=== PATIENT | female | born 1980 | race Caucasian/White ===

== ENCOUNTER 2016-12-16 03:08 | Emergency (ER) | payer BC ==
[2016-12-16 03:17] VITALS: RESP 16; TEMP 97.3
--- NOTE | 2016-12-16 03:26 | ED ---
General Adult HPI - General Chief complaint: Seizure Stated complaint: Syncope Time Seen by Provider: 12/16/16 03:25 Source: family, RN notes reviewed, old records reviewed Mode of arrival: wheelchair Limitations: altered mental status - History of Present Illness Initial comments: This is a 36-year-old female here for evaluation of seizure-like activity. Patient was family member of patient being discharged when she had an episode of collapse and unresponsiveness. Patient remains unresponsive, likely postictal. Patient does have history of seizures, has been 4 years since last seizure per boyfriend - Related Data Home Medications Medication Instructions Recorded Confirmed No Known Home Medications [No 11/09/15 12/16/16 Known Home Medications] Allergies Allergy/AdvReac Type Severity Reaction Status Date / Time peanut Allergy Anaphylaxis Verified 12/16/16 03:22 nuts AdvReac Swelling Uncoded 12/16/16 03:17 pork AdvReac Rash/Hives Uncoded 12/16/16 03:17 rice AdvReac Rash/Hives Uncoded 12/16/16 03:17 Review of Systems ROS Statement: Those systems with pertinent positive or pertinent negative responses have been documented in the HPI. ROS Other: All systems not noted in ROS Statement are negative. Past Medical History Past Medical History: Seizure Disorder History of Any Multi-Drug Resistant Organisms: None Reported Past Surgical History: Cholecystectomy, Tonsillectomy Past Psychological History: No Psychological Hx Reported Smoking Status: Former smoker Past Alcohol Use History: None Reported Past Drug Use History: None Reported General Exam Limitations: altered mental status General appearance: alert, anxious, obtunded, in distress Head exam: Present: atraumatic, normocephalic, normal inspection Eye exam: Present: normal appearance, PERRL, EOMI. Absent: scleral icterus, conjunctival injection, periorbital swelling ENT exam: Present: normal exam, mucous membranes moist Neck exam: Present: normal inspection. Absent: tenderness, meningismus, lymphadenopathy Respiratory exam: Present: normal lung sounds bilaterally. Absent: respiratory distress, wheezes, rales, rhonchi, stridor Cardiovascular Exam: Present: normal rhythm, tachycardia, normal heart sounds. Absent: systolic murmur, diastolic murmur, rubs, gallop, clicks GI/Abdominal exam: Present: soft, normal bowel sounds. Absent: distended, tenderness, guarding, rebound, rigid Extremities exam: Present: normal inspection, full ROM, normal capillary refill. Absent: tenderness, pedal edema, joint swelling, calf tenderness Back exam: Present: normal inspection Neurological exam: Present: alert, oriented X3, CN II-XII intact Psychiatric exam: Present: normal affect, normal mood Skin exam: Present: warm, dry, intact, normal color. Absent: rash Course Vital Signs 12/16/16 12/16/16 12/16/16 03:08 03:29 04:05 Temperature 97.3 F L Pulse Rate 111 H 138 H 106 H Respiratory 16 16 16 Rate Blood Pressure 145/78 155/62 120/72 O2 Sat by Pulse 97 97 98 Oximetry EKG Findings - EKG Comments: EKG Findings:: EKG shows sinus tachycardia rate 106, OK 224, QRS was 80, QTc 440 Medical Decision Making - Medical Decision Making 36 female with recurrent seizure here in the emergency room, patient such medic injury, CT brain is negative lab work is normal patient can be discharged home currently awake and alert able to actively without difficulty - Lab Data Result diagrams: 12/16/16 03:12 12/16/16 03:12 Lab Results 12/16/16 12/16/16 Range/Units 03:12 03:12 WBC 19.2 H (3.8-10.6) k/uL RBC 4.22 (3.80-5.40) m/uL Hgb 12.5 (11.4-16.0) gm/dL Hct 39.5 (34.0-46.0) % MCV 93.6 (80.0-100.0) fL MCH 29.6 (25.0-35.0) pg MCHC 31.6 (31.0-37.0) g/dL RDW 12.4 (11.5-15.5) % Plt Count 506 H (150-450) k/uL Neutrophils % 61 % Lymphocytes % 29 % Monocytes % 6 % Eosinophils % 1 % Basophils % 1 % Neutrophils # 11.8 H (1.3-7.7) k/uL Lymphocytes # 5.5 H (1.0-4.8) k/uL Monocytes # 1.1 H (0-1.0) k/uL Eosinophils # 0.2 (0-0.7) k/uL Basophils # 0.1 (0-0.2) k/uL Sodium 144 (137-145) mmol/L Potassium 3.8 (3.5-5.1) mmol/L Chloride 103 (98-107) mmol/L Carbon Dioxide 14 L (22-30) mmol/L Anion Gap 27 mmol/L BUN 13 (7-17) mg/dL Creatinine 0.70 (0.52-1.04) mg/dL Est GFR (MDRD) Af Amer >60 (>60 ml/min/1.73 sqM) Est GFR (MDRD) Non-Af >60 (>60 ml/min/1.73 sqM) Glucose 114 H (74-99) mg/dL Calcium 9.6 (8.4-10.2) mg/dL Phosphorus 6.6 H (2.5-4.5) mg/dL Magnesium 1.9 (1.6-2.3) mg/dL Total Bilirubin 0.6 (0.2-1.3) mg/dL AST 27 (14-36) U/L ALT 32 (9-52) U/L Alkaline Phosphatase 73 (38-126) U/L Total Protein 9.4 H (6.3-8.2) g/dL Albumin 5.0 (3.5-5.0) g/dL Salicylates <1.0 mg/dL Acetaminophen <10.0 ug/mL Serum Alcohol <10 mg/dL - Radiology Data Radiology results: report reviewed (CT brain and C-spine negative for traumatic injury), image reviewed Disposition Clinical Impression: Epileptic seizure Disposition: HOME SELF-CARE Condition: Good Instructions: Recurrent Seizures in Adults (ED) Referrals: None,Stated [Primary Care Provider] - 1-2 days
[2016-12-16] MEDS ORDERED: SODIUM CHLORIDE 0.9% 1,000 ML IV STA (03:29)
[2016-12-16] MEDS ORDERED: SODIUM CHLORIDE 0.9% 500 ML IV STA (03:29)
[2016-12-16] MEDS ORDERED: LORazepam 2 MG/ML SYRINGE IV STA (03:29)
[2016-12-16 03:44] LABS: Basophils # (A) 0.1 k/uL (0-0.2); Basophils % (A) 1 %; CH 29.4; CHCM 31.5; Eosinophils # (A) 0.2 k/uL (0-0.7); Eosinophils % (A) 1 %; HCT 39.5 % (34.0-46.0); HDW 2.35; HGB 12.5 gm/dL (11.4-16.0); Luc # (Auto) 0.52; Luc % (Auto) 3; Lymphocytes # (A) 5.5 k/uL (1.0-4.8); Lymphocytes % (A) 29 %; MCH 29.6 pg (25.0-35.0); MCHC 31.6 g/dL (31.0-37.0); MCV 93.6 fL (80.0-100.0); Monocytes # (A) 1.1 k/uL (0-1.0); Monocytes % (A) 6 %; Neutrophils # (A) 11.8 k/uL (1.3-7.7); Neutrophils % (A) 61 %; RBC 4.22 m/uL (3.80-5.40); RDW 12.4 % (11.5-15.5); WBC 19.2 k/uL (3.8-10.6)
--- NOTE | 2016-12-16 03:53 | CT ---
EXAMINATION TYPE: CT brain rowdy wo con DATE OF EXAM: 12/16/2016 3:48 AM COMPARISON: NONE HISTORY: seizure, fall, AMS CT DLP: 1347.50 mGycm Automated exposure control for dose reduction was used. TECHNIQUE: CT scan of the head and cervical spine are performed without contrast. FINDINGS: The ventricles and sulci appear normal. There is no mass effect nor midline shift. There is no sign of intracranial hemorrhage. The calvarium is intact. The cervical vertebra have normal spacing and alignment. Posterior elements are intact. Facet joints appear normal. Skull base is intact. There is no sign of a fracture. IMPRESSION: Normal CT scan of the brain. Normal CT scan of the cervical spine.
[2016-12-16 03:59] LABS: ALT 32 U/L (9-52); AST 27 U/L (14-36); Acetaminophen <10.0 ug/mL; Alcohol <10 mg/dL; Alkaline Phosphatase 73 U/L (38-126); Anion Gap 27 mmol/L; Blood Urea Nitrogen 13 mg/dL (7-17); Calcium 9.6 mg/dL (8.4-10.2); Carbon Dioxide 14 mmol/L (22-30); Chloride 103 mmol/L (98-107); Glucose 114 mg/dL (74-99); Magnesium 1.9 mg/dL (1.6-2.3); Non-African American GFR(MDRD) >60 (>60 ml/min/1.73 sqM); Phosphorous 6.6 mg/dL (2.5-4.5); Salicylate <1.0 mg/dL; Sodium 144 mmol/L (137-145); Total Bilirubin 0.6 mg/dL (0.2-1.3); Total Protein 9.4 g/dL (6.3-8.2)
[2016-12-16 04:06] VITALS: BP 120/72; PULSE 106
[2016-12-16 04:08] LABS: Potassium 3.8 mmol/L (3.5-5.1)
== END 2016-12-16 04:50 | disposition home or self-care (01) ==
LOC: EC 03:08
DX: G40.909 Epilepsy, unspecified, not intractable, without status epilepticus (principal); R00.0 Tachycardia, unspecified; R41.82 Altered mental status, unspecified; R55 Syncope and collapse; Z87.891 Personal history of nicotine dependence; Z91.010 Allergy to peanuts; Z91.018 Allergy to other foods
CPT/HCPCS: 36415; 93005; 80053; 83735; 84100; 85025; 83520 ×2; 80320; 72125; 70450; 99285; 96374; 96361; J2060

== ENCOUNTER 2017-10-30 14:55 | Emergency (ER) | payer BC, OTHER ==
[2017-10-30 15:37] VITALS: BP 136/87; PULSE 62; RESP 20; TEMP 98.1
[2017-10-30] MEDS ORDERED: ORPHENADRINE 30 MG/ML 2 ML VIAL IM STA (16:01)
[2017-10-30] MEDS ORDERED: KETOROLAC 30 MG/ML 1 ML VIAL IM STA (16:01)
--- NOTE | 2017-10-30 16:12 | ED ---
Back Pain HPI - General Chief Complaint: Back Pain/Injury Stated Complaint: back pain Time Seen by Provider: 10/30/17 15:54 Source: patient Limitations: no limitations - History of Present Illness Initial Comments: 36-year-old female patient presents to the emergency department today for evaluation of back pain. Patient states that she has a history of chronic back pain with frequent muscle spasms. She states that her pain is consistent with her usual pain location however the pain seems to be worse today. Patient states symptoms started when she woke this morning. States it does feel like a spasm. She states that the pain location is and bilateral flanks that radiates down into her lower back. She denies any pain radiation down her aches. Denies any numbness or tingling in her legs. Denies any loss of bowel or bladder control. Denies any saddle anesthesia. She denies any falls or injuries causing the pain. She is able to ambulate. States pain worsens with sitting. She states she has been having some chills, and was nauseated this morning. She denies any nausea or vomiting. Denies any fever or chills. Denies any hematuria, dysuria, urinary urgency, urinary frequency. Patient denies any recent rash, shortness breath, chest pain, abdominal pain, diarrhea, constipation, back pain, numbness, tingling, dizziness, weakness, headache, visual changes, or any other complaints. - Related Data Previous Rx's Medication Instructions Recorded Ibuprofen [Motrin] 800 mg PO Q6HR #30 tab 10/11/17 Lidocaine [Lidoderm 5% Patch] 1 patch TRANSDERM DAILY #7 patch 10/11/17 traMADol HCl [Ultram] 50 mg PO Q6H PRN #20 tab 10/11/17 Ibuprofen [Motrin] 600 mg PO Q8HR PRN #30 tab 10/30/17 Orphenadrine [Norflex] 100 mg PO Q12H #10 tablet.er 10/30/17 traMADol HCL [Ultram] 50 mg PO Q6HR PRN #15 tab 10/30/17 Allergies Allergy/AdvReac Type Severity Reaction Status Date / Time carisoprodol [From Soma] Allergy Unknown Verified 10/30/17 15:37 cyclobenzaprine Allergy Rash/Hives Verified 10/30/17 15:37 methocarbamol [From Robaxin] Allergy Rash/Hives Verified 10/30/17 15:37 naproxen [From Naprosyn] Allergy Nausea Verified 10/30/17 15:37 peanut Allergy Anaphylaxis Verified 10/30/17 15:37 nuts AdvReac Swelling Uncoded 10/30/17 15:37 pork AdvReac Rash/Hives Uncoded 10/30/17 15:37 rice AdvReac Rash/Hives Uncoded 10/30/17 15:37 Review of Systems ROS Statement: Those systems with pertinent positive or pertinent negative responses have been documented in the HPI. ROS Other: All systems not noted in ROS Statement are negative. Past Medical History Past Medical History: Seizure Disorder Additional Past Medical History / Comment(s): migraines History of Any Multi-Drug Resistant Organisms: None Reported Past Surgical History: Cholecystectomy, Tonsillectomy Past Psychological History: No Psychological Hx Reported Smoking Status: Former smoker Past Alcohol Use History: None Reported Past Drug Use History: None Reported General Exam Limitations: no limitations General appearance: alert, in no apparent distress, other (Physical well- developed, well-nourished adult female patient in no acute distress. Vital signs upon presentation are temperature 98.1F, pulse 62, respirations 20, blood pressure 136/87, pulse ox 100% on room air.) Eye exam: Present: normal appearance, PERRL, EOMI. Absent: scleral icterus, conjunctival injection, periorbital swelling ENT exam: Present: normal exam, normal oropharynx, mucous membranes moist Neck exam: Present: normal inspection. Absent: tenderness, meningismus, lymphadenopathy Respiratory exam: Present: normal lung sounds bilaterally. Absent: respiratory distress, wheezes, rales, rhonchi, stridor Cardiovascular Exam: Present: regular rate, normal rhythm, normal heart sounds. Absent: systolic murmur, diastolic murmur, rubs, gallop, clicks GI/Abdominal exam: Present: soft, normal bowel sounds. Absent: distended, tenderness, guarding, rebound, rigid Back exam: Present: normal inspection, CVA tenderness (R), CVA tenderness (L) Neurological exam: Present: alert, oriented X3, CN II-XII intact Psychiatric exam: Present: normal affect, normal mood Skin exam: Present: warm, dry, intact, normal color. Absent: rash Course Vital Signs 10/30/17 15:35 Temperature 98.1 F Pulse Rate 62 Respiratory 20 Rate Blood Pressure 136/87 O2 Sat by Pulse 100 Oximetry Medical Decision Making - Medical Decision Making 36-year-old female patient presented to the emergency room in today for complaints of low back pain. Physical examination did reveal some paraspinal tenderness both left and right. Negative straight leg test bilaterally. Skin to the lower extremities is pink, warm, and dry. Cap refills less than 3 seconds. Patient's pain was in the flank region is also did obtain a urinalysis which was negative for any acute infection. HCG was negative. Patient will be discharged home with prescriptions for pain dictation muscle relaxers. Patient will be instructed to follow-up with her primary care physician for recheck in 1-2 days. She is instructed to return here immediately for any new, worsening, or concerning symptoms. Please note this is the patient's second visit this month requesting pain medications for back pain. I did discuss with the patient that we do not provide narcotic pain prescriptions for chronic pain issues on a routine basis. I told her that she would be unable to get these prescriptions here in the future. She states that she is attempting to establish with a primary care physician and agrees with this. - Lab Data Lab Results 10/30/17 10/30/17 Range/Units 16:03 16:03 Urine Color Light Yellow Urine Appearance Cloudy H (Clear) Urine pH 6.5 (5.0-8.0) Ur Specific [place] 1.007 (1.001-1.035) Urine Protein Negative (Negative) Urine Glucose (UA) Negative (Negative) Urine Ketones Negative (Negative) Urine Blood Negative (Negative) Urine Nitrite Negative (Negative) Urine Bilirubin Negative (Negative) Urine Urobilinogen <2.0 (<2.0) mg/dL Ur Leukocyte Esterase Trace H (Negative) Urine RBC 1 (0-5) /hpf Urine WBC 3 (0-5) /hpf Ur Squamous Epith Cells 4 (0-4) /hpf Urine Bacteria Rare H (None) /hpf Urine Mucus Rare H (None) /hpf Urine HCG, Qual Not Detected (Not Detectd) Disposition Clinical Impression: Acute exacerbation of chronic low back pain Disposition: HOME SELF-CARE Condition: Good Instructions: Acute Low Back Pain (ED) Additional Instructions: Warm moist heat to the lower back. Take medications as directed. Gentle range of motion exercises. Follow-up with your primary care physician for recheck in 1-2 days. Return here immediately for any new, worsening, or concerning symptoms. Prescriptions: Ibuprofen [Motrin] 600 mg PO Q8HR PRN #30 tab PRN Reason: Pain Orphenadrine [Norflex] 100 mg PO Q12H #10 tablet.er traMADol HCL [Ultram] 50 mg PO Q6HR PRN #15 tab PRN Reason: Pain Referrals: None,Stated [Primary Care Provider] - 1-2 days Time of Disposition: 16:40
[2017-10-30 16:28] LABS: Appearance,Urine Cloudy (Clear); Bacteria,Urine Rare /hpf; Bilirubin,Urine Negative (Negative); Glucose,Urine (UA) Negative (Negative); Ketones,Urine Negative (Negative); Leukocyte Esterase,Urine Trace (Negative); Mucus,Urine Rare /hpf; Nitrite,Urine Negative (Negative); PH, Urine 6.5 (5.0-8.0); Particle Count 4022; Protein,Urine Negative (Negative); RBC,Urine 1 /hpf (0-5); Specific Gravity,Urine 1.007 (1.001-1.035); Squamous Epithelial Cell,Urine 4 /hpf (0-4); UA Billing (MACRO vs. MICRO) MICRO; Urobilinogen,Urine <2.0 mg/dL (<2.0); WBC,Urine 3 /hpf (0-5)
== END 2017-10-30 16:47 | disposition home or self-care (01) ==
LOC: EC 14:55
DX: M54.5 Low back pain (principal); R10.9 Unspecified abdominal pain; Z90.49 Acquired absence of other specified parts of digestive tract; Z87.891 Personal history of nicotine dependence; Z88.8 Allergy status to other drugs, medicaments and biological substances; Z88.6 Allergy status to analgesic agent; Z91.010 Allergy to peanuts; Z91.018 Allergy to other foods
CPT/HCPCS: 81001; 81025; 99283; 96372 ×2; J2360; J1885

== ENCOUNTER 2017-11-18 12:50 | Emergency (ER) | payer BC, OTHER ==
[2017-11-18 13:01] VITALS: BP 121/73; PULSE 71; RESP 18; TEMP 98.7
--- NOTE | 2017-11-18 13:11 | ED ---
General Adult HPI - General Chief complaint: Back Pain/Injury Stated complaint: Back Pain Time Seen by Provider: 11/18/17 13:04 Source: patient, RN notes reviewed, old records reviewed Mode of arrival: ambulatory Limitations: no limitations - History of Present Illness Initial comments: 36-year-old female history of chronic back pain presents with 3 days of worsening mid and lower back pain after shoveling snow. Patient has been taking Motrin and tramadol for her chronic back pain, she has been out of these medications for several days. She has an appointment with her new primary care physician on Sunday of this week. She also has an appointment with a chiropractor. She has had no bowel or bladder changes. No sensory deficits lower extremity. No lower extremity numbness tingling, no weakness. No fever or chills. No abdominal pain nausea vomiting. No chest pain or shortness of breath. Back pain is similar to baseline, worse without pain medication. - Related Data Home Medications Medication Instructions Recorded Confirmed No Known Home Medications [No 11/18/17 11/18/17 Known Home Medications] Allergies Allergy/AdvReac Type Severity Reaction Status Date / Time carisoprodol [From Soma] Allergy Unknown Verified 11/18/17 13:15 cyclobenzaprine Allergy Rash/Hives Verified 11/18/17 13:15 ketorolac [From Toradol] Allergy Unknown Verified 11/18/17 13:15 methocarbamol [From Robaxin] Allergy Rash/Hives Verified 11/18/17 13:15 naproxen [From Naprosyn] Allergy Nausea Verified 11/18/17 13:15 peanut Allergy Anaphylaxis Verified 11/18/17 13:15 muscle relaxers Allergy Unknown Uncoded 11/18/17 13:03 nuts AdvReac Swelling Uncoded 11/18/17 13:02 pork AdvReac Rash/Hives Uncoded 11/18/17 13:02 rice AdvReac Rash/Hives Uncoded 11/18/17 13:02 Review of Systems ROS Statement: Those systems with pertinent positive or pertinent negative responses have been documented in the HPI. ROS Other: All systems not noted in ROS Statement are negative. Past Medical History Past Medical History: Seizure Disorder Additional Past Medical History / Comment(s): migraines History of Any Multi-Drug Resistant Organisms: None Reported Past Surgical History: Cholecystectomy, Tonsillectomy Past Psychological History: No Psychological Hx Reported Smoking Status: Former smoker Past Alcohol Use History: None Reported Past Drug Use History: None Reported General Exam Limitations: no limitations General appearance: alert, in no apparent distress Head exam: Present: atraumatic, normocephalic Eye exam: Present: normal appearance, PERRL, EOMI ENT exam: Present: normal exam. Absent: normal oropharynx, mucous membranes dry Neck exam: Present: normal inspection. Absent: tenderness, meningismus Respiratory exam: Present: normal lung sounds bilaterally. Absent: respiratory distress, wheezes Cardiovascular Exam: Present: regular rate, normal rhythm GI/Abdominal exam: Present: soft. Absent: distended, tenderness, guarding Extremities exam: Present: normal inspection, full ROM, normal capillary refill. Absent: pedal edema Back exam: Present: normal inspection, full ROM, tenderness, paraspinal tenderness Neurological exam: Present: alert, oriented X3, CN II-XII intact, normal gait, reflexes normal. Absent: motor sensory deficit Psychiatric exam: Present: normal affect, normal mood Skin exam: Present: warm, dry, intact. Absent: cyanosis, diaphoretic Course Vital Signs 11/18/17 12:57 Temperature 98.7 F Pulse Rate 71 Respiratory 18 Rate Blood Pressure 121/73 O2 Sat by Pulse 99 Oximetry Medical Decision Making - Medical Decision Making 36-year-old female acute on chronic back pain. Patient has no alarming features on history or physical exam. She is out of her pain medication. These medicines will be filled. She will continue her back exercises and follow -up with her primary care physician. Disposition Clinical Impression: Mechanical back pain Disposition: HOME SELF-CARE Condition: Good Instructions: Chronic Back Pain (ED) Additional Instructions: Please maintain appointment with primary care physician on Sunday. Referrals: None,Stated [Primary Care Provider] - 1-2 days Time of Disposition: 13:11
== END 2017-11-18 13:28 | disposition home or self-care (01) ==
LOC: EC 12:50
DX: M54.5 Low back pain (principal); G89.29 Other chronic pain; Z87.891 Personal history of nicotine dependence; Z88.8 Allergy status to other drugs, medicaments and biological substances; Z88.6 Allergy status to analgesic agent; Z91.010 Allergy to peanuts; Z91.018 Allergy to other foods; Y93.H1 Activity, digging, shoveling and raking
CPT/HCPCS: 99283

== ENCOUNTER 2017-11-29 19:13 | Emergency (ER) | payer OTHER ==
[2017-11-29 19:19] VITALS: BP 133/84; PULSE 66; RESP 18; TEMP 100.3
[2017-11-29 21:18] LABS: Appearance,Urine Clear (Clear); Bilirubin,Urine Negative (Negative); Blood,Urine Negative (Negative); Color,Urine Light Yellow; Glucose,Urine (UA) Negative (Negative); Ketones,Urine Negative (Negative); Leukocyte Esterase,Urine Negative (Negative); Nitrite,Urine Negative (Negative); Protein,Urine Negative (Negative); Specific Gravity,Urine 1.007 (1.001-1.035); Urobilinogen,Urine <2.0 mg/dL (<2.0)
--- NOTE | 2017-11-29 21:39 | ED ---
Back Pain HPI - General Chief Complaint: Back Pain/Injury Stated Complaint: back pain/vomiting Time Seen by Provider: 11/29/17 20:07 Source: patient, RN notes reviewed, old records reviewed Limitations: no limitations - History of Present Illness Initial Comments: This patient is a 36-year-old female presents with lower back pain. She reports having severe pain it caused her to vomit today. She reported worse with movement. She said she's had this happen in the past before. She states she usually has to have a short course of pain medicine to get through this. She states Motrin has not been helping. She denies any urinary symptoms. - Related Data Home Medications Medication Instructions Recorded Confirmed No Known Home Medications [No 11/18/17 11/29/17 Known Home Medications] Allergies Allergy/AdvReac Type Severity Reaction Status Date / Time carisoprodol [From Soma] Allergy Unknown Verified 11/29/17 19:55 cyclobenzaprine Allergy Rash/Hives Verified 11/29/17 19:55 ketorolac [From Toradol] Allergy Unknown Verified 11/29/17 19:55 methocarbamol [From Robaxin] Allergy Rash/Hives Verified 11/29/17 19:55 naproxen [From Naprosyn] Allergy Nausea Verified 11/29/17 19:55 peanut Allergy Anaphylaxis Verified 11/29/17 19:55 muscle relaxers Allergy Unknown Uncoded 11/29/17 19:19 nuts AdvReac Swelling Uncoded 11/29/17 19:19 pork AdvReac Rash/Hives Uncoded 11/29/17 19:19 rice AdvReac Rash/Hives Uncoded 11/29/17 19:19 Review of Systems ROS Statement: Those systems with pertinent positive or pertinent negative responses have been documented in the HPI. ROS Other: All systems not noted in ROS Statement are negative. Past Medical History Past Medical History: Seizure Disorder Additional Past Medical History / Comment(s): migraines, History of Any Multi-Drug Resistant Organisms: None Reported Past Surgical History: Cholecystectomy, Tonsillectomy Past Psychological History: No Psychological Hx Reported Smoking Status: Never smoker Past Alcohol Use History: None Reported Past Drug Use History: None Reported General Exam - General Exam Comments Initial Comments: This patient is a 36-year-old female. No distress. Limitations: no limitations General appearance: alert, in no apparent distress Head exam: Present: atraumatic, normocephalic, normal inspection Eye exam: Present: normal appearance, PERRL, EOMI. Absent: scleral icterus, conjunctival injection, periorbital swelling ENT exam: Present: normal exam, mucous membranes moist Neck exam: Present: normal inspection. Absent: tenderness, meningismus, lymphadenopathy Cardiovascular Exam: Present: regular rate, normal rhythm, normal heart sounds. Absent: systolic murmur, diastolic murmur, rubs, gallop, clicks GI/Abdominal exam: Present: soft, normal bowel sounds. Absent: distended, tenderness, guarding, rebound, rigid Extremities exam: Present: normal inspection, full ROM, normal capillary refill. Absent: tenderness, pedal edema, joint swelling, calf tenderness Back exam: Present: normal inspection, full ROM, tenderness (lumbar tenderness) Neurological exam: Present: alert, oriented X3, CN II-XII intact Psychiatric exam: Present: normal affect, normal mood Course Vital Signs 11/29/17 19:14 Temperature 100.3 F H Pulse Rate 66 Respiratory 18 Rate Blood Pressure 133/84 O2 Sat by Pulse 100 Oximetry Medical Decision Making - Medical Decision Making It is a 36-year-old female with complaints of lower back pain causing her to vomit. She runs with a low-grade temperature of 100.3. I requested a urine sample. Patient left a urine sample. Patient reports that she has to leave. She will be leaving against medical advice. She said she has to leave because her children are being bad acting up - Lab Data Lab Results 11/29/17 Range/Units 20:55 Urine Color Light Yellow Urine Appearance Clear (Clear) Urine pH 7.0 (5.0-8.0) Ur Specific [place] 1.007 (1.001-1.035) Urine Protein Negative (Negative) Urine Glucose (UA) Negative (Negative) Urine Ketones Negative (Negative) Urine Blood Negative (Negative) Urine Nitrite Negative (Negative) Urine Bilirubin Negative (Negative) Urine Urobilinogen <2.0 (<2.0) mg/dL Ur Leukocyte Esterase Negative (Negative) Disposition Clinical Impression: Mechanical back pain Disposition: Left Against Medical Advice Condition: Stable Referrals: None,Stated [Primary Care Provider] - 1-2 days
== END 2017-11-29 21:00 | disposition left against medical advice (07) ==
LOC: EC 19:13
DX: M54.5 Low back pain (principal); R11.10 Vomiting, unspecified; R50.9 Fever, unspecified; Z88.6 Allergy status to analgesic agent; Z88.8 Allergy status to other drugs, medicaments and biological substances; Z91.010 Allergy to peanuts; Z91.018 Allergy to other foods
CPT/HCPCS: 81003; 99284

== ENCOUNTER 2018-01-14 12:09 | Emergency (ER) | payer OTHER ==
[2018-01-14 12:33] VITALS: BP 119/85; PULSE 70; RESP 18; TEMP 98.5
--- NOTE | 2018-01-14 13:05 | ED ---
Back Pain HPI - General Chief Complaint: Back Pain/Injury Stated Complaint: Back Pain Time Seen by Provider: 01/14/18 12:41 Source: patient, RN notes reviewed Limitations: no limitations - History of Present Illness Initial Comments: This is a 37-year-old female presents to the emergency department with chief complaint of acute on chronic back pain. Patient states that she is experiencing mid to low back pain on both sides of her spine. She states that she is experiencing muscle spasms. Denies any recent injuries or falls. Increase in pain started this morning. She states that this is normal for her but does not have a family doctor to treat her. She states that she does have an appointment set up for next Sunday. This patient is well-known to the emergency department. She requests to have a starter pack of Tylenol with Codeine. I explained to patient that treatment for muscle spasms is anti- inflammatories or muscle relaxers. When offered Toradol and Norflex, patient states that she is ALLERGIC to both. Denies any saddle paresthesias or loss of bladder or bowel function. Denies any numbness or tingling. Denies any urinary symptoms such as increased frequency, dysuria or hematuria. Denies fever , chills, chest pain, shortness of breath, abdominal pain, nausea or vomiting, constipation or diarrhea, headache or vision changes. - Related Data Previous Rx's Medication Instructions Recorded Cyclobenzaprine [Flexeril] 10 mg PO TID #12 tab 01/14/18 Ibuprofen 600 mg PO Q6HR #20 tablet 01/14/18 Allergies Allergy/AdvReac Type Severity Reaction Status Date / Time carisoprodol [From Soma] Allergy Unknown Verified 01/14/18 12:46 cyclobenzaprine Allergy Rash/Hives Verified 01/14/18 12:46 ketorolac [From Toradol] Allergy Unknown Verified 01/14/18 12:46 methocarbamol [From Robaxin] Allergy Rash/Hives Verified 01/14/18 12:46 naproxen [From Naprosyn] Allergy Nausea Verified 01/14/18 12:46 orphenadrine [From Norflex] Allergy Vomiting Verified 01/14/18 12:46 peanut Allergy Anaphylaxis Verified 01/14/18 12:46 muscle relaxers Allergy Unknown Uncoded 01/14/18 12:34 nuts AdvReac Swelling Uncoded 01/14/18 12:34 pork AdvReac Rash/Hives Uncoded 01/14/18 12:34 rice AdvReac Rash/Hives Uncoded 01/14/18 12:34 Review of Systems ROS Statement: Those systems with pertinent positive or pertinent negative responses have been documented in the HPI. ROS Other: All systems not noted in ROS Statement are negative. Past Medical History Past Medical History: Seizure Disorder Additional Past Medical History / Comment(s): migraines, back pain History of Any Multi-Drug Resistant Organisms: None Reported Past Surgical History: Cholecystectomy, Tonsillectomy Past Psychological History: No Psychological Hx Reported Smoking Status: Never smoker Past Alcohol Use History: None Reported Past Drug Use History: None Reported General Exam - General Exam Comments Initial Comments: General: Awake and alert, well-developed; in no apparent distress. HEENT: Head atraumatic, normocephalic. Pupils are equal, round and reactive to light. Extraocular movements intact. Neck: Supple. Normal ROM. Cardiovascular: Regular rate and rhythm. No murmurs, rubs or gallops. Chest symmetrical. Respiratory: Lungs clear to auscultation bilaterally. No wheezes, rales or rhonchi. Normal respiratory effort with no use of accessory muscles. Musculoskeletal: Normal ROM, no tenderness bilateral upper and lower extremities. Normal range of motion of spine. Tenderness on palpation of bilateral mid back to lumbar paraspinal muscles. Ambulating normally. Skin: [place], warm and dry without rashes or lesions. Neurological: Alert and oriented x3. CN II-XII grossly intact. Speech is fluent and answers are appropriate. No focal neuro deficits. Limitations: no limitations Course Vital Signs 01/14/18 12:30 Temperature 98.5 F Pulse Rate 70 Respiratory 18 Rate Blood Pressure 119/85 O2 Sat by Pulse 100 Oximetry Medical Decision Making - Medical Decision Making This is a 37-year-old female who presents to the emergency department with chief complaint of acute on chronic back pain. Patient denies any saddle paresthesias, loss of bladder or bowel function or numbness and tingling. She denies any recent falls or injuries. She states that she is experiencing muscle spasms which is normal for her. States that she is ALLERGIC to Toradol and Norflex and requests to have a starter pack for Tylenol with Codeine. Patient states that she has taken ibuprofen and Flexeril in the past without having a reaction. I offered these medications to patient. Patient and her are well-known to the emergency department and display drug-seeking behavior. Tugg was run and it is noted that patient travels all over [place] to receive prescriptions for tramadol. She is in no acute distress and will be discharged home. She is in agreement and voices understanding. All questions answered. Disposition Clinical Impression: Back muscle spasm Disposition: HOME SELF-CARE Condition: Good Instructions: Muscle Spasm (ED), Chronic Back Pain (ED) Additional Instructions: Please take medications as prescribed. Please follow up with primary care provider within 1-2 days. Return to emergency department if symptoms should worsen or any concerns arise. Prescriptions: Cyclobenzaprine [Flexeril] 10 mg PO TID #12 tab Ibuprofen 600 mg PO Q6HR #20 tablet Referrals: None,Stated [Primary Care Provider] - 1-2 days Time of Disposition: 13:02
== END 2018-01-14 13:14 | disposition home or self-care (01) ==
LOC: EC 12:09
DX: M62.830 Muscle spasm of back (principal); Z88.6 Allergy status to analgesic agent; Z88.8 Allergy status to other drugs, medicaments and biological substances; Z91.010 Allergy to peanuts; Z91.018 Allergy to other foods
CPT/HCPCS: 99283

== ENCOUNTER 2019-03-01 10:45 | Emergency (ER) | payer OTHER ==
--- NOTE | 2019-03-01 11:07 | ED ---
Female Urogenital HPI - General Chief complaint: Vaginal Bleeding Stated complaint: Poss miscarriage Time Seen by Provider: 03/01/19 10:52 Source: patient Mode of arrival: ambulatory Limitations: no limitations - History of Present Illness Initial comments: Patient is a female, 38 years of age who presents with chief complaint of vaginal bleeding for the last 2 days. She is approximately 6 weeks and 2 days . Patient states that she has been having periodic bleeding over the last 2 days. She's been to the emergency department by her house twice for evaluation and was referred to this hospital for an ultrasound. On previous evaluations, patient was noted to have an initial beta hCG about 3500 with a repeat of 2800. She was discharged with Instructions for a threatened . Patient denies any fever, chills, chest pain or shortness of breath. She has mild abdominal cramping. The patient cannot identify an inciting incident. There are no aggravating or alleviating factors. Timing is constant. - Related Data Previous Rx's Medication Instructions Recorded Cyclobenzaprine [Flexeril] 10 mg PO TID #12 tab 01/14/18 Ibuprofen 600 mg PO Q6HR #20 tablet 01/14/18 Allergies Allergy/AdvReac Type Severity Reaction Status Date / Time carisoprodol [From Soma] Allergy Unknown Verified 03/01/19 10:51 cyclobenzaprine Allergy Rash/Hives Verified 03/01/19 10:51 ketorolac [From Toradol] Allergy Unknown Verified 03/01/19 10:51 methocarbamol [From Robaxin] Allergy Rash/Hives Verified 03/01/19 10:51 naproxen [From Naprosyn] Allergy Nausea Verified 03/01/19 10:51 orphenadrine [From Norflex] Allergy Vomiting Verified 03/01/19 10:51 peanut Allergy Anaphylaxis Verified 03/01/19 10:51 muscle relaxers Allergy Unknown Uncoded 03/01/19 10:51 nuts AdvReac Swelling Uncoded 03/01/19 10:51 pork AdvReac Rash/Hives Uncoded 03/01/19 10:51 rice AdvReac Rash/Hives Uncoded 03/01/19 10:51 Review of Systems ROS Statement: Those systems with pertinent positive or pertinent negative responses have been documented in the HPI. ROS Other: All systems not noted in ROS Statement are negative. Gastrointestinal: Reports: abdominal pain Genitourinary: Reports: as per HPI Past Medical History Past Medical History: Seizure Disorder Additional Past Medical History / Comment(s): migraines, back pain History of Any Multi-Drug Resistant Organisms: None Reported Past Surgical History: Cholecystectomy, Tonsillectomy Past Psychological History: No Psychological Hx Reported Smoking Status: Never smoker Past Alcohol Use History: None Reported Past Drug Use History: None Reported General Exam Limitations: no limitations General appearance: alert, in no apparent distress Head exam: Present: atraumatic, normocephalic Eye exam: Present: normal appearance, PERRL ENT exam: Present: normal exam, mucous membranes moist Neck exam: Present: normal inspection Respiratory exam: Present: normal lung sounds bilaterally, respiratory distress. Absent: wheezes, rales Cardiovascular Exam: Present: regular rate, normal rhythm GI/Abdominal exam: Present: soft. Absent: distended, tenderness Rectal exam: Present: deferred Extremities exam: Present: normal inspection Back exam: Present: normal inspection Neurological exam: Present: alert, oriented X3, CN II-XII intact, normal gait Psychiatric exam: Present: normal affect, normal mood Skin exam: Present: warm, dry, intact Course Vital Signs 03/01/19 10:48 Temperature 97.9 F Pulse Rate 62 Respiratory 16 Rate Blood Pressure 116/75 O2 Sat by Pulse 100 Oximetry Medical Decision Making - Medical Decision Making Patient presents chief complaint of vaginal bleeding, approximately 6 weeks and 2 days . On initial evaluation, vitals are stable, patient is a no acute distress. She will be evaluated with basic labs including a urinalysis, and type and screen. Of note, patient has had declining beta hCGs with an initial of about 3500, and a repeat of 2800. She's not had an ultrasound. She has follow-up with Dr. Watkins on March 11. 1:12 PM Urinalysis shows hematuria with 11 white cells, given patient is asymptomatic as is likely not a urinary tract infection. Patient refusing other labs. Clarified that her most recent beta hCG at 2800 was performed this morning at 3 AM. Ultrasound does not show any evidence of an intrauterine or extrauterine . At this time this is very likely a missed . The patient was instructed to speak with her OB first thing Sunday morning, keep her follow-up appointment. Return to ED if symptoms worsen or change. - Lab Data Lab Results 03/01/19 Range/Units 11:26 Urine Color Yellow Urine Appearance Turbid H (Clear) Urine pH 7.5 (5.0-8.0) Ur Specific [place] 1.017 (1.001-1.035) Urine Protein Trace H (Negative) Urine Glucose (UA) Negative (Negative) Urine Ketones Negative (Negative) Urine Blood Moderate H (Negative) Urine Nitrite Negative (Negative) Urine Bilirubin Negative (Negative) Urine Urobilinogen <2.0 (<2.0) mg/dL Ur Leukocyte Esterase Small H (Negative) Urine RBC 11 H (0-5) /hpf Urine WBC 2 (0-5) /hpf Ur Squamous Epith Cells 6 H (0-4) /hpf Amorphous Sediment Moderate H (None) /hpf Urine Bacteria Rare H (None) /hpf Urine Mucus Rare H (None) /hpf Disposition Clinical Impression: Missed Disposition: HOME SELF-CARE Condition: Good Instructions (If sedation given, give patient instructions): Miscarriage (ED) Is patient prescribed a controlled substance at d/c from ED?: No Referrals: None,Stated [Primary Care Provider] - 1-2 days
[2019-03-01 11:50] LABS: Amorphous Sediment,Urine Moderate /hpf; Appearance,Urine Turbid (Clear); Bacteria,Urine Rare /hpf; Bilirubin,Urine Negative (Negative); Blood,Urine Moderate (Negative); Color,Urine Yellow; Glucose,Urine (UA) Negative (Negative); Ketones,Urine Negative (Negative); Leukocyte Esterase,Urine Small (Negative); Mucus,Urine Rare /hpf; Nitrite,Urine Negative (Negative); PH, Urine 7.5 (5.0-8.0); Protein,Urine Trace (Negative); RBC,Urine 11 /hpf (0-5); Specific Gravity,Urine 1.017 (1.001-1.035); Squamous Epithelial Cell,Urine 6 /hpf (0-4); Urobilinogen,Urine <2.0 mg/dL (<2.0); WBC,Urine 2 /hpf (0-5)
--- NOTE | 2019-03-01 12:57 | US ---
EXAMINATION TYPE: Transabdominal DATE OF EXAM: 03/01/2019 12:21 PM COMPARISON: NONE CLINICAL HISTORY: Pain. Bleeding x 2 days. RLQ pain. EXAM PERFORMED: Transvaginal (TV) and Transabdominal (TA) EXAM MEASUREMENTS: GESTATIONAL AGE / DATING Dates by LMP: ( 4 weeks/1 days) EDC: 11/07/2019 Dates by Current Scan for: No IUP seen at this time MATERNAL ANATOMY Uterus: 8.1x 4.9 x 3.9 cm Right Ovary: 2.5 x 1.8 x 1.5 cm Left Ovary: 3.3 x 1.2 x 1.6 cm Post CDS / Adnexa: no Presence of free fluid: no Presence of corpus luteal cyst: right ovarian lesion = 1.3 x 1.1 x 0.9 cm Presence of subchorionic bleed: no GESTATION / SURVEY IUP: No IUP seen at this time Date of LMP: 01/31/2019, Beta HcG (if available): Not available at this time No GS, YS or CRL visualized. Endometrium measured 1.0 cm with internal focal area = 2.8 x 0.9 cm. In right adnexa, prominent vessels and peristalsing bowel visualized, making it unable to accurately de termine presence or absence of ectopic. IMPRESSION: WE HAVE NOT IDENTIFIED INTRAUTERINE OR EXTRAUTERINE GESTATION. SHORT-TERM FOLLOW-UP +/- SERIAL BETA H CGS WOULD BE SUGGESTED.
[2019-03-01 13:25] VITALS: BP 115/78; PULSE 68; RESP 18; TEMP 97.8
== END 2019-03-01 13:25 | disposition home or self-care (01) ==
LOC: EC 10:45
DX: O02.1 Missed abortion (principal); Z3A.01 Less than 8 weeks gestation of pregnancy; Z88.8 Allergy status to other drugs, medicaments and biological substances; Z88.6 Allergy status to analgesic agent; Z91.010 Allergy to peanuts; Z91.018 Allergy to other foods
CPT/HCPCS: 76801; 76817; 81001; 99284

== ENCOUNTER 2019-04-03 09:12 | Emergency (ER) | payer OTHER ==
[2019-04-03 09:21] VITALS: RESP 18
[2019-04-03] MEDS ORDERED: IBUPROFEN 600 MG TAB PO STA (10:03)
[2019-04-03] MEDS ORDERED: traMADol 50 MG STARTER PACK 3 TAB BTL PO STA (10:29)
--- NOTE | 2019-04-03 10:29 | ED ---
Back Pain HPI - General Chief Complaint: Back Pain/Injury Stated Complaint: Back Pain Time Seen by Provider: 04/03/19 09:42 Source: patient, RN notes reviewed, old records reviewed Limitations: no limitations - History of Present Illness Initial Comments: Patient is a 38-year-old female presents emergency room today for evaluation for acute exacerbation of chronic back pain. Patient states that she woke up today complaining of this back discomfort. Patient states that she has no saddle anesthesias. She denies any fevers or chills. She reports that she's been out of her tramadol for chronic back pain. Patient states that her last prescription was filled in February. Patient states that she is planning to see any specialist in the upcoming month. Patient states that he is she has had no other symptoms at this time. - Related Data Previous Rx's Medication Instructions Recorded Ibuprofen [Motrin] 600 mg PO Q8HR PRN #30 tab 04/03/19 Allergies Allergy/AdvReac Type Severity Reaction Status Date / Time carisoprodol [From Soma] Allergy Unknown Verified 04/03/19 09:30 cyclobenzaprine Allergy Rash/Hives Verified 04/03/19 09:30 ketorolac [From Toradol] Allergy Unknown Verified 04/03/19 09:30 methocarbamol [From Robaxin] Allergy Rash/Hives Verified 04/03/19 09:30 naproxen [From Naprosyn] Allergy Nausea Verified 04/03/19 09:30 orphenadrine [From Norflex] Allergy Vomiting Verified 04/03/19 09:30 peanut Allergy Anaphylaxis Verified 04/03/19 09:30 muscle relaxers Allergy Unknown Uncoded 04/03/19 09:21 nuts AdvReac Swelling Uncoded 04/03/19 09:21 pork AdvReac Rash/Hives Uncoded 04/03/19 09:21 rice AdvReac Rash/Hives Uncoded 04/03/19 09:21 Review of Systems ROS Statement: Those systems with pertinent positive or pertinent negative responses have been documented in the HPI. ROS Other: All systems not noted in ROS Statement are negative. Past Medical History Past Medical History: Seizure Disorder Additional Past Medical History / Comment(s): migraines, back pain History of Any Multi-Drug Resistant Organisms: None Reported Past Surgical History: Cholecystectomy, Tonsillectomy Past Psychological History: No Psychological Hx Reported Smoking Status: Never smoker Past Alcohol Use History: None Reported Past Drug Use History: None Reported General Exam - General Exam Comments Initial Comments: This is a 38-year-old female, alert and oriented. No significant distress. General: Well appearing, well nourished, in no distress. Oriented x 3, normal mood and affect . Ambulating without difficulty. Skin: Good turgor, no rash, unusual bruising or prominent lesions Hair: Normal texture and distribution. HEENT: Head: Normocephalic, atraumatic, no visible or palpable masses, depressions, or scaring. Eyes: Visual acuity intact, conjunctiva clear, sclera non-icteric, EOM intact, PERRL. Ears: EACs clear, TMs translucent & cone of light visualized. hearing intact. Nose: No external lesions, mucosa non-inflamed, septum and turbinates normal Mouth: Mucous membranes moist, no mucosal lesions. Teeth/Gums: No obvious caries or periodontal disease. No gingival inflammation or significant resorption. Pharynx: Mucosa non-inflamed, no tonsillar hypertrophy or exudate Neck: Supple, without lesions, bruits, or adenopathy, thyroid non-enlarged and non-tender Heart: No cardiomegaly or thrills; regular rate and rhythm, no murmur or gallop Lungs: Clear to auscultation and percussion Abdomen: Bowel sounds normal, no tenderness, organomegaly, masses, or hernia Back: Spine normal without deformity . No thoracic and lumbar spine. No vertebral tenderness. Extremities: No amputations or deformities, cyanosis, edema or varicosities, peripheral pulses intact Musculoskeletal: Normal gait and station. No misalignment, asymmetry, crepitation, defects, tenderness, masses, effusions, decreased range of motion, instability, atrophy or abnormal strength or tone in the head, neck, spine, ribs, pelvis or extremities. Neurologic: CN 2-12 normal. Sensation to pain, touch, and proprioception normal. DTRs normal in upper and lower extremities. No pathologic reflexes. Psychiatric: Oriented X3, intact recent and remote memory, judgment and insight, normal mood and affect. Limitations: no limitations Course Vital Signs 04/03/19 09:19 Temperature 97.3 F L Pulse Rate 72 Respiratory 18 Rate Blood Pressure 109/80 O2 Sat by Pulse 98 Oximetry - Reevaluation(s) Reevaluation #1: 04/03/19 10:26 Have to report was ran, last prescription was filled on 5:15 for tramadol for 10 days. Patient has been out of pain medicine for 5 days. Medical Decision Making - Medical Decision Making 38 [place] and presents returns today with acute suspicion of chronic back pain. Denies any red flag symptoms. No recent falls or traumas. Discussed note it for imaging at this time. She was given 1 by mouth Motrin. They're in a mask support patient's last prescription for tramadol is on 03/19/2019. Patient will be given a starter pack at this time, discussed as Motrin for pain relief. All questions were answered return parameters were discussed. She can follow-up with her primary care doctor for further prescription for narcotics. Disposition Clinical Impression: Chronic back pain Disposition: HOME SELF-CARE Condition: Good Instructions (If sedation given, give patient instructions): Chronic Back Pain (DC) Additional Instructions: Follow-up with your primary care physician. Return to the emergency department if any alarming signs or symptoms occur. Prescriptions: Ibuprofen [Motrin] 600 mg PO Q8HR PRN #30 tab PRN Reason: Pain Is patient prescribed a controlled substance at d/c from ED?: No Referrals: None,Stated [Primary Care Provider] - 1-2 days Time of Disposition: 10:28
[2019-04-03 10:41] VITALS: BP 115/80; PULSE 67; TEMP 98
== END 2019-04-03 10:37 | disposition home or self-care (01) ==
LOC: EC 09:12
DX: G89.29 Other chronic pain (principal); M54.9 Dorsalgia, unspecified; Z88.6 Allergy status to analgesic agent; Z88.8 Allergy status to other drugs, medicaments and biological substances; Z91.010 Allergy to peanuts; Z91.018 Allergy to other foods
CPT/HCPCS: 99283

== ENCOUNTER 2019-07-25 10:05 | Emergency (ER) | payer OTHER ==
[2019-07-25 10:13] VITALS: TEMP 98.2
[2019-07-25] MEDS ORDERED: traMADol 50 MG STARTER PACK 3 TAB BTL PO STA (11:09)
--- NOTE | 2019-07-25 11:43 | ED ---
Back Pain HPI - General Chief Complaint: Back Pain/Injury Stated Complaint: Back pain Time Seen by Provider: 07/25/19 10:18 Source: patient, RN notes reviewed Limitations: no limitations - History of Present Illness Initial Comments: 38-year-old female presented for low back pain. Patient has history of chronic back pain states is worsened. Patient denies any trauma. She has had recent MRIs that showed disc and vertebral issues. Patient no bowel bladder incontinence or retention. Denies any saddle anesthesias no dysuria no abdominal pain. Patient states that she is on tramadol but states that she has not had a prescription lately. Patient denies any other complaints. - Related Data Previous Rx's Medication Instructions Recorded Ibuprofen [Motrin] 600 mg PO Q8HR PRN #30 tab 07/25/19 Allergies Allergy/AdvReac Type Severity Reaction Status Date / Time carisoprodol [From Soma] Allergy Unknown Verified 07/25/19 10:19 cyclobenzaprine Allergy Rash/Hives Verified 07/25/19 10:19 methocarbamol [From Robaxin] Allergy Rash/Hives Verified 07/25/19 10:19 naproxen [From Naprosyn] Allergy Nausea Verified 07/25/19 10:19 orphenadrine [From Norflex] Allergy Vomiting Verified 07/25/19 10:19 peanut Allergy Anaphylaxis Verified 07/25/19 10:19 Pork/Porcine Containing Allergy Rash/Hives Verified 07/25/19 10:19 Products [Pork] rice Allergy Rash/Hives Verified 07/25/19 10:19 tree nut [Nut] Allergy Swelling Verified 07/25/19 10:19 muscle relaxers Allergy Unknown Uncoded 07/25/19 10:19 Review of Systems ROS Statement: Those systems with pertinent positive or pertinent negative responses have been documented in the HPI. ROS Other: All systems not noted in ROS Statement are negative. Past Medical History Past Medical History: Seizure Disorder Additional Past Medical History / Comment(s): cyst on kidney, migraines, back pain History of Any Multi-Drug Resistant Organisms: None Reported Past Surgical History: Cholecystectomy, Tonsillectomy Past Psychological History: No Psychological Hx Reported Smoking Status: Never smoker Past Alcohol Use History: None Reported Past Drug Use History: None Reported General Exam Limitations: no limitations General appearance: alert, in no apparent distress Head exam: Present: atraumatic, normocephalic, normal inspection Neck exam: Present: normal inspection. Absent: tenderness, meningismus, lymphadenopathy Respiratory exam: Present: normal lung sounds bilaterally Cardiovascular Exam: Present: regular rate, normal rhythm, normal heart sounds. Absent: systolic murmur, diastolic murmur, rubs, gallop, clicks GI/Abdominal exam: Present: soft, normal bowel sounds. Absent: distended, tenderness, guarding, rebound, rigid Back exam: Present: normal inspection, full ROM, tenderness, muscle spasm, paraspinal tenderness. Absent: vertebral tenderness Skin exam: Present: warm, dry, intact, normal color. Absent: rash Course Vital Signs 07/25/19 10:10 Temperature 98.2 F Pulse Rate 66 Respiratory 18 Rate Blood Pressure 125/73 O2 Sat by Pulse 98 Oximetry Medical Decision Making - Medical Decision Making 38-year-old female presented for low back pain. This is acute exacerbation of chronic back pain. Patient is neurologically intact with no red flag symptoms. Patient will be discharged return parameters were discussed. Disposition Clinical Impression: Acute exacerbation of chronic low back pain Disposition: HOME SELF-CARE Condition: Stable Instructions (If sedation given, give patient instructions): Acute Low Back Pain (ED) Additional Instructions: Please return to the Emergency Department if symptoms worsen or any other concerns. Prescriptions: Ibuprofen [Motrin] 600 mg PO Q8HR PRN #30 tab PRN Reason: Pain Is patient prescribed a controlled substance at d/c from ED?: No Referrals: None,Stated [Primary Care Provider] - 1-2 days Time of Disposition: 11:09
[2019-07-25 12:00] VITALS: BP 121/79; PULSE 62; RESP 16
== END 2019-07-25 12:03 | disposition home or self-care (01) ==
LOC: EC 10:05
DX: G89.29 Other chronic pain (principal); M54.5 Low back pain; Z91.010 Allergy to peanuts; Z88.8 Allergy status to other drugs, medicaments and biological substances; Z88.6 Allergy status to analgesic agent; Z91.018 Allergy to other foods
CPT/HCPCS: 99283

== ENCOUNTER 2019-08-15 21:35 | Emergency (ER) | payer OTHER ==
[2019-08-15 21:43] VITALS: BP 133/74; PULSE 70; RESP 20; TEMP 98.7
[2019-08-15] MEDS ORDERED: IBUPROFEN 600 MG STARTER PACK 4 TAB BTL PO STA (22:07)
[2019-08-15] MEDS ORDERED: traMADol 50 MG STARTER PACK 3 TAB BTL PO STA (22:08)
--- NOTE | 2019-08-15 22:20 | ED ---
Headache HPI - General Chief Complaint: Headache Stated Complaint: Migraine, back pain Time Seen by Provider: 08/15/19 21:52 Mode of arrival: ambulatory Limitations: no limitations - History of Present Illness Initial Comments: 38 year-old female patient with past medical history significant for migraine headaches and chronic back pain presents to the emergency department today reporting headache and back pain. Patient states she has generalized headache. Denies blurred or double vision. Denies dizziness, weakness, nausea, or vomiting. Denies light or sound sensitivity. Denies this being the worst headache of her life. Patient is also reporting low back pain. States this is consistent with her usual back pain. Denies any radiation down the legs. Denies any saddle anesthesia or numbness or tingling to the lower extremities. Denies loss of bowel or bladder control. 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 States she also has bulging disks in her back. Patient states she does have an appointment with neurology on Sunday and with pain management next week. Patient comes in requesting oral medications only. She declines IV or IM medications. Declines testing. Patient denies any recent rash, fever, chills, shortness breath, chest pain, abdominal pain, diarrhea, constipation, back pain, hematuria, dysuria, urinary urgency, urinary frequency, or any other complaints. - Related Data Previous Rx's Medication Instructions Recorded Ibuprofen [Motrin] 600 mg PO Q8HR PRN #30 tab 07/25/19 Allergies Allergy/AdvReac Type Severity Reaction Status Date / Time carisoprodol [From Soma] Allergy Unknown Verified 08/15/19 21:43 cyclobenzaprine Allergy Rash/Hives Verified 08/15/19 21:43 methocarbamol [From Robaxin] Allergy Rash/Hives Verified 08/15/19 21:43 naproxen [From Naprosyn] Allergy Nausea Verified 08/15/19 21:43 orphenadrine [From Norflex] Allergy Vomiting Verified 08/15/19 21:43 peanut Allergy Anaphylaxis Verified 08/15/19 21:43 Pork/Porcine Containing Allergy Rash/Hives Verified 08/15/19 21:43 Products [Pork] rice Allergy Rash/Hives Verified 08/15/19 21:43 tree nut [Nut] Allergy Swelling Verified 08/15/19 21:43 muscle relaxers Allergy Unknown Uncoded 08/15/19 21:43 Review of Systems ROS Statement: Those systems with pertinent positive or pertinent negative responses have been documented in the HPI. ROS Other: All systems not noted in ROS Statement are negative. Past Medical History Past Medical History: Seizure Disorder Additional Past Medical History / Comment(s): cyst on kidney, migraines, back pain History of Any Multi-Drug Resistant Organisms: None Reported Past Surgical History: Cholecystectomy, Tonsillectomy Past Psychological History: No Psychological Hx Reported Smoking Status: Never smoker Past Alcohol Use History: None Reported Past Drug Use History: None Reported General Exam Limitations: no limitations General appearance: alert, in no apparent distress, other (Physical well- developed, well-nourished adult female patient in no acute distress. Vital signs upon presentation are temperature 98.7F, pulse 70, respirations 20, blood pressure 133/74, pulse ox 99% on room air.) Eye exam: Present: normal appearance, PERRL, EOMI. Absent: scleral icterus, conjunctival injection, nystagmus, periorbital swelling ENT exam: Present: normal exam, normal oropharynx, mucous membranes moist Respiratory exam: Present: normal lung sounds bilaterally. Absent: respiratory distress, wheezes, rales, rhonchi, stridor Cardiovascular Exam: Present: regular rate, normal rhythm, normal heart sounds. Absent: systolic murmur, diastolic murmur, rubs, gallop, clicks GI/Abdominal exam: Present: soft, normal bowel sounds. Absent: distended, tenderness, guarding, rebound, rigid Neurological exam: Present: alert, oriented X3, CN II-XII intact, other (Strength in all 4 extremities is 5/5.) Psychiatric exam: Present: normal affect, normal mood Skin exam: Present: warm, dry, intact, normal color. Absent: rash Course Vital Signs 08/15/19 21:41 Temperature 98.7 F Pulse Rate 70 Respiratory 20 Rate Blood Pressure 133/74 O2 Sat by Pulse 99 Oximetry Medical Decision Making - Medical Decision Making 38 year-old female patient presents to the emergency department today requesting pain medication. Patient has chronic migraines and back pain. She is cur rently being evaluated by neurology and will be evaluated by pain management. She is declining testing. She'll be given starter packs or ibuprofen and tramadol. She is instructed to follow-up on Sunday as she has planned. Return parameters discussed in detail. She verbalizes understanding and agrees with this plan. Disposition Clinical Impression: Headache Disposition: HOME SELF-CARE Condition: Good Instructions (If sedation given, give patient instructions): Acute Headache (ED) Additional Instructions: Increase fluids. Rest. Follow up with the primary care physician. Follow-up with the primary care physician for recheck in 1-2 days. Return to the emergency department immediately for any new, worsening, or concerning symptoms. Is patient prescribed a controlled substance at d/c from ED?: No Referrals: None,Stated [Primary Care Provider] - 1-2 days Time of Disposition: 22:21
== END 2019-08-15 22:39 | disposition home or self-care (01) ==
LOC: EC 21:35
DX: R51 Headache (principal); M54.5 Low back pain; Z88.6 Allergy status to analgesic agent; Z88.8 Allergy status to other drugs, medicaments and biological substances; Z91.010 Allergy to peanuts; Z91.018 Allergy to other foods; Z86.69 Personal history of other diseases of the nervous system and sense organs; Z53.20 Procedure and treatment not carried out because of patient's decision for unspecified reasons
CPT/HCPCS: 99283

== ENCOUNTER 2019-08-22 22:25 | Emergency (ER) | payer OTHER ==
--- NOTE | 2019-08-22 23:32 | ED ---
Headache HPI - General Chief Complaint: Headache Stated Complaint: H/A and Back pain Time Seen by Provider: 08/22/19 23:09 Mode of arrival: ambulatory Limitations: no limitations - History of Present Illness Initial Comments: 38 female presenting for headache, chronic back pain. Patient states that she was diagnosed with a brain tumor 10 years ago. Patient states she has had this monitored with a recent MRI on 08/14/2019. Patient states there is no significant change. Patient states that she has chronic migraines from this tumor. She states the come and go. Patient states that she's been out of her tramadol she states she has not been able to control the headaches. Patient states that she usually takes it 100 of ibuprofen and a tramadol and this takes the headache away. Patient denies any changes in the headache characteristic denies any sudden onset. Patient denies any nausea vomiting light sensitivity since he was sound neck pain visual changes diplopia weakness of the upper or lower extremities sensation deficits paresthesias changes or difficulty articulating speech. Patient states that she is not concerned about it and is more concerned that she is out of her tramadol which usually is used to treat her chronic migraines. 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 Patient states this causes chronic low back pain. Patient denies A changes but states that the tramadol also helped do with her daily pain. Patient states she is supposed to follow-up at the pain clinic. Patient states she has a upcoming neurosurgical appointment. Patient denies a fever or IV drug use as a loss of bowel bladder control recent trauma or falls. Denies any new back pain denies history of cancer. Remaining review of system negative. Upon arrival patient appears well signs of acute distress - Related Data Allergies Allergy/AdvReac Type Severity Reaction Status Date / Time carisoprodol [From Soma] Allergy Unknown Verified 08/15/19 21:43 cyclobenzaprine Allergy Rash/Hives Verified 08/15/19 21:43 methocarbamol [From Robaxin] Allergy Rash/Hives Verified 08/15/19 21:43 naproxen [From Naprosyn] Allergy Nausea Verified 08/15/19 21:43 orphenadrine [From Norflex] Allergy Vomiting Verified 08/15/19 21:43 peanut Allergy Anaphylaxis Verified 08/15/19 21:43 Pork/Porcine Containing Allergy Rash/Hives Verified 08/15/19 21:43 Products [Pork] rice Allergy Rash/Hives Verified 08/15/19 21:43 tree nut [Nut] Allergy Swelling Verified 08/15/19 21:43 muscle relaxers Allergy Unknown Uncoded 08/15/19 21:43 Review of Systems ROS Statement: Those systems with pertinent positive or pertinent negative responses have been documented in the HPI. ROS Other: All systems not noted in ROS Statement are negative. Past Medical History Past Medical History: Seizure Disorder Additional Past Medical History / Comment(s): cyst on kidney, migraines, back pain History of Any Multi-Drug Resistant Organisms: None Reported Past Surgical History: Cholecystectomy, Tonsillectomy Past Psychological History: No Psychological Hx Reported Smoking Status: Former smoker Past Alcohol Use History: None Reported Past Drug Use History: None Reported General Exam - General Exam Comments Initial Comments: General: The patient is awake and alert, in no distress, and does not appear acutely ill. Eye: +3 mm pupils are equal, round and reactive to light, extra-ocular movements are intact. No nystagmus. There is normal conjunctiva bilaterally. No signs of icterus. Ears, nose, mouth and throat: There are moist mucous membranes and no oral lesions. Neck: The neck is supple, there is no tenderness or JVD. Cardiovascular: There is a regular rate and rhythm. No murmur, rub or gallop is appreciated. Respiratory: Lungs are clear to auscultation, respirations are non-labored, breath sounds are equal. No wheezes, stridor, rales, or rhonchi. Musculoskeletal: Normal inspection of the thoracic and lumbar spine. There is no midline tenderness to patient thoracic or lumbar spine. Normal ROM, no tenderness. Strength 5/5. Sensation intact. Pulses equal bilaterally 2+. Neurological: A&O x 3. CN II-XII intact, memory intact to immediately, intermediate and long-term recall. Able to follow simple verbal. Able to name a common object.. High quality, labial (pa) and lingual (la) speech. Low quality posterior pharynx/larynx (ga) voice sounds. Able to express general knowledge (days in a week). No hemineglect or inattention noted. Finger agnosia (-) and spatially oriented. Light touch sensation present over the face, chest, abdom en, back, UE bilaterally, and LE bilaterally. No visible bulk atrophy, hypertrophy, fasciculations, or myoclonus of the UE or LE b/l. Full PROM in UE and LE b/l. Bilateral muscle strength 5/5 for the following muscles: deltoid, biceps, triceps, brachioradialis, wrist extensors/flexor, hip flexor, hip abductors/adductors, hamstrings, quadriceps, feet dorsiflexors/plantar flexors. Finger to nose, finger to the examiners finger, and heel to flowers coordinated and accurate b/l. Coordinated and even demonstration of hand flip, finger to thumb, and toe tap b/l. Gait is coordinated and even in stride with tandem.. Maintains balance with monopedal stance. (-) Romberg. (-) pronator drift. No nuchal rigidity. Skin: Skin is warm and dry and no rashes or lesions are noted. Psychiatric: Cooperative, appropriate mood & affect, normal judgment. Limitations: no limitations Course Vital Signs 08/22/19 08/23/19 22:29 01:19 Temperature 98.2 F 98.0 F Pulse Rate 72 75 Respiratory 20 18 Rate Blood Pressure 128/79 O2 Sat by Pulse 99 99 Oximetry Medical Decision Making - Medical Decision Making 38 or female presented for chronic migraines. Patient states she has had a headache for the past 2 days denies any sudden onset. Patient denies this being the worst headache of her life. Patient states is usually controlled with tramadol which she is out of. Patient is no focal neurological deficits. P atient appears well concerning history. patient has an upcoming neurosurgical appointment. patient denies any changes and chronic back pain. she is provided pain medications the emergency department pain alleviated. patient prescribed tramadol starter pack. risk involved in importance of primary care follow-up were discussed. patient is to follow-up with neurosurgery as scheduled. otherwise at this time feel patient stay for discharge discussed case metallic provider who is agreeable patient discharged. will Disposition Clinical Impression: Chronic migraine, Chronic back pain, Headache Disposition: HOME SELF-CARE Condition: Good Instructions (If sedation given, give patient instructions): Acute Headache (ED) Additional Instructions: Please use medication as discussed. Please follow-up with family doctor in the next 2 days, neurologist as discussed. Please return to emergency room if the symptoms increase or worsen or for any other concerns. Is patient prescribed a controlled substance at d/c from ED?: No Referrals: None,Stated [Primary Care Provider] - 1-2 days Time of Disposition: 01:05
[2019-08-23] MEDS ORDERED: KETOROLAC 60 MG/2 ML VIAL IM STA (00:23)
[2019-08-23] MEDS ORDERED: traMADol 50 MG STARTER PACK 3 TAB BTL PO STA (00:24)
[2019-08-23] MEDS ORDERED: ONDANSETRON ODT 4 MG TAB PO STA (00:24)
[2019-08-23 01:21] VITALS: BP 128/79; PULSE 75; RESP 18; TEMP 98
== END 2019-08-23 01:20 | disposition home or self-care (01) ==
LOC: EC 22:25
DX: G43.709 Chronic migraine without aura, not intractable, without status migrainosus (principal); G89.29 Other chronic pain; M54.9 Dorsalgia, unspecified; Z88.8 Allergy status to other drugs, medicaments and biological substances; Z88.6 Allergy status to analgesic agent; Z91.010 Allergy to peanuts; Z91.018 Allergy to other foods; Z87.891 Personal history of nicotine dependence
CPT/HCPCS: 99283 ×2; 96372 ×2; J1885

== ENCOUNTER 2019-09-14 09:41 | Emergency (ER) | payer OTHER ==
[2019-09-14 09:58] VITALS: BP 121/87; PULSE 67; RESP 18; TEMP 98.3
[2019-09-14] MEDS ORDERED: traMADol 50 MG STARTER PACK 3 TAB BTL PO STA (10:13)
--- NOTE | 2019-09-14 10:13 | ED ---
Back Pain HPI - General Chief Complaint: Back Pain/Injury Stated Complaint: sharp back pains radiating up and down Time Seen by Provider: 09/14/19 09:59 Source: patient Limitations: no limitations - History of Present Illness Initial Comments: Patient is a 38-year-old female presenting to the emergency Department with complaints of back pain that has been increasing over the last 2 days. Patient has long-standing history of chronic back pain and also brings in a copy of her lumbar back MRI that was done in July. Patient states she has an appointment with a neurologist coming up in 2 weeks. Patient states she did not do any trauma or injuries to her back but the pain meds and been increasing the last 2 days. Patient states the pain starts in her lumbar area and radiates up her spine. Patient denies any fever, chills, nausea, vomiting, abdominal pain, saddle paresthesias, trouble with urination. She has no other complaints at this time. Upon arrival to the ER, vital signs are stable. - Related Data Allergies Allergy/AdvReac Type Severity Reaction Status Date / Time carisoprodol [From Soma] Allergy Unknown Verified 09/14/19 09:56 cyclobenzaprine Allergy Rash/Hives Verified 09/14/19 09:56 methocarbamol [From Robaxin] Allergy Rash/Hives Verified 09/14/19 09:56 naproxen [From Naprosyn] Allergy Nausea Verified 09/14/19 09:56 orphenadrine [From Norflex] Allergy Vomiting Verified 09/14/19 09:56 peanut Allergy Anaphylaxis Verified 09/14/19 09:56 Pork/Porcine Containing Allergy Rash/Hives Verified 09/14/19 09:56 Products [Pork] rice Allergy Rash/Hives Verified 09/14/19 09:56 tree nut [Nut] Allergy Swelling Verified 09/14/19 09:56 muscle relaxers Allergy Unknown Uncoded 09/14/19 09:56 Review of Systems ROS Statement: Those systems with pertinent positive or pertinent negative responses have been documented in the HPI. ROS Other: All systems not noted in ROS Statement are negative. Past Medical History Past Medical History: Seizure Disorder Additional Past Medical History / Comment(s): cyst on kidney, migraines, back pain History of Any Multi-Drug Resistant Organisms: None Reported Past Surgical History: Cholecystectomy, Tonsillectomy Past Psychological History: No Psychological Hx Reported Smoking Status: Former smoker Past Alcohol Use History: None Reported Past Drug Use History: None Reported General Exam - General Exam Comments Initial Comments: GENERAL: Well-appearing, well-nourished and in no acute distress. HEAD: Atraumatic, normocephalic. EYES: Pupils equal round and reactive to light, extraocular movements intact, sclera anicteric, conjunctiva are normal. ENT: Moist mucous membranes. NECK: Normal range of motion, supple without lymphadenopathy or JVD. LUNGS: Breath sounds clear to auscultation bilaterally and equal. No wheezes rales or rhonchi. HEART: Regular rate and rhythm without murmurs, rubs or gallops. ABDOMEN: Soft, nontender, normoactive bowel sounds. No guarding, no rebound. No masses appreciated. EXTREMITIES: Patient has 5 out of 5 strength in the lower extremities bilaterally. Sensation equal and bilateral. Patient is sitting up in the gurney and moving around without pain. Patient has full trunk range of motion. No pitting or edema. No clubbing or cyanosis. NEUROLOGICAL: Cranial nerves II through XII grossly intact. Normal speech, normal gait. PSYCH: Normal mood, normal affect. SKIN: Warm, Dry, normal turgor, no rashes or lesions noted. Limitations: no limitations Course Vital Signs 09/14/19 09:56 Temperature 98.3 F Pulse Rate 67 Respiratory 18 Rate Blood Pressure 121/87 O2 Sat by Pulse 100 Oximetry Medical Decision Making - Medical Decision Making Patient is a 38-year-old female presenting with back pain 2 days. Patient d enies any injuries or trauma. Patient is well-known to the ER for back pain. Patient's exam is unremarkable, no red flag symptoms. Patient will be given prescription for Motrin. She has an appointment with a neurologist and pain management in 2 weeks. Patient will also be given a starter pack for tramadol. She is in agreement with this plan of care. Patient is stable for discharge at this time. Return parameters were discussed with the patient she verbalized understanding. Disposition Clinical Impression: Chronic back pain Disposition: HOME SELF-CARE Condition: Stable Instructions (If sedation given, give patient instructions): Acute Low Back Pain (ED) Additional Instructions: Please return to the Emergency Department if symptoms worsen or any other concerns. Follow-up with neurologist and pain management as discussed in 2 weeks. Is patient prescribed a controlled substance at d/c from ED?: No Referrals: None,Stated [Primary Care Provider] - 1-2 days
== END 2019-09-14 10:34 | disposition home or self-care (01) ==
LOC: EC 09:41
DX: G89.29 Other chronic pain (principal); M54.9 Dorsalgia, unspecified; Z87.891 Personal history of nicotine dependence; Z88.6 Allergy status to analgesic agent; Z88.8 Allergy status to other drugs, medicaments and biological substances; Z91.010 Allergy to peanuts; Z91.018 Allergy to other foods; Z91.048 Other nonmedicinal substance allergy status
CPT/HCPCS: 99283

== ENCOUNTER 2019-09-19 00:35 | Emergency (ER) | payer OTHER ==
[2019-09-19 00:41] VITALS: BP 120/81; PULSE 76; RESP 16; TEMP 97.8
[2019-09-19] MEDS ORDERED: traMADol 50 MG STARTER PACK 3 TAB BTL PO STA (01:13)
[2019-09-19] MEDS ORDERED: KETOROLAC 30 MG/ML 1 ML VIAL IM STA (01:13)
--- NOTE | 2019-09-19 01:17 | ED ---
Back Pain HPI - General Chief Complaint: Back Pain/Injury Stated Complaint: Back Pain Source: patient Limitations: no limitations - History of Present Illness Initial Comments: 38 year-old female patient presents to the emergency department today for evaluation of left low back pain with radiation down the left buttock. Patient states she does have a history of sciatica and this feels similar. Patient is requesting tramadol. She states that she did take Tylenol for pain at home which did not help. Patient denies any numbness or tingling to the lower cavities. Denies any saddle anesthesia or loss of bowel or bladder control. Patient denies any injury to the back. Patient denies any recent rash, fever, chills, shortness breath, chest pain, abdominal pain, nausea, vomiting, diarrhea, constipation, dizziness, weakness, hematuria, dysuria, urinary urgency, urinary frequency, headache, visual changes, or any other complaints. - Related Data Allergies Allergy/AdvReac Type Severity Reaction Status Date / Time carisoprodol [From Soma] Allergy Unknown Verified 09/19/19 00:40 cyclobenzaprine Allergy Rash/Hives Verified 09/19/19 00:40 methocarbamol [From Robaxin] Allergy Rash/Hives Verified 09/19/19 00:40 naproxen [From Naprosyn] Allergy Nausea Verified 09/19/19 00:40 orphenadrine [From Norflex] Allergy Vomiting Verified 09/19/19 00:40 peanut Allergy Anaphylaxis Verified 09/19/19 00:40 Pork/Porcine Containing Allergy Rash/Hives Verified 09/19/19 00:40 Products [Pork] rice Allergy Rash/Hives Verified 09/19/19 00:40 tree nut [Nut] Allergy Swelling Verified 09/19/19 00:40 muscle relaxers Allergy Unknown Uncoded 09/19/19 00:40 Review of Systems ROS Statement: Those systems with pertinent positive or pertinent negative responses have been documented in the HPI. ROS Other: All systems not noted in ROS Statement are negative. Past Medical History Past Medical History: Seizure Disorder Additional Past Medical History / Comment(s): cyst on kidney, migraines, back p ain, brain tumors, History of Any Multi-Drug Resistant Organisms: None Reported Past Surgical History: Cholecystectomy, Tonsillectomy Past Psychological History: No Psychological Hx Reported Smoking Status: Former smoker Past Alcohol Use History: None Reported Past Drug Use History: None Reported General Exam Limitations: no limitations General appearance: alert, in no apparent distress, other (This is a well- developed, well-nourished adult female patient in no acute distress. Vital signs upon presentation are temperature 97.8F, pulse 76, respirations 16, blood pressure 120/81, pulse ox 100% on room air.) Eye exam: Present: normal appearance, PERRL, EOMI. Absent: scleral icterus, conjunctival injection, periorbital swelling ENT exam: Present: normal exam, normal oropharynx, mucous membranes moist Respiratory exam: Present: normal lung sounds bilaterally. Absent: respiratory distress, wheezes, rales, rhonchi, stridor Cardiovascular Exam: Present: regular rate, normal rhythm, normal heart sounds. Absent: systolic murmur, diastolic murmur, rubs, gallop, clicks GI/Abdominal exam: Present: soft, normal bowel sounds. Absent: distended, tenderness, guarding, rebound, rigid Extremities exam: Present: normal inspection, full ROM, normal capillary refill, other (Skin to the lower trauma is pink, warm, dry. Cap refills less than 3 seconds. Post tibial pulses are 2+ and equal bilaterally.). Absent: tenderness, pedal edema, joint swelling, calf tenderness Back exam: Present: normal inspection, muscle spasm (Left paraspinal muscles). Absent: vertebral tenderness Neurological exam: Present: alert, oriented X3, CN II-XII intact Psychiatric exam: Present: normal affect, normal mood Skin exam: Present: warm, dry, intact, normal color. Absent: rash Course Vital Signs 09/19/19 00:38 Temperature 97.8 F Pulse Rate 76 Respiratory 16 Rate Blood Pressure 120/81 O2 Sat by Pulse 100 Oximetry Medical Decision Making - Medical Decision Making 38 year-old female patient presents to the emergency department today for evaluation of left-sided back pain with radiation down the left buttock. Patient has history of sciatica states this feels similar. Denies any new symptoms. Denies any concerning symptoms for cauda equina. She'll be given starter pack of tramadol discharged home. She is instructed to follow-up with her primary care physician for recheck in 1-2 days. Return parameters were di scussed in detail. She verbalizes understanding and agrees with this plan. Disposition Clinical Impression: Sciatica, Muscle spasm Disposition: HOME SELF-CARE Condition: Good Instructions (If sedation given, give patient instructions): Sciatica (ED), Lower Back Exercises (ED) Additional Instructions: Apply warm moist heat to the low back. Perform gentle range of motion exercises. Take medication sparingly for pain control. Follow-up with your [facility] physician for recheck in 1-2 days. Follow-up with pain management as you have planned. Return for any other new, worsening, or concerning symptoms. Is patient prescribed a controlled substance at d/c from ED?: No Referrals: None,Stated [Primary Care Provider] - 1-2 days Time of Disposition: 01:17
== END 2019-09-19 01:38 | disposition home or self-care (01) ==
LOC: EC 00:35
DX: M62.838 Other muscle spasm (principal); M54.40 Lumbago with sciatica, unspecified side; Z53.20 Procedure and treatment not carried out because of patient's decision for unspecified reasons; Z87.891 Personal history of nicotine dependence; Z88.6 Allergy status to analgesic agent; Z88.8 Allergy status to other drugs, medicaments and biological substances; Z91.018 Allergy to other foods
CPT/HCPCS: 99283

== ENCOUNTER 2019-10-07 15:31 | Emergency (ER) | payer OTHER ==
[2019-10-07 15:36] VITALS: BP 111/75; PULSE 68; RESP 18; TEMP 97.9
--- NOTE | 2019-10-07 15:57 | ED ---
General Adult HPI - General Chief complaint: Back Pain/Injury Stated complaint: back problems Time Seen by Provider: 10/07/19 15:42 Source: patient, RN notes reviewed Mode of arrival: ambulatory Limitations: no limitations - History of Present Illness Initial comments: 38 year old female presents to the emergency department for chronic back pain. Patient states she is supposed to see pain management in November but has not been able to see them. Patient states her primary care doctor will no longer see her. Patient denies any bladder or bowel changes. Denies any numbness or tingling in the lower extremities. Denies radiating pain to the lower extremities. Denies fevers or chills. Denies any changes today from her chronic back pain. States she is here for a tramadol starter pack since she is not supposed to get prescriptions as she is trying to get in pain management.Patient has no other complaints at this time including shortness of b reath, chest pain, abdominal pain, nausea or vomiting, headache, or visual changes. - Related Data Allergies Allergy/AdvReac Type Severity Reaction Status Date / Time carisoprodol [From Soma] Allergy Unknown Verified 10/07/19 15:36 cyclobenzaprine Allergy Rash/Hives Verified 10/07/19 15:36 methocarbamol [From Robaxin] Allergy Rash/Hives Verified 10/07/19 15:36 naproxen [From Naprosyn] Allergy Nausea Verified 10/07/19 15:36 orphenadrine [From Norflex] Allergy Vomiting Verified 10/07/19 15:36 peanut Allergy Anaphylaxis Verified 10/07/19 15:36 Pork/Porcine Containing Allergy Rash/Hives Verified 10/07/19 15:36 Products [Pork] rice Allergy Rash/Hives Verified 10/07/19 15:36 tree nut [Nut] Allergy Swelling Verified 10/07/19 15:36 muscle relaxers Allergy Unknown Uncoded 10/07/19 15:36 Review of Systems ROS Statement: Those systems with pertinent positive or pertinent negative responses have been documented in the HPI. ROS Other: All systems not noted in ROS Statement are negative. Past Medical History Past Medical History: Seizure Disorder Additional Past Medical History / Comment(s): cyst on kidney, migraines, back pain, brain tumors, History of Any Multi-Drug Resistant Organisms: None Reported Past Surgical History: Cholecystectomy, Tonsillectomy Past Psychological History: No Psychological Hx Reported Smoking Status: Former smoker Past Alcohol Use History: None Reported Past Drug Use History: None Reported General Exam Limitations: no limitations General appearance: alert, in no apparent distress Head exam: Present: atraumatic, normocephalic, normal inspection Eye exam: Present: normal appearance ENT exam: Present: normal exam, mucous membranes moist Neck exam: Present: normal inspection, full ROM. Absent: tenderness, meningismus, lymphadenopathy Respiratory exam: Absent: rhonchi, stridor Course Vital Signs 10/07/19 15:34 Temperature 97.9 F Pulse Rate 68 Respiratory 18 Rate Blood Pressure 111/75 O2 Sat by Pulse 99 Oximetry Medical Decision Making - Medical Decision Making Patient presents for chronic back pain. Patient presents with several MRI reports. I did review these and patient has a disc bulge at L5-S1. Patient denies any changes in pain today. Denies any red flag symptoms. Patient is ambulatory in the emergency Department. Patient states she is here relief for a tramadol starter pack. Patient has had 5 tramadol starter packs in the past 3 months from the emergency department. States she does not like the Toradol shot. States she is ALLERGIC to all muscle relaxers. Patient states she knows she is not supposed to prescriptions for narcotics as she is getting into pain management so that's why she wants a starter pack. I discussed with patient that I will not be able to give her a starter pack today but that I would go review her previous reports as well as ALLERGIES and treat her pain today with Toradol and possibly another medication. While I was reviewing her chart patient eloped from the emergency department without telling anyone. I was not able to finish my examination or HPI. Patient did not receive any pain medication here in the emergency department. Patient eloped, will be discharged as AMA. Disposition Clinical Impression: Drug-seeking behavior, Chronic back pain Disposition: Left Against Medical Advice Condition: Fair Is patient prescribed a controlled substance at d/c from ED?: No Referrals: None,Stated [Primary Care Provider] - 1-2 days Time of Disposition: 16:06
== END 2019-10-07 16:16 | disposition left against medical advice (07) ==
LOC: EC 15:31
DX: G89.29 Other chronic pain (principal); M54.9 Dorsalgia, unspecified; Z76.5 Malingerer [conscious simulation]; M51.27 Other intervertebral disc displacement, lumbosacral region; R06.1 Stridor; Z88.8 Allergy status to other drugs, medicaments and biological substances; Z91.018 Allergy to other foods; Z91.010 Allergy to peanuts; Z88.6 Allergy status to analgesic agent; Z87.891 Personal history of nicotine dependence
CPT/HCPCS: 99282

== ENCOUNTER 2019-12-07 12:59 | Emergency (ER) | payer OTHER ==
[2019-12-07 13:03] VITALS: BP 124/82; PULSE 69; RESP 16; TEMP 97.9
[2019-12-07] MEDS ORDERED: KETOROLAC 30 MG/ML 1 ML VIAL IM STA (14:11)
[2019-12-07] MEDS ORDERED: traMADol 50 MG STARTER PACK 3 TAB BTL PO STA (14:11)
--- NOTE | 2019-12-07 14:18 | XR ---
EXAMINATION TYPE: XR thoracic spine 2V DATE OF EXAM: 12/07/2019 CLINICAL HISTORY: Mid back pain. No stated injury. TECHNIQUE: Frontal, lateral, and swimmer's view of thoracic spine are obtained. COMPARISON: None. FINDINGS: Thoracic spine show satisfactory alignment without evidence of acute fracture or dislocatio n. Vertebral body heights and disc space heights are preserved. Visualized ribs are unremarkable. Cholecystectomy clips are present. IMPRESSION: No acute fracture or malalignment is seen in the thoracic spine.
--- NOTE | 2019-12-07 14:27 | ED ---
Back Pain HPI - General Chief Complaint: Back Pain/Injury Stated Complaint: back pain Time Seen by Provider: 12/07/19 13:43 Source: patient Limitations: no limitations - History of Present Illness Initial Comments: Patient is a 38-year-old female presenting to the emergency department with a chief complaint of back pain. Patient reports bilateral, paraspinal thoracic pain that is chronically there but appears to be exacerbated after she has not been taking her pain medication. Patient states she was recently discharged from her primary care office for missing too many appointment. Patient reports she typically takes Ultram every 4 hours along with ibuprofen. She states that she could not have a refill because she was discharged from the [facility] practice. Patient states she heard is an appointment scheduled to establish a new relationship with her family care physician. Patient reports her next appointment is in 1 month. Patient is asking for pain medication refill. No chest pain, no dental pain, no saddle anesthesia, no urinary bowel incontinence. Pain is exactly the same as old. - Related Data Previous Rx's Medication Instructions Recorded Ibuprofen [Motrin] 600 mg PO Q8HR PRN #30 tab 12/07/19 traMADol HCl [Ultram] 50 mg PO Q6HR PRN 3 Days #12 tab 12/07/19 Allergies Allergy/AdvReac Type Severity Reaction Status Date / Time carisoprodol [From Soma] Allergy Unknown Verified 12/07/19 13:00 cyclobenzaprine Allergy Rash/Hives Verified 12/07/19 13:00 methocarbamol [From Robaxin] Allergy Rash/Hives Verified 12/07/19 13:00 naproxen [From Naprosyn] Allergy Nausea Verified 12/07/19 13:00 orphenadrine [From Norflex] Allergy Vomiting Verified 12/07/19 13:00 peanut Allergy Anaphylaxis Verified 12/07/19 13:00 Pork/Porcine Containing Allergy Rash/Hives Verified 12/07/19 13:00 Products [Pork] rice Allergy Rash/Hives Verified 12/07/19 13:00 tree nut [Nut] Allergy Swelling Verified 12/07/19 13:00 muscle relaxers Allergy Unknown Uncoded 12/07/19 13:00 Review of Systems ROS Statement: Those systems with pertinent positive or pertinent negative responses have been documented in the HPI. ROS Other: All systems not noted in ROS Statement are negative. Past Medical History Past Medical History: Seizure Disorder Additional Past Medical History / Comment(s): cyst on kidney, migraines, back pain, brain tumors, History of Any Multi-Drug Resistant Organisms: None Reported Past Surgical History: Cholecystectomy, Tonsillectomy Past Psychological History: No Psychological Hx Reported Smoking Status: Former smoker Past Alcohol Use History: None Reported Past Drug Use History: None Reported General Exam Limitations: no limitations General appearance: alert, in no apparent distress Head exam: Present: atraumatic, normocephalic, normal inspection Eye exam: Present: normal appearance Pupils: Present: normal accommodation ENT exam: Present: normal exam, mucous membranes moist Neck exam: Present: normal inspection, full ROM Respiratory exam: Present: normal lung sounds bilaterally Cardiovascular Exam: Present: regular rate, normal rhythm, normal heart sounds GI/Abdominal exam: Present: soft. Absent: tenderness Extremities exam: Present: normal inspection, full ROM Back exam: Present: normal inspection, full ROM, tenderness, paraspinal tenderness (Bilateral paraspinal tenderness lateral to the shoulder blade). Absent: vertebral tenderness Neurological exam: Present: alert, oriented X3 Psychiatric exam: Present: normal affect, normal mood Skin exam: Present: warm, dry, intact, normal color Course Vital Signs 12/07/19 13:00 Temperature 97.9 F Pulse Rate 69 Respiratory 16 Rate Blood Pressure 124/82 O2 Sat by Pulse 100 Oximetry Medical Decision Making - Medical Decision Making Patient is a 38-year-old female with history of chronic back pain presenting to the emergency Department with chief complaint of back pain. States there is no changes to her back pain. No cauda equina. On exam pain is lateral to bilateral shoulder blades. X-ray was not ordered by me, it was ordered by advanced triage protocol. Patient in the ED looking for a prescription of Ultram and ibuprofen until she is able to see her new family care doctor after she was discharged from the previous family practice due to missing too appointments. Patient will be discharged with less than 3 days of Ultram and 30 tablets of ibuprofen. She states the pain is exactly the same as before. Patient advised not to drive or operate heavy machinery when taking the medication. Strict return parameters were thoroughly discussed with patient is understanding and agreeable. Case discussed with physician. Disposition Clinical Impression: Mechanical back pain, Back pain Disposition: HOME SELF-CARE Condition: Stable Instructions (If sedation given, give patient instructions): Acute Low Back Pain (ED) Additional Instructions: Take prescribed medication as directed. Follow-up with primary care. Return to emergency department if symptoms worsen. Prescriptions: Ibuprofen [Motrin] 600 mg PO Q8HR PRN #30 tab PRN Reason: Pain traMADol HCl [Ultram] 50 mg PO Q6HR PRN 3 Days #12 tab PRN Reason: Pain Is patient prescribed a controlled substance at d/c from ED?: No Referrals: None,Stated [Primary Care Provider] - 1-2 days Time of Disposition: 14:27
== END 2019-12-07 14:33 | disposition home or self-care (01) ==
LOC: EC 12:59
DX: M54.6 Pain in thoracic spine (principal); G89.29 Other chronic pain; Z76.0 Encounter for issue of repeat prescription; Z79.1 Long term (current) use of non-steroidal anti-inflammatories (NSAID); Z91.010 Allergy to peanuts; Z88.6 Allergy status to analgesic agent; Z88.8 Allergy status to other drugs, medicaments and biological substances; Z88.1 Allergy status to other antibiotic agents; Z91.018 Allergy to other foods; Z87.891 Personal history of nicotine dependence; Z53.20 Procedure and treatment not carried out because of patient's decision for unspecified reasons
CPT/HCPCS: 72070; 99283

== ENCOUNTER 2019-12-21 19:45 | Emergency (ER) | payer OTHER ==
[2019-12-21 19:53] VITALS: BP 134/81; PULSE 78; RESP 18; TEMP 99.6
[2019-12-21] MEDS ORDERED: traMADol 50 MG STARTER PACK 3 TAB BTL PO STA (20:15)
--- NOTE | 2019-12-21 20:19 | ED ---
General Adult HPI - General Chief complaint: Back Pain/Injury Stated complaint: Back pain Time Seen by Provider: 12/21/19 19:56 Source: patient, RN notes reviewed Mode of arrival: ambulatory Limitations: no limitations - History of Present Illness Initial comments: 39-year-old female with a past medical history of renal cysts, migraines, tumors, chronic back pain presents to the emergency department for chief complaint of chronic back pain. Patient states she has had this pain for years. States it is from the middle of her back down to her lower back. States it is on both sides of her back. States this feels consistent with previous flares of her back pain. Patient states that bending makes this worse and picking things up. She denies any bladder or bowel changes or numbness or tingling in the legs. Denies any weakness in the legs. Denies fevers or chills. Patient states she is getting into another doctor. States she has an appointment next month for this. States that today the pain worsened when she bent down to pick something up. Sates she is here for pain management.Patient has no other complaints at this time including shortness of breath, chest pain, abdominal pain, nausea or vomiting, headache, or visual changes. - Related Data Previous Rx's Medication Instructions Recorded Ibuprofen [Motrin] 600 mg PO Q8HR PRN #30 tab 12/07/19 traMADol HCl [Ultram] 50 mg PO Q6HR PRN 3 Days #12 tab 12/07/19 Allergies Allergy/AdvReac Type Severity Reaction Status Date / Time carisoprodol [From Soma] Allergy Unknown Verified 12/21/19 19:53 cyclobenzaprine Allergy Rash/Hives Verified 12/21/19 19:53 methocarbamol [From Robaxin] Allergy Rash/Hives Verified 12/21/19 19:53 naproxen [From Naprosyn] Allergy Nausea Verified 12/21/19 19:53 orphenadrine [From Norflex] Allergy Vomiting Verified 12/21/19 19:53 peanut Allergy Anaphylaxis Verified 12/21/19 19:53 Pork/Porcine Containing Allergy Rash/Hives Verified 12/21/19 19:53 Products [Pork] rice Allergy Rash/Hives Verified 12/21/19 19:53 tree nut [Nut] Allergy Swelling Verified 12/21/19 19:53 muscle relaxers Allergy Unknown Uncoded 12/21/19 19:53 Review of Systems ROS Statement: Those systems with pertinent positive or pertinent negative responses have been documented in the HPI. ROS Other: All systems not noted in ROS Statement are negative. Past Medical History Past Medical History: Seizure Disorder Additional Past Medical History / Comment(s): cyst on kidney, migraines, back pain, brain tumors, History of Any Multi-Drug Resistant Organisms: None Reported Past Surgical History: Cholecystectomy, Tonsillectomy Past Psychological History: No Psychological Hx Reported Smoking Status: Former smoker Past Alcohol Use History: None Reported Past Drug Use History: None Reported General Exam Limitations: no limitations General appearance: alert, in no apparent distress Head exam: Present: atraumatic, normocephalic, normal inspection Eye exam: Present: normal appearance, PERRL, EOMI. Absent: scleral icterus, conjunctival injection, periorbital swelling ENT exam: Present: normal exam, mucous membranes moist Neck exam: Present: normal inspection, full ROM. Absent: tenderness, meningismus, lymphadenopathy Respiratory exam: Present: normal lung sounds bilaterally. Absent: respiratory distress, wheezes, rales, rhonchi, stridor Cardiovascular Exam: Present: regular rate, normal rhythm, normal heart sounds. Absent: systolic murmur, diastolic murmur, rubs, gallop, clicks GI/Abdominal exam: Present: soft, normal bowel sounds. Absent: distended, tenderness, guarding, rebound, rigid Extremities exam: Present: normal capillary refill (Capillary refill 2 seconds, DP pulse 2+ in lower extremities bilaterally.) Back exam: Present: paraspinal tenderness (Thoracic and lumbar paraspinal tenderness bilaterally). Absent: vertebral tenderness (No vertebral tenderness) Course Vital Signs 12/21/19 19:49 Temperature 99.6 F Pulse Rate 78 Respiratory 18 Rate Blood Pressure 134/81 O2 Sat by Pulse 98 Oximetry Medical Decision Making - Medical Decision Making Patient has been seen for the same symptoms several times over a period of months. Patient is trying to follow-up with a new doctor. Pain is mostly skeletal in nature. Patient has pain with palpation along the paraspinal thoracic and lumbar muscles. She does not have any thoracic or lumbar spine tenderness. Patient has increased pain when bending forward. Neurovascular status intact in lower extremities. Patient requesting terminal started pack. This will be given to her but I discussed that we cannot continue to do this and she does need to see her new doctor. She is in agreement with this. She will return with worsening symptoms. I discussed this case with attending Dr. Dockery who agrees with this assessment and treatment plan. Disposition Clinical Impression: Chronic back pain Disposition: HOME SELF-CARE Condition: Good Instructions (If sedation given, give patient instructions): Chronic Back Pain (DC) Additional Instructions: Please follow up with her primary care provider. As discussed to May need an MRI. If you have any worsening symptoms return to the emergency department. Is patient prescribed a controlled substance at d/c from ED?: No Referrals: Dong Lopez MD [REFERRING] - 1-2 days Time of Disposition: 20:22
== END 2019-12-21 20:49 | disposition home or self-care (01) ==
LOC: EC 19:45
DX: G89.29 Other chronic pain (principal); M54.6 Pain in thoracic spine; M54.5 Low back pain; Z91.018 Allergy to other foods; Z88.8 Allergy status to other drugs, medicaments and biological substances; Z88.1 Allergy status to other antibiotic agents; Z88.6 Allergy status to analgesic agent; Z87.891 Personal history of nicotine dependence
CPT/HCPCS: 99283

== ENCOUNTER 2020-01-03 13:15 | Emergency (ER) | payer OTHER ==
[2020-01-03 13:19] VITALS: BP 110/79; PULSE 79; TEMP 97.8
--- NOTE | 2020-01-03 13:37 | ED ---
Back Pain HPI - General Chief Complaint: Back Pain/Injury Stated Complaint: back pain Time Seen by Provider: 01/03/20 13:21 Source: patient Limitations: no limitations - History of Present Illness Initial Comments: 39-year-old female presenting today for chief complaint of low back pain x 1 day. Patient states she has chronic low back pain that she feels is exacerbated because she has been moving boxes since yesterday. Patient states is bandlike across the lower back increases with twisting turning movements. Patient doesn't follow direct trauma. She denies fevers IV drug use history of cancer she denies any radiation down the leg. She denies a loss of bowel bladder control urinary retention. Patient denies any vaginal or perineal numbness. Patient denies a difficulty walking or ambulating. Patient denies any hematuria dysuria or urgency frequency or history of kidney stones. Remaining review of systems negative upon arrival patient appears well now signs of acute distress she is able to write and well-appearing - Related Data Previous Rx's Medication Instructions Recorded Ibuprofen [Motrin] 600 mg PO Q8HR PRN #30 tab 12/07/19 traMADol HCl [Ultram] 50 mg PO Q6HR PRN 3 Days #12 tab 12/07/19 traMADol HCL [Ultram] 50 mg PO Q6H PRN 2 Days #8 tab 01/03/20 Allergies Allergy/AdvReac Type Severity Reaction Status Date / Time carisoprodol [From Soma] Allergy Unknown Verified 01/03/20 13:19 cyclobenzaprine Allergy Rash/Hives Verified 01/03/20 13:19 methocarbamol [From Robaxin] Allergy Rash/Hives Verified 01/03/20 13:19 naproxen [From Naprosyn] Allergy Nausea Verified 01/03/20 13:19 orphenadrine [From Norflex] Allergy Vomiting Verified 01/03/20 13:19 peanut Allergy Anaphylaxis Verified 01/03/20 13:19 Pork/Porcine Containing Allergy Rash/Hives Verified 01/03/20 13:19 Products [Pork] rice Allergy Rash/Hives Verified 01/03/20 13:19 tree nut [Nut] Allergy Swelling Verified 01/03/20 13:19 muscle relaxers Allergy Unknown Uncoded 01/03/20 13:19 Review of Systems ROS Statement: Those systems with pertinent positive or pertinent negative responses have been documented in the HPI. ROS Other: All systems not noted in ROS Statement are negative. Past Medical History Past Medical History: Seizure Disorder Additional Past Medical History / Comment(s): cyst on kidney, migraines, back pain, brain tumors, History of Any Multi-Drug Resistant Organisms: None Reported Past Surgical History: Back Surgery, Cholecystectomy, Tonsillectomy Past Psychological History: No Psychological Hx Reported Smoking Status: Former smoker Past Alcohol Use History: None Reported Past Drug Use History: None Reported General Exam - General Exam Comments Initial Comments: General: The patient is awake and alert, in no distress, and does not appear acutely ill. Eye: +3 mm pupils are equal, round and reactive to light, extra-ocular movements are intact. No nystagmus. There is normal conjunctiva bilaterally. No signs of icterus. Cardiovascular: There is a regular rate and rhythm. No murmur, rub or gallop is appreciated. Respiratory: Lungs are clear to auscultation, respirations are non-labored, breath sounds are equal. No wheezes, stridor, rales, or rhonchi. Gastrointestinal: Soft, non-distended, non-tender abdomen without masses or organomegaly noted. There is no rebound or guarding present. Musculoskeletal: Normal inspection of the thoracic and lumbar spine. There is no lesions. Patient has no midline tenderness or patient of the thoracic or lumbar spine however there is noted paraspinal tenderness of the lumbar bilaterally. No evidence of foot drop patient is able to ambulate without difficulty negative straight leg raise bilaterally. Full strength of the lower extremities,, sensation intact of the lower extremity is bilaterally including the saddle region Pulses equal bilaterally 2+. Neurological: A&O x 3. CN II-XII intact grossly, There are no obvious motor or sensory deficits. Coordination appears grossly intact. Speech is normal. Skin: Skin is warm and dry and no rashes or lesions are noted. Psychiatric: Cooperative, appropriate mood & affect, normal judgment. Limitations: no limitations Course Vital Signs 01/03/20 13:16 Temperature 97.8 F Pulse Rate 79 Respiratory 18 Rate Blood Pressure 110/79 O2 Sat by Pulse 99 Oximetry Medical Decision Making - Medical Decision Making 39-year-old female presenting for low back pain after moving objects all day yesterday. History of chronic back pain. There is no red flag features on physical examination or history taking, such as cauda equina-- at this time feel patient is for discharge with symptomatic treatment. Patient is agreeable to this care plan opioids are talking form was discussed and signed by patient. Return parameters were discussed at length patient verbalized understanding she was discharged. While Disposition Clinical Impression: Low back strain Disposition: HOME SELF-CARE Condition: Good Instructions (If sedation given, give patient instructions): Low Back Strain (ED), Lower Back Exercises (ED) Additional Instructions: Please use medication as discussed. Please follow-up with family doctor in the next 2 days. Apply heat to area as discussed. Please return to emergency room if the symptoms increase or worsen or for any other concerns. Prescriptions: traMADol HCL [Ultram] 50 mg PO Q6H PRN 2 Days #8 tab PRN Reason: Pain Is patient prescribed a controlled substance at d/c from ED?: Yes When asked, does pt state using other controlled substances?: No If prescribed controlled substance>3 days was MAPS reviewed?: Prescribed <3 Days If opioid is for acute pain is fill amount 7 days or less?: Yes If Rx opioid, was Start Talking consent form obtained?: Yes Referrals: None,Stated [Primary Care Provider] - 1-2 days [facility] [NON-STAFF] - 1-2 days Time of Disposition: 13:37
[2020-01-03] MEDS ORDERED: traMADol 50 MG STARTER PACK 3 TAB BTL PO STA (13:41)
[2020-01-03 13:56] VITALS: RESP 20
== END 2020-01-03 13:56 | disposition home or self-care (01) ==
LOC: EC 13:15
DX: S39.012A Strain of muscle, fascia and tendon of lower back, initial encounter (principal); G89.29 Other chronic pain; Z87.891 Personal history of nicotine dependence; Z88.6 Allergy status to analgesic agent; Z88.8 Allergy status to other drugs, medicaments and biological substances; Z91.010 Allergy to peanuts; Z91.018 Allergy to other foods; Z98.890 Other specified postprocedural states; X50.9XXA Other and unspecified overexertion or strenuous movements or postures, initial encounter; Y93.89 Activity, other specified
CPT/HCPCS: 99283

== ENCOUNTER 2020-01-17 16:58 | Emergency (ER) | payer OTHER ==
[2020-01-17 17:02] VITALS: BP 136/84; PULSE 90; RESP 18; TEMP 97.9
[2020-01-17] MEDS ORDERED: traMADol 50 MG STARTER PACK 3 TAB BTL PO STA (17:11)
--- NOTE | 2020-01-17 17:16 | ED ---
Back Pain HPI - General Chief Complaint: Back Pain/Injury Stated Complaint: Back pain Time Seen by Provider: 01/17/20 17:07 Source: patient, RN notes reviewed Limitations: no limitations - History of Present Illness Initial Comments: 39-year-old female presented emergency department for complaints of back pain. Patient was lifting a box, She is moving currently and felt a pop in her back. Patient denies any bowel bladder incontinence or retention. Patient states that this is a exacerbation of her chronic pain. Patient was schedule have an appointment Sunday for her pain meds but they closed secondary to viral outbreak. Patient has no complaints of a abdominal plain no fevers chills no dysuria no other complaints. - Related Data Previous Rx's Medication Instructions Recorded Ibuprofen [Motrin] 600 mg PO Q8HR PRN #30 tab 12/07/19 traMADol HCl [Ultram] 50 mg PO Q6HR PRN 3 Days #12 tab 12/07/19 traMADol HCL [Ultram] 50 mg PO Q6H PRN 2 Days #8 tab 01/03/20 traMADol HCl [Ultram] 50 mg PO Q6H PRN #12 tab 01/17/20 Allergies Allergy/AdvReac Type Severity Reaction Status Date / Time carisoprodol [From Soma] Allergy Unknown Verified 01/17/20 16:59 cyclobenzaprine Allergy Rash/Hives Verified 01/17/20 16:59 methocarbamol [From Robaxin] Allergy Rash/Hives Verified 01/17/20 16:59 naproxen [From Naprosyn] Allergy Nausea Verified 01/17/20 16:59 orphenadrine [From Norflex] Allergy Vomiting Verified 01/17/20 16:59 peanut Allergy Anaphylaxis Verified 01/17/20 16:59 Pork/Porcine Containing Allergy Rash/Hives Verified 01/17/20 16:59 Products [Pork] rice Allergy Rash/Hives Verified 01/17/20 16:59 tree nut [Nut] Allergy Swelling Verified 01/17/20 16:59 muscle relaxers Allergy Unknown Uncoded 01/17/20 16:59 Review of Systems ROS Statement: Those systems with pertinent positive or pertinent negative responses have been documented in the HPI. ROS Other: All systems not noted in ROS Statement are negative. Past Medical History Past Medical History: Seizure Disorder Additional Past Medical History / Comment(s): cyst on kidney, migraines, back pain, brain tumors, History of Any Multi-Drug Resistant Organisms: None Reported Past Surgical History: Back Surgery, Cholecystectomy, Tonsillectomy Past Psychological History: No Psychological Hx Reported Smoking Status: Former smoker Past Alcohol Use History: None Reported Past Drug Use History: None Reported General Exam Limitations: no limitations General appearance: alert, in no apparent distress Head exam: Present: atraumatic, normocephalic, normal inspection Neck exam: Present: normal inspection. Absent: tenderness, meningismus, lymphadenopathy Respiratory exam: Present: normal lung sounds bilaterally. Absent: respiratory distress, wheezes, rales, rhonchi, stridor Cardiovascular Exam: Present: regular rate, normal rhythm, normal heart sounds. Absent: systolic murmur, diastolic murmur, rubs, gallop, clicks GI/Abdominal exam: Present: soft, normal bowel sounds. Absent: distended, tenderness, guarding, rebound, rigid Extremities exam: Present: other (Lower extremity strength equal bilaterally neurovascular intact) Back exam: Present: full ROM, tenderness, muscle spasm, paraspinal tenderness. Absent: vertebral tenderness Neurological exam: Present: alert, oriented X3, CN II-XII intact, reflexes normal. Absent: motor sensory deficit Course Vital Signs 01/17/20 16:59 Temperature 97.9 F Pulse Rate 90 Respiratory 18 Rate Blood Pressure 136/84 O2 Sat by Pulse 98 Oximetry Medical Decision Making - Medical Decision Making Patient has acute on chronic exacerbation of back pain. Patient is neurovascular intact, no red flag symptoms. Patient we discharged in stable condition. Disposition Clinical Impression: Low back strain, Chronic back pain Disposition: HOME SELF-CARE Condition: Stable Instructions (If sedation given, give patient instructions): Acute Low Back Pain (ED) Additional Instructions: Please return to the Emergency Department if symptoms worsen or any other concerns. Prescriptions: traMADol HCl [Ultram] 50 mg PO Q6H PRN #12 tab PRN Reason: Pain Is patient prescribed a controlled substance at d/c from ED?: Yes When asked, does pt state using other controlled substances?: No If prescribed controlled substance>3 days was MAPS reviewed?: Prescribed <3 Days If opioid is for acute pain is fill amount 7 days or less?: Yes If Rx opioid, was Start Talking consent form obtained?: Yes Referrals: None,Stated [Primary Care Provider] - 1-2 days Time of Disposition: 17:14
== END 2020-01-17 17:28 | disposition home or self-care (01) ==
LOC: EC 16:58
DX: S39.012A Strain of muscle, fascia and tendon of lower back, initial encounter (principal); G89.29 Other chronic pain; Z87.891 Personal history of nicotine dependence; Z88.6 Allergy status to analgesic agent; Z88.8 Allergy status to other drugs, medicaments and biological substances; Z91.010 Allergy to peanuts; Z91.018 Allergy to other foods; Z98.890 Other specified postprocedural states; X50.9XXA Other and unspecified overexertion or strenuous movements or postures, initial encounter; Y93.89 Activity, other specified
CPT/HCPCS: 99283

== ENCOUNTER 2020-02-06 12:40 | Emergency (ER) | payer OTHER ==
[2020-02-06 12:50] VITALS: BP 124/84; PULSE 83; RESP 20; TEMP 98.3
--- NOTE | 2020-02-06 13:04 | ED ---
General Adult HPI - General Stated complaint: back pain Time Seen by Provider: 02/06/20 12:45 Source: patient, RN notes reviewed Mode of arrival: ambulatory Limitations: no limitations - History of Present Illness Initial comments: 39-year-old female presents to the emergency department for a chief complaint of acute on chronic back pain. Patient states that she always has back pain but yesterday she was moving boxes and it worsened. Patient states this is exactly like her normal back pain. States it is mid back radiating down to the low back. Denies any pain radiating to the legs. Denies any weakness in the legs. Denies bladder or bowel changes. Denies numbness or tingling in the groin or back. Patient has no history of IV drug abuse. No fevers or chills. Patient states she "wants a starter pack." Patient has no other complaints at this time including shortness of breath, chest pain, abdominal pain, nausea or vomiting, headache, or visual changes. - Related Data Previous Rx's Medication Instructions Recorded Ibuprofen [Motrin] 600 mg PO Q8HR PRN #30 tab 12/07/19 traMADol HCl [Ultram] 50 mg PO Q6HR PRN 3 Days #12 tab 12/07/19 traMADol HCL [Ultram] 50 mg PO Q6H PRN 2 Days #8 tab 01/03/20 traMADol HCl [Ultram] 50 mg PO Q6H PRN #12 tab 01/17/20 Allergies Allergy/AdvReac Type Severity Reaction Status Date / Time carisoprodol [From Soma] Allergy Unknown Verified 02/06/20 12:50 cyclobenzaprine Allergy Rash/Hives Verified 02/06/20 12:50 methocarbamol [From Robaxin] Allergy Rash/Hives Verified 02/06/20 12:50 naproxen [From Naprosyn] Allergy Nausea Verified 02/06/20 12:50 orphenadrine [From Norflex] Allergy Vomiting Verified 02/06/20 12:50 peanut Allergy Anaphylaxis Verified 02/06/20 12:50 Pork/Porcine Containing Allergy Rash/Hives Verified 02/06/20 12:50 Products [Pork] rice Allergy Rash/Hives Verified 02/06/20 12:50 tree nut [Nut] Allergy Swelling Verified 02/06/20 12:50 muscle relaxers Allergy Unknown Uncoded 02/06/20 12:50 Review of Systems ROS Statement: Those systems with pertinent positive or pertinent negative responses have been documented in the HPI. ROS Other: All systems not noted in ROS Statement are negative. Past Medical History Past Medical History: Seizure Disorder Additional Past Medical History / Comment(s): cyst on kidney, migraines, back pain, brain tumors, History of Any Multi-Drug Resistant Organisms: None Reported Past Surgical History: Cholecystectomy, Tonsillectomy Past Psychological History: No Psychological Hx Reported Smoking Status: Former smoker Past Alcohol Use History: None Reported Past Drug Use History: None Reported General Exam Limitations: no limitations General appearance: alert, in no apparent distress Head exam: Present: atraumatic, normocephalic, normal inspection Eye exam: Present: normal appearance, PERRL, EOMI. Absent: scleral icterus, conjunctival injection, periorbital swelling ENT exam: Present: normal exam, mucous membranes moist Neck exam: Present: normal inspection. Absent: tenderness, meningismus, lymphadenopathy Respiratory exam: Present: normal lung sounds bilaterally. Absent: respiratory distress, wheezes, rales, rhonchi, stridor Cardiovascular Exam: Present: regular rate, normal rhythm, normal heart sounds. Absent: systolic murmur, diastolic murmur, rubs, gallop, clicks GI/Abdominal exam: Present: soft, normal bowel sounds. Absent: distended, tenderness, guarding, rebound, rigid Extremities exam: Present: full ROM (Strength 5 out of 5 in lower extremity bilaterally), normal capillary refill (Capillary refill less than 2 seconds in lower extremity bilaterally), other (sensation intact in BLE) Back exam: Absent: vertebral tenderness Neurological exam: Present: normal gait Course Vital Signs 02/06/20 12:45 Temperature 98.3 F Pulse Rate 83 Respiratory 20 Rate Blood Pressure 124/84 O2 Sat by Pulse 99 Oximetry Medical Decision Making - Medical Decision Making Patient has acute on chronic exacerbation of low back pain. No red flag symptoms. Patient has been seen here 12 times in the past year for this same complaint. Many times she reports she reports she was moving boxes. Patient was discharged from her primary care several months ago and was taking Ultram. Patient has reported here several times requesting starter packs of opioid pain medications. Patient has received 3 prescriptions of tramadol from this emergency department within the past 2 months. States That her insurance fell through when she was supposed to see her own doctor and now they are scheduling her for a month away. States that her sees Dr. Blanco for similar problems but that she has not tried to follow-up with him. At this time patient was given Toradol. I did discuss that I cannot give her more prescriptions for narcotics and that she will need to see primary care for this. Patient is understanding. I did request to return for any worsening symptoms Disposition Clinical Impression: Chronic back pain Disposition: HOME SELF-CARE Condition: Good Instructions (If sedation given, give patient instructions): Back Pain (ED) Additional Instructions: Please continue to take Motrin and Tylenol for pain. Follow-up with primary care or orthopedics in one to 2 days. If you have any worsening symptoms such as bladder or bowel changes, weakness of the lower extremities, return to the emergency department. Is patient prescribed a controlled substance at d/c from ED?: No Referrals: Paulo Blanco DO [Doctor of Osteopathic Medicine] - 1-2 days Eri Hi MD [STAFF PHYSICIAN] - 1-2 days Time of Disposition: 13:07
[2020-02-06] MEDS ORDERED: KETOROLAC 30 MG/ML 1 ML VIAL IM STA (13:06)
== END 2020-02-06 13:16 | disposition home or self-care (01) ==
LOC: EC 12:40
DX: G89.29 Other chronic pain (principal); M54.5 Low back pain; Z88.6 Allergy status to analgesic agent; Z91.010 Allergy to peanuts; Z91.018 Allergy to other foods; Z88.8 Allergy status to other drugs, medicaments and biological substances; Z87.891 Personal history of nicotine dependence
CPT/HCPCS: 99283

== ENCOUNTER 2020-02-28 10:47 | Emergency (ER) | payer OTHER ==
[2020-02-28 10:51] VITALS: BP 118/79; PULSE 80; RESP 18; TEMP 98.3
[2020-02-28] MEDS ORDERED: traMADol 50 MG TAB PO STA (11:31)
--- NOTE | 2020-02-28 12:01 | ED ---
General Adult HPI - General Chief complaint: Back Pain/Injury Stated complaint: sciatica Time Seen by Provider: 02/28/20 11:00 Source: patient, RN notes reviewed, old records reviewed Mode of arrival: ambulatory Limitations: no limitations - History of Present Illness Initial comments: 39-year-old female patient Has a significant for chronic back pain presents ED for chief complaint of exacerbation of back pain. Patient reports that her pain is in her mid thoracic region. This typical for her. Reports that she does have pain radiating down the back of her legs bilaterally. Denies any saddle anesthesia, loss of bowel or bladder control, denies any lower extremity weakness. Denies any other complaints. Systemic: Pt denies fatigue, fever/chills, rash. Pt denies weakness, night sweats, weight loss. Neuro: Pt denies headache, visual disturbances, syncope or pre-syncope. HEENT: Pt denies ocular discharge or irritation, otalgia, rhinorrhea, pha ryngitis or notable lymphadenopathy. Cardiopulmonary: Pt denies chest pain, SOB, heart palpitations, dyspnea on exertion. Abdominal/GI: Pt denies abdominal pain, n/v/d. : Pt denies dysuria, burning w/ urination, frequency/urgency. Denies new onset urinary or bowel incontinence. MSK: Pt denies loss of strength or function in extremities. Neuro: Pt denies new onset weakness, paresthesias. - Related Data Previous Rx's Medication Instructions Recorded Ibuprofen [Motrin] 600 mg PO Q8HR PRN #30 tab 12/07/19 traMADol HCl [Ultram] 50 mg PO Q6HR PRN 3 Days #12 tab 12/07/19 traMADol HCL [Ultram] 50 mg PO Q6H PRN 2 Days #8 tab 01/03/20 traMADol HCl [Ultram] 50 mg PO Q6H PRN #12 tab 01/17/20 Allergies Allergy/AdvReac Type Severity Reaction Status Date / Time carisoprodol [From Soma] Allergy Unknown Verified 02/28/20 10:51 cyclobenzaprine Allergy Rash/Hives Verified 02/28/20 10:51 methocarbamol [From Robaxin] Allergy Rash/Hives Verified 02/28/20 10:51 naproxen [From Naprosyn] Allergy Nausea Verified 02/28/20 10:51 orphenadrine [From Norflex] Allergy Vomiting Verified 02/28/20 10:51 peanut Allergy Anaphylaxis Verified 02/28/20 10:51 Pork/Porcine Containing Allergy Rash/Hives Verified 02/28/20 10:51 Products [Pork] rice Allergy Rash/Hives Verified 02/28/20 10:51 tree nut [Nut] Allergy Swelling Verified 02/28/20 10:51 ketorolac [From Toradol] AdvReac Vomiting Verified 02/28/20 10:51 muscle relaxers Allergy Unknown Uncoded 02/28/20 10:51 Review of Systems ROS Statement: Those systems with pertinent positive or pertinent negative responses have been documented in the HPI. ROS Other: All systems not noted in ROS Statement are negative. Past Medical History Past Medical History: Seizure Disorder Additional Past Medical History / Comment(s): cyst on kidney, migraines, back pain, brain tumors, History of Any Multi-Drug Resistant Organisms: None Reported Past Surgical History: Cholecystectomy, Tonsillectomy Past Psychological History: No Psychological Hx Reported Smoking Status: Former smoker Past Alcohol Use History: None Reported Past Drug Use History: None Reported General Exam - General Exam Comments Initial Comments: Constitutional: NAD, AOX3, Pt has pleasant affect. HEENT: NC/AT, trachea midline, neck supple, no lymphadenopathy. External ears appear normal, without discharge. Mucous membranes moist. Eyes PERRLA, EOM intact. There is no scleral icterus. No pallor noted. Cardiopulmonary: RRR, no murmurs, rubs or gallops, no JVD noted. Lungs CTAB in anterior and posterior cervantes. No peripheral edema. Abdominal exam: Abdomen soft and non-distended. Abdomen non-tender to palpation in all 4 quadrants. Bowel sounds active in LLQ. No hepatosplenomegaly. No ecchymosis Neuro: CN II-XII grossly intact. No nuchal rigidity. No raccon eyes, no mccann sign, no hemotympanum. No cervical spinal tenderness. MSK: Straight leg raise negative. Parathoracic region mildly tender to palpation. No skin changes. 5/5 strength psoas quadriceps muscles. Heel-to-toe walking intact. Sensation intact. No posterior calf tenderness bilaterally, homans sign negative bilaterally. Posterior tibialis and radial pulse +2 bilaterally. Sensation intact in upper and lower extremities. Full active ROM in upper and lower extremities, 5/5 stregnth. Limitations: no limitations Course Vital Signs 04/25/20 10:48 Temperature 98.3 F Pulse Rate 80 Respiratory 18 Rate Blood Pressure 118/79 O2 Sat by Pulse 100 Oximetry Medical Decision Making - Medical Decision Making 39-year-old female patient Has a significant for chronic back pain presents ED for chief complaint of exacerbation of back pain. Patient reports that her pain is in her mid thoracic region. This typical for her. Reports that she does have pain radiating down the back of her legs bilaterally. Denies any saddle anesthesia, loss of bowel or bladder control, denies any lower extremity weakness. Denies any other complaints. Patient vital tender stable, afebrile. Physical exam displayed: Straight leg raise negative. Parathoracic region mildly tender to palpation. No skin changes. 5/5 strength psoas quadriceps muscles. Heel-to-toe walking intact. Sensation intact. Pt requested outpatient rx of opoid medications. Explained to patient that I could treat acute pain however we do not prescribe opiates for chronic pain on an outpatient basis. Analgesia was ordered for patient prior to this being administered patient eloped from the emergency department. Case discussed with Dr. Mujica. Disposition Clinical Impression: Chronic back pain Disposition: Left Against Medical Advice Condition: Undetermined Is patient prescribed a controlled substance at d/c from ED?: No Referrals: None,Stated [Primary Care Provider] - 1-2 days
== END 2020-02-28 11:48 | disposition left against medical advice (07) ==
LOC: EC 10:47
DX: G89.29 Other chronic pain (principal); M54.6 Pain in thoracic spine; Z88.8 Allergy status to other drugs, medicaments and biological substances; Z88.6 Allergy status to analgesic agent; Z91.010 Allergy to peanuts; Z91.018 Allergy to other foods; Z87.891 Personal history of nicotine dependence
CPT/HCPCS: 99283

== ENCOUNTER 2020-03-24 13:03 | Emergency (ER) | payer OTHER ==
[2020-03-24 13:24] VITALS: BP 124/87; PULSE 83; RESP 18; TEMP 98.6
[2020-03-24] MEDS ORDERED: traMADol 50 MG STARTER PACK 3 TAB BTL PO STA (13:32)
[2020-03-24] MEDS ORDERED: IBUPROFEN 800 MG TAB PO STA (13:32)
--- NOTE | 2020-03-24 13:37 | ED ---
Back Pain HPI - General Chief Complaint: Back Pain/Injury Stated Complaint: Back/Leg Pain Time Seen by Provider: 03/24/20 13:21 Source: patient - History of Present Illness Initial Comments: Patient is a 39-year-old female history of chronic back pain presenting to emergency Department with a chief complaint of back pain. States she has an appointment set up with a spine surgeon, pain management doctor and sign writer hand. Patient states she has not been able to obtain any other medications. Patient states bilateral paraspinal lumbar pain that is radiating along the bilateral lower extremities on the posterior aspect. States the pain is exacerbated with left rotation. No saddle anesthesia or urinary bowel incontinence. No night sweats or chills. No direct trauma. - Related Data Previous Rx's Medication Instructions Recorded Ibuprofen [Motrin] 600 mg PO Q8HR PRN #30 tab 12/07/19 traMADol HCl [Ultram] 50 mg PO Q6HR PRN 3 Days #12 tab 12/07/19 traMADol HCL [Ultram] 50 mg PO Q6H PRN 2 Days #8 tab 01/03/20 traMADol HCl [Ultram] 50 mg PO Q6H PRN #12 tab 01/17/20 Ibuprofen [Motrin] 800 mg PO Q8HR #30 tab 03/24/20 Allergies Allergy/AdvReac Type Severity Reaction Status Date / Time carisoprodol [From Soma] Allergy Unknown Verified 03/24/20 13:25 cyclobenzaprine Allergy Rash/Hives Verified 03/24/20 13:25 methocarbamol [From Robaxin] Allergy Rash/Hives Verified 03/24/20 13:25 naproxen [From Naprosyn] Allergy Nausea Verified 03/24/20 13:25 orphenadrine [From Norflex] Allergy Vomiting Verified 03/24/20 13:25 peanut Allergy Anaphylaxis Verified 03/24/20 13:25 Pork/Porcine Containing Allergy Rash/Hives Verified 03/24/20 13:25 Products [Pork] rice Allergy Rash/Hives Verified 03/24/20 13:25 tree nut [Nut] Allergy Swelling Verified 03/24/20 13:25 ketorolac [From Toradol] AdvReac Vomiting Verified 03/24/20 13:25 muscle relaxers Allergy Unknown Uncoded 03/24/20 13:25 Review of Systems ROS Statement: Those systems with pertinent positive or pertinent negative responses have been documented in the HPI. ROS Other: All systems not noted in ROS Statement are negative. Past Medical History Past Medical History: Seizure Disorder Additional Past Medical History / Comment(s): cyst on kidney, migraines, back pain, brain tumors, History of Any Multi-Drug Resistant Organisms: None Reported Past Surgical History: Cholecystectomy, Tonsillectomy Past Psychological History: No Psychological Hx Reported Smoking Status: Former smoker Past Alcohol Use History: None Reported Past Drug Use History: None Reported General Exam Limitations: no limitations General appearance: alert, in no apparent distress Head exam: Present: atraumatic, normocephalic, normal inspection Eye exam: Present: normal appearance, PERRL, EOMI Pupils: Present: normal accommodation ENT exam: Present: normal exam, mucous membranes moist Neck exam: Present: normal inspection, full ROM Respiratory exam: Present: normal lung sounds bilaterally Cardiovascular Exam: Present: regular rate, normal rhythm, normal heart sounds Extremities exam: Present: normal inspection, full ROM, normal capillary refill Back exam: Present: normal inspection, full ROM, tenderness, paraspinal tenderness (Lumbar region), vertebral tenderness (Lumbar region) Psychiatric exam: Present: normal affect, normal mood Skin exam: Present: warm, dry, intact, normal color Course Vital Signs 03/24/20 13:20 Temperature 98.6 F Pulse Rate 83 Respiratory 18 Rate Blood Pressure 124/87 O2 Sat by Pulse 100 Oximetry Medical Decision Making - Medical Decision Making Patient is a 39-year-old female history of chronic back pain presents to emergency department with a chief complaint back pain. Patient has appointment scheduled to seek further care for her chronic back pain. Patient states only ibuprofen and tramadol seemed to work for her pain. On exam patient does have lumbar back pain that is exacerbated by left and right rotation. Patient was given ibuprofen 800 and tramadol. No red flags. No cauda equina. Reevaluation patient reports improvement in symptoms and is ready go home. Return parameters thoroughly discussed with patient was understanding and agreeable. Case discussed with physician. Disposition Clinical Impression: Mechanical back pain, Strain of lumbar region, Lumbar radiculopathy Disposition: HOME SELF-CARE Condition: Stable Instructions (If sedation given, give patient instructions): Acute Low Back P ain (ED) Additional Instructions: Take prescribed medication as directed. Follow with primary care. Return to emergency department if symptoms worsen. Prescriptions: Ibuprofen [Motrin] 800 mg PO Q8HR #30 tab Is patient prescribed a controlled substance at d/c from ED?: No Referrals: None,Stated [Primary Care Provider] - 1-2 days Time of Disposition: 13:37
== END 2020-03-24 14:11 | disposition home or self-care (01) ==
LOC: EC 13:03
DX: S39.012A Strain of muscle, fascia and tendon of lower back, initial encounter (principal); M54.16 Radiculopathy, lumbar region; Z88.8 Allergy status to other drugs, medicaments and biological substances; Z91.030 Bee allergy status; Z91.018 Allergy to other foods; Z88.5 Allergy status to narcotic agent; Z87.891 Personal history of nicotine dependence; X58.XXXA Exposure to other specified factors, initial encounter
CPT/HCPCS: 99283

== ENCOUNTER 2020-03-26 12:01 | Emergency (ER) | payer OTHER ==
[2020-03-26 12:13] VITALS: BP 127/89; PULSE 74; RESP 20; TEMP 98.7
--- NOTE | 2020-03-26 12:58 | ED ---
Back Pain HPI - General Source: patient, RN notes reviewed Limitations: no limitations <Cal Ordaz - Last Filed: 03/26/20 12:54> <Lena Day - Last Filed: 03/29/20 23:44> - General Chief Complaint: Back Pain/Injury Stated Complaint: Back pain Time Seen by Provider: 03/26/20 12:19 - History of Present Illness Initial Comments: 39-year-old female presented to emergency department with chief complaint of chronic back pain. Patient states that his been more bothersome. Patient was seen here a few days ago was given [tramadol. Patient denies any bowel, bladder incontinence or retention or saddle anesthesias or lower extremity paresthesias. She is no point abdominal pain. She has an appointment with her PCP Dr. Dinh in 6 days. Patient states that she also has an appointment with pain management.. Patient denies any difficulty ambulate in. No chest pain or shortness breath. (Cal Ordaz) - Related Data Previous Rx's Medication Instructions Recorded Ibuprofen [Motrin] 600 mg PO Q8HR PRN #30 tab 12/07/19 Ibuprofen [Motrin] 800 mg PO Q8HR #30 tab 03/24/20 traMADol HCl [Ultram] 50 mg PO Q6H PRN #12 tab 03/26/20 Allergies Allergy/AdvReac Type Severity Reaction Status Date / Time carisoprodol [From Soma] Allergy Unknown Verified 03/26/20 12:13 cyclobenzaprine Allergy Rash/Hives Verified 03/26/20 12:13 methocarbamol [From Robaxin] Allergy Rash/Hives Verified 03/26/20 12:13 naproxen [From Naprosyn] Allergy Nausea Verified 03/26/20 12:13 orphenadrine [From Norflex] Allergy Vomiting Verified 03/26/20 12:13 peanut Allergy Anaphylaxis Verified 03/26/20 12:13 Pork/Porcine Containing Allergy Rash/Hives Verified 03/26/20 12:13 Products [Pork] rice Allergy Rash/Hives Verified 03/26/20 12:13 tree nut [Nut] Allergy Swelling Verified 03/26/20 12:13 ketorolac [From Toradol] AdvReac Vomiting Verified 03/26/20 12:13 muscle relaxers Allergy Unknown Uncoded 03/26/20 12:13 Review of Systems ROS Other: All systems not noted in ROS Statement are negative. <Cal Ordaz - Last Filed: 03/26/20 12:54> ROS Other: All systems not noted in ROS Statement are negative. <Lena Day - Last Filed: 03/29/20 23:44> ROS Statement: Those systems with pertinent positive or pertinent negative responses have been documented in the HPI. Past Medical History Past Medical History: Seizure Disorder Additional Past Medical History / Comment(s): cyst on kidney, migraines, back pain, brain tumors, History of Any Multi-Drug Resistant Organisms: None Reported Past Surgical History: Cholecystectomy, Tonsillectomy Past Psychological History: No Psychological Hx Reported Smoking Status: Former smoker Past Alcohol Use History: None Reported Past Drug Use History: None Reported <Cal Ordaz - Last Filed: 03/26/20 12:54> General Exam Limitations: no limitations General appearance: alert, in no apparent distress Head exam: Present: atraumatic, normocephalic, normal inspection Eye exam: Present: normal appearance, PERRL, EOMI. Absent: scleral icterus, conjunctival injection, periorbital swelling Respiratory exam: Present: normal lung sounds bilaterally. Absent: respiratory distress, wheezes, rales, rhonchi, stridor Cardiovascular Exam: Present: regular rate, normal rhythm, normal heart sounds. Absent: systolic murmur, diastolic murmur, rubs, gallop, clicks GI/Abdominal exam: Present: soft, normal bowel sounds. Absent: distended, tenderness, guarding, rebound, rigid Extremities exam: Present: other (Lower extremity strength equal bilaterally, neurovascular intact equal color equal warmth) Back exam: Present: full ROM, tenderness, paraspinal tenderness, other. Absent: vertebral tenderness Neurological exam: Present: alert, oriented X3, CN II-XII intact, reflexes normal. Absent: motor sensory deficit <Cal Ordaz - Last Filed: 03/26/20 12:54> Course Vital Signs 03/26/20 12:11 Temperature 98.7 F Pulse Rate 74 Respiratory 20 Rate Blood Pressure 127/89 O2 Sat by Pulse 100 Oximetry Medical Decision Making <Cal Ordaz - Last Filed: 03/26/20 12:54> <Lena Day - Last Filed: 03/29/20 23:44> - Medical Decision Making Patient has acute on chronic back pain. She has no red flag symptoms she is neurologically intact. Patient has an appointment with PCP and pain management. Return parameters were discussed. (Cal Ordaz) I was available for consultation in the emergency department. The history and physical exam were done by the midlevel provider. I was consulted for this patients care. I reviewed the case with the midlevel provider and based on their presentation of the patient, I agree with the assessment, medical decision making and plan of care as documented. Chart was dictated using [employer] dictation software. Attempts were made to correct any dictation errors however some typographical errors may persist. Patient was seen during a national state of emergency due to the Covid-19 pandemic. (Lena Day) Disposition Is patient prescribed a controlled substance at d/c from ED?: No Time of Disposition: 12:56 <Cal Ordaz - Last Filed: 03/26/20 12:54> <Lena Day - Last Filed: 03/29/20 23:44> Clinical Impression: Acute exacerbation of chronic low back pain Disposition: HOME SELF-CARE Condition: Stable Instructions (If sedation given, give patient instructions): Acute Low Back Pain (ED) Additional Instructions: Please return to the Emergency Department if symptoms worsen or any other concerns. Prescriptions: traMADol HCl [Ultram] 50 mg PO Q6H PRN #12 tab PRN Reason: Pain Referrals: Aubrey Dinh MD [Primary Care Provider] - 1-2 days
== END 2020-03-26 13:28 | disposition home or self-care (01) ==
LOC: EC 12:01
DX: G89.29 Other chronic pain (principal); M54.5 Low back pain; Z88.8 Allergy status to other drugs, medicaments and biological substances; Z91.030 Bee allergy status; Z91.018 Allergy to other foods; Z88.6 Allergy status to analgesic agent; Z87.891 Personal history of nicotine dependence
CPT/HCPCS: 99283

== ENCOUNTER 2020-03-30 11:06 | Emergency (ER) | payer OTHER ==
[2020-03-30 11:12] VITALS: BP 120/76; PULSE 84; RESP 18; TEMP 98.6
--- NOTE | 2020-03-30 11:45 | ED ---
Back Pain HPI - General Chief Complaint: Back Pain/Injury Stated Complaint: Back pain Time Seen by Provider: 03/30/20 11:18 Source: patient Limitations: no limitations - History of Present Illness Initial Comments: Patient is a 39-year-old female with history of chronic back pain presenting to the emergency department with a chief complaint of back pain. Patient reports she was here recently for a refill on her tramadol. He states she has an appointment scheduled with on (05/02/20). States she is only here to obtain enough tramadol to last her until the appointment. States most of the pain is located in the lumbar region but she does get occasional radiation to her shoulders. Denies any chest pain shortness of breath nausea vomiting diarrhea. No saddle anesthesia. No urinary or bowel incontinence. No night sweats or chills. - Related Data Previous Rx's Medication Instructions Recorded Ibuprofen [Motrin] 600 mg PO Q8HR PRN #30 tab 12/07/19 Ibuprofen [Motrin] 800 mg PO Q8HR #30 tab 03/24/20 traMADol HCl [Ultram] 50 mg PO Q6H PRN #12 tab 03/26/20 Allergies Allergy/AdvReac Type Severity Reaction Status Date / Time carisoprodol [From Soma] Allergy Unknown Verified 03/30/20 11:12 cyclobenzaprine Allergy Rash/Hives Verified 03/30/20 11:12 methocarbamol [From Robaxin] Allergy Rash/Hives Verified 03/30/20 11:12 naproxen [From Naprosyn] Allergy Nausea Verified 03/30/20 11:12 orphenadrine [From Norflex] Allergy Vomiting Verified 03/30/20 11:12 peanut Allergy Anaphylaxis Verified 03/30/20 11:12 Pork/Porcine Containing Allergy Rash/Hives Verified 03/30/20 11:12 Products [Pork] rice Allergy Rash/Hives Verified 03/30/20 11:12 tree nut [Nut] Allergy Swelling Verified 03/30/20 11:12 ketorolac [From Toradol] AdvReac Vomiting Verified 03/30/20 11:12 muscle relaxers Allergy Unknown Uncoded 03/26/20 12:13 Review of Systems ROS Statement: Those systems with pertinent positive or pertinent negative responses have been documented in the HPI. ROS Other: All systems not noted in ROS Statement are negative. Past Medical History Past Medical History: Seizure Disorder Additional Past Medical History / Comment(s): cyst on kidney, migraines, back pain, brain tumors, History of Any Multi-Drug Resistant Organisms: None Reported Past Surgical History: Cholecystectomy, Tonsillectomy Past Psychological History: No Psychological Hx Reported Smoking Status: Former smoker Past Alcohol Use History: None Reported Past Drug Use History: None Reported General Exam Limitations: no limitations General appearance: alert, in no apparent distress Head exam: Present: atraumatic, normocephalic, normal inspection Eye exam: Present: normal appearance, PERRL, EOMI Pupils: Present: normal accommodation ENT exam: Present: normal exam Neck exam: Present: normal inspection, full ROM Respiratory exam: Present: normal lung sounds bilaterally Cardiovascular Exam: Present: regular rate, normal rhythm, normal heart sounds GI/Abdominal exam: Present: soft. Absent: distended, tenderness Extremities exam: Present: normal inspection, full ROM. Absent: tenderness Back exam: Present: normal inspection, full ROM, tenderness (Lumbar tenderness. Paraspinal tenderness in the upper thoracic region.), paraspinal tenderness. Absent: muscle spasm Neurological exam: Present: alert, oriented X3 Psychiatric exam: Present: normal affect, normal mood Skin exam: Present: warm, dry, intact, normal color Course Vital Signs 03/30/20 11:07 Temperature 98.6 F Pulse Rate 84 Respiratory 18 Rate Blood Pressure 120/76 O2 Sat by Pulse 100 Oximetry Medical Decision Making - Medical Decision Making Patient is a 39-year-old female with history of chronic presenting to emergency department with a chief complaint of back pain. On exam she does have paraspinal upper thoracic tenderness which is suspect musculoskeletal in nature. Also has mechanical lower back pain. No signs of cauda equina. No red flags. Patient given a tramadol starter pack. She will see a painter drum in 2 days. Return parameters thoroughly discussed. Case discussed with physician. Disposition Clinical Impression: Strain of lumbar region, Lower back pain Disposition: HOME SELF-CARE Condition: Stable Instructions (If sedation given, give patient instructions): Acute Low Back Pain (ED) Additional Instructions: Take prescribed medication as directed. Follow-up with a painter drum. Return to emergency department if symptoms worsen. Is patient prescribed a controlled substance at d/c from ED?: No Referrals: Aubrey Dinh MD [Primary Care Provider] - 1-2 days Time of Disposition: 12:02
[2020-03-30] MEDS ORDERED: traMADol 50 MG STARTER PACK 3 TAB BTL PO STA (12:00)
== END 2020-03-30 12:21 | disposition home or self-care (01) ==
LOC: EC 11:06
DX: S39.012A Strain of muscle, fascia and tendon of lower back, initial encounter (principal); G89.29 Other chronic pain; M54.5 Low back pain; Z88.8 Allergy status to other drugs, medicaments and biological substances; Z88.6 Allergy status to analgesic agent; Z91.010 Allergy to peanuts; Z91.018 Allergy to other foods; Z87.891 Personal history of nicotine dependence; X50.9XXA Other and unspecified overexertion or strenuous movements or postures, initial encounter
CPT/HCPCS: 99283

== ENCOUNTER 2020-06-15 19:04 | Emergency (ER) | payer OTHER ==
[2020-06-15 19:16] VITALS: BP 122/86; PULSE 78; RESP 18; TEMP 98.8
--- NOTE | 2020-06-15 19:36 | ED ---
Back Pain HPI - General Chief Complaint: Back Pain/Injury Stated Complaint: back & leg pain Time Seen by Provider: 06/15/20 19:27 Source: patient, RN notes reviewed Limitations: no limitations - History of Present Illness Initial Comments: 39-year-old female presents emergency Department chief complaint back pain. Chronic nature. Patient denies any bowel, bladder incontinence or retention. Denies any abdominal pain no new trauma no saddle anesthesias. Patient states that she missed her appointment with her PCP in which she was discharged from Dr. Dinh's office. Patient offers no complaints. - Related Data Previous Rx's Medication Instructions Recorded Ibuprofen [Motrin] 600 mg PO Q8HR PRN #30 tab 12/07/19 Ibuprofen [Motrin] 800 mg PO Q8HR #30 tab 03/24/20 traMADol HCl [Ultram] 50 mg PO Q6H PRN #12 tab 03/26/20 traMADol HCl [Ultram] 50 mg PO Q6H PRN #12 tab 06/15/20 Allergies Allergy/AdvReac Type Severity Reaction Status Date / Time carisoprodol [From Soma] Allergy Unknown Verified 06/15/20 19:16 cyclobenzaprine Allergy Rash/Hives Verified 06/15/20 19:16 methocarbamol [From Robaxin] Allergy Rash/Hives Verified 06/15/20 19:16 naproxen [From Naprosyn] Allergy Nausea Verified 06/15/20 19:16 orphenadrine [From Norflex] Allergy Vomiting Verified 06/15/20 19:16 peanut Allergy Anaphylaxis Verified 06/15/20 19:16 Pork/Porcine Containing Allergy Rash/Hives Verified 06/15/20 19:16 Products [Pork] rice Allergy Rash/Hives Verified 06/15/20 19:16 tree nut [Nut] Allergy Swelling Verified 06/15/20 19:16 ketorolac [From Toradol] AdvReac Vomiting Verified 06/15/20 19:16 muscle relaxers Allergy Unknown Uncoded 06/15/20 19:16 Review of Systems ROS Statement: Those systems with pertinent positive or pertinent negative responses have been documented in the HPI. ROS Other: All systems not noted in ROS Statement are negative. Past Medical History Past Medical History: Seizure Disorder Additional Past Medical History / Comment(s): cyst on kidney, migraines, back pain, brain tumors, History of Any Multi-Drug Resistant Organisms: None Reported Past Surgical History: Cholecystectomy, Tonsillectomy Past Psychological History: No Psychological Hx Reported Past Alcohol Use History: None Reported Past Drug Use History: None Reported General Exam Limitations: no limitations General appearance: alert, in no apparent distress Head exam: Present: atraumatic, normocephalic, normal inspection Respiratory exam: Present: normal lung sounds bilaterally. Absent: respiratory distress, wheezes, rales, rhonchi, stridor Cardiovascular Exam: Present: regular rate, normal rhythm, normal heart sounds. Absent: systolic murmur, diastolic murmur, rubs, gallop, clicks GI/Abdominal exam: Present: soft, normal bowel sounds. Absent: distended, tenderness, guarding, rebound, rigid Extremities exam: Present: normal inspection, full ROM, normal capillary refill, other (Lower extremity strength equal bilaterally neurovascular intact equal color equal warmth). Absent: tenderness, pedal edema, joint swelling, calf tenderness Back exam: Present: full ROM, tenderness, paraspinal tenderness. Absent: CVA tenderness (R), CVA tenderness (L), vertebral tenderness Neurological exam: Present: reflexes normal. Absent: motor sensory deficit Course Vital Signs 06/15/20 19:12 Temperature 98.8 F Pulse Rate 78 Respiratory 18 Rate Blood Pressure 122/86 O2 Sat by Pulse 99 Oximetry Medical Decision Making - Medical Decision Making Patient given prescription for tramadol. Patient advised follow-up with PCP or pain management and she's had multiple visits. Return parameters were discussed. Disposition Clinical Impression: Strain of lumbar region Disposition: HOME SELF-CARE Condition: Stable Instructions (If sedation given, give patient instructions): Acute Low Back Pain (ED) Additional Instructions: Please return to the Emergency Department if symptoms worsen or any other conc erns. Prescriptions: traMADol HCl [Ultram] 50 mg PO Q6H PRN #12 tab PRN Reason: Pain Is patient prescribed a controlled substance at d/c from ED?: Yes When asked, does pt state using other controlled substances?: No If prescribed controlled substance>3 days was MAPS reviewed?: Prescribed <3 Days Referrals: None,Stated [Primary Care Provider] - 1-2 days Time of Disposition: 19:35
== END 2020-06-15 19:50 | disposition home or self-care (01) ==
LOC: EC 19:04
DX: S39.012A Strain of muscle, fascia and tendon of lower back, initial encounter (principal); Z88.8 Allergy status to other drugs, medicaments and biological substances; Z88.6 Allergy status to analgesic agent; Z91.010 Allergy to peanuts; Z91.018 Allergy to other foods; Z88.5 Allergy status to narcotic agent; X58.XXXA Exposure to other specified factors, initial encounter
CPT/HCPCS: 99283

== ENCOUNTER 2020-06-22 13:33 | Emergency (ER) | payer OTHER ==
[2020-06-22 13:38] VITALS: BP 117/83; PULSE 80; RESP 18; TEMP 98.4
--- NOTE | 2020-06-22 14:17 | ED ---
Back Pain HPI - General Chief Complaint: Back Pain/Injury Stated Complaint: back/leg pain Time Seen by Provider: 06/22/20 13:51 Source: patient, RN notes reviewed Limitations: no limitations - History of Present Illness Initial Comments: 39-year-old female with chronic back pain presents emergency Department with chief complaint of exacerbation of low back pain. She was lifting a chair at forward. She states she felt a pop towards her back. She states there is a lump in the right side of her back and is very painful. She has penetrating down her legs denies any bowel, bladder Retention. She has an appointment with her new pain management/physician on July 30. Patient denies any other associated complaints. - Related Data Previous Rx's Medication Instructions Recorded Ibuprofen [Motrin] 600 mg PO Q8HR PRN #30 tab 12/07/19 Ibuprofen [Motrin] 800 mg PO Q8HR #30 tab 03/24/20 Metaxalone [Skelaxin] 800 mg PO TID #15 tab 06/22/20 traMADol HCl [Ultram] 50 mg PO Q6H PRN #12 tab 06/22/20 Allergies Allergy/AdvReac Type Severity Reaction Status Date / Time carisoprodol [From Soma] Allergy Unknown Verified 06/15/20 19:16 cyclobenzaprine Allergy Rash/Hives Verified 06/15/20 19:16 methocarbamol [From Robaxin] Allergy Rash/Hives Verified 06/15/20 19:16 naproxen [From Naprosyn] Allergy Nausea Verified 06/15/20 19:16 orphenadrine [From Norflex] Allergy Vomiting Verified 06/15/20 19:16 peanut Allergy Anaphylaxis Verified 06/15/20 19:16 Pork/Porcine Containing Allergy Rash/Hives Verified 06/15/20 19:16 Products [Pork] rice Allergy Rash/Hives Verified 06/15/20 19:16 tree nut [Nut] Allergy Swelling Verified 06/15/20 19:16 ketorolac [From Toradol] AdvReac Vomiting Verified 06/15/20 19:16 muscle relaxers Allergy Unknown Uncoded 06/15/20 19:16 Review of Systems ROS Statement: Those systems with pertinent positive or pertinent negative responses have been documented in the HPI. ROS Other: All systems not noted in ROS Statement are negative. Past Medical History Past Medical History: Seizure Disorder Additional Past Medical History / Comment(s): cyst on kidney, migraines, back pain, brain tumors, History of Any Multi-Drug Resistant Organisms: None Reported Past Surgical History: Cholecystectomy, Tonsillectomy Past Psychological History: No Psychological Hx Reported Past Alcohol Use History: None Reported Past Drug Use History: None Reported General Exam Limitations: no limitations General appearance: alert, in no apparent distress Head exam: Present: atraumatic, normocephalic, normal inspection Eye exam: Present: normal appearance, PERRL, EOMI. Absent: scleral icterus, conjunctival injection, periorbital swelling ENT exam: Present: normal exam, normal oropharynx, mucous membranes moist Neck exam: Present: normal inspection, full ROM. Absent: tenderness, meningismus, lymphadenopathy Respiratory exam: Present: normal lung sounds bilaterally. Absent: respiratory distress, wheezes, rales, rhonchi, stridor Cardiovascular Exam: Present: regular rate, normal rhythm, normal heart sounds. Absent: systolic murmur, diastolic murmur, rubs, gallop, clicks Extremities exam: Present: other (Lower extremity strength equal bilaterally neurovascular intact) Back exam: Present: normal inspection, full ROM, tenderness (Moderate right paraspinal), muscle spasm (Obvious muscle spasm right lumbar), paraspinal tenderness. Absent: vertebral tenderness Course Vital Signs 06/22/20 13:34 Temperature 98.4 F Pulse Rate 80 Respiratory 18 Rate Blood Pressure 117/83 O2 Sat by Pulse 100 Oximetry Medical Decision Making - Medical Decision Making Patient has noted large muscle spasm in her low back. Patient provided pain relief and discharged with follow-up. Return parameters were discussed. She has no red flag symptoms. Disposition Clinical Impression: Strain of lumbar region, Acute exacerbation of chronic low back pain Disposition: HOME SELF-CARE Condition: Stable Instructions (If sedation given, give patient instructions): Acute Low Back Pain (ED) Additional Instructions: Please return to the Emergency Department if symptoms worsen or any other concerns. Prescriptions: Metaxalone [Skelaxin] 800 mg PO TID #15 tab traMADol HCl [Ultram] 50 mg PO Q6H PRN #12 tab PRN Reason: Pain Is patient prescribed a controlled substance at d/c from ED?: No Referrals: None,Stated [Primary Care Provider] - 1-2 days Time of Disposition: 14:17
== END 2020-06-22 14:19 | disposition home or self-care (01) ==
LOC: EC 13:33
DX: S39.012A Strain of muscle, fascia and tendon of lower back, initial encounter (principal); G89.29 Other chronic pain; M62.830 Muscle spasm of back; Z88.6 Allergy status to analgesic agent; Z88.8 Allergy status to other drugs, medicaments and biological substances; Z91.010 Allergy to peanuts; Z91.018 Allergy to other foods; Z88.5 Allergy status to narcotic agent; X50.9XXA Other and unspecified overexertion or strenuous movements or postures, initial encounter
CPT/HCPCS: 99283

== ENCOUNTER → 2020-06-29 | Outpatient (CLI) | payer OTHER ==
[2020-06-29 12:53] LABS: HCT 35.9 % (34.0-46.0); HGB 11.6 gm/dL (11.4-16.0); MCH 29.7 pg (25.0-35.0); MCHC 32.4 g/dL (31.0-37.0); MCV 91.8 fL (80.0-100.0); Mean Platelet Volume 7.6; Platelet Count 349 k/uL (150-450); RBC 3.91 m/uL (3.80-5.40); RDW 12.5 % (11.5-15.5); WBC 8.7 k/uL (3.8-10.6)
[2020-06-29 18:32] LABS: African American GFR (CKD) 128.3 (60.0-200.0); Non-African American GFR(CKD) 110.7 (60.0-200.0)
[2020-06-29 19:30] LABS: Hepatitis B Surface Antigen Non-Reactive (Non-Reactive)
== END | disposition home or self-care (01) ==
LOC: LABWHC1 10:50
PROVIDERS: ATTEND Obstetrics & Gynecology
DX: Z34.81 Encounter for supervision of other normal pregnancy, first trimester (principal)
CPT/HCPCS: 36415; 82565; 82947; 84702; 85027; 86762; 86780; 86850; 86900; 86901; 87340

== ENCOUNTER 2020-07-05 19:56 | Emergency (ER) | payer OTHER ==
--- NOTE | 2020-07-05 20:12 | ED ---
Back Pain HPI - General Chief Complaint: Back Pain/Injury Stated Complaint: neck pain, back pain Time Seen by Provider: 07/05/20 20:02 Source: patient Limitations: no limitations - History of Present Illness Initial Comments: 39-year-old female patient with past medical history significant for chronic back pain presents to the emergency department today for evaluation of back and leg pain. Patient states that a couple of weeks ago she was walking through [place] with a cart when she felt her back "seize" up. Patient states that the muscles have been very tight to the mid back since. States that she is now having pain radiating down the backs of both her legs. She denies numbness or tingling to the lower extremities. Denies saddle anesthesia or loss of bowel or bladder control. Denies fever or chills. Denies any significant injury. Patient states that she has been trying to get into a primary care physician but she is waiting on insurance authorization. States that she was seen and evaluated here with pain onset was given prescriptions for muscle relaxer and tramadol. States that medication worked very well for her pain. States that she has been trying [id number] Motrin, ice, heat, and stretching without relief. She is hoping for refill of the medications. Patient denies any recent rash, cough, shortness of breath, chest pain, abdominal pain, nausea, vomiting, diarrhea, constipation, dizziness, weakness, hematuria, dysuria, urinary urgency, urinary frequency, headache, visual changes, or any other complaints. - Related Data Previous Rx's Medication Instructions Recorded Ibuprofen [Motrin] 600 mg PO Q8HR PRN #30 tab 12/07/19 Ibuprofen [Motrin] 800 mg PO Q8HR #30 tab 03/24/20 Metaxalone [Skelaxin] 800 mg PO TID #15 tab 06/22/20 traMADol HCl [Ultram] 50 mg PO Q6H PRN #12 tab 06/22/20 Metaxalone [Skelaxin] 400 mg PO Q6H #12 tablet 07/05/20 traMADol HCL [Ultram] 50 mg PO Q6HR PRN 3 Days #12 tab 07/05/20 Allergies Allergy/AdvReac Type Severity Reaction Status Date / Time carisoprodol [From Soma] Allergy Unknown Verified 07/05/20 20:01 cyclobenzaprine Allergy Rash/Hives Verified 07/05/20 20:01 methocarbamol [From Robaxin] Allergy Rash/Hives Verified 07/05/20 20:01 naproxen [From Naprosyn] Allergy Nausea Verified 07/05/20 20:01 orphenadrine [From Norflex] Allergy Vomiting Verified 07/05/20 20:01 peanut Allergy Anaphylaxis Verified 07/05/20 20:01 Pork/Porcine Containing Allergy Rash/Hives Verified 07/05/20 20:01 Products [Pork] rice Allergy Rash/Hives Verified 07/05/20 20:01 tree nut [Nut] Allergy Swelling Verified 07/05/20 20:01 ketorolac [From Toradol] AdvReac Vomiting Verified 07/05/20 20:01 muscle relaxers Allergy Unknown Uncoded 07/05/20 20:01 Review of Systems ROS Statement: Those systems with pertinent positive or pertinent negative responses have been documented in the HPI. ROS Other: All systems not noted in ROS Statement are negative. Past Medical History Past Medical History: Seizure Disorder Additional Past Medical History / Comment(s): cyst on kidney, migraines, back pain, brain tumors, History of Any Multi-Drug Resistant Organisms: None Reported Past Surgical History: Cholecystectomy, Tonsillectomy Past Psychological History: No Psychological Hx Reported Smoking Status: Former smoker Past Alcohol Use History: None Reported Past Drug Use History: None Reported General Exam Limitations: no limitations General appearance: alert, in no apparent distress, other (this is a well- developed, well-nourished adult female patient in no acute distress) Eye exam: Present: normal appearance, PERRL, EOMI. Absent: scleral icterus, conjunctival injection, periorbital swelling ENT exam: Present: normal exam, normal oropharynx, mucous membranes moist Respiratory exam: Present: normal lung sounds bilaterally. Absent: respiratory distress, wheezes, rales, rhonchi, stridor Cardiovascular Exam: Present: regular rate, normal rhythm, normal heart sounds. Absent: systolic murmur, diastolic murmur, rubs, gallop, clicks GI/Abdominal exam: Present: soft, normal bowel sounds. Absent: distended, tenderness, guarding, rebound, rigid Extremities exam: Present: normal inspection, full ROM, normal capillary refill, other (skin to the lower extremities are pink, warm, dry. Cap refills less than 3 seconds. Pedal pulses are 2+ and equal bilaterally.). Absent: tenderness, pe kassi edema, joint swelling, calf tenderness Back exam: Present: normal inspection, muscle spasm (paraspinal muscles), paraspinal tenderness (thoracic) Neurological exam: Present: alert, oriented X3, CN II-XII intact Psychiatric exam: Present: normal affect, normal mood Skin exam: Present: warm, dry, intact, normal color. Absent: rash Course Vital Signs 07/05/20 19:57 Temperature 99 F Pulse Rate 80 Respiratory 18 Rate Blood Pressure 147/92 O2 Sat by Pulse 100 Oximetry Medical Decision Making - Medical Decision Making 39-year-old female patient presents to the emergency department today for evaluation of increased back pain and leg pain. Physical examination was relatively unremarkable. Patient was neurologically intact with no focal deficits. Had good leg strength. Neurovascular status was intact as well. She did have tenderness around the thoracic paraspinal muscles. There is no bony tenderness. She has no concerning symptoms for cauda equina. We will refill pain medications until she is able to follow-up with her primary care physician. Return parameters were discussed in detail. She verbalizes understanding and agrees with this plan. Disposition Clinical Impression: Mechanical back pain Disposition: HOME SELF-CARE Condition: Good Instructions (If sedation given, give patient instructions): Muscle Spasm (ED), Back Pain (ED) Additional Instructions: Continue performing gentle range of motion exercises. Follow-up with primary care physician for recheck as soon as possible. Take medication sparingly as needed when symptoms are severe. Return to the emergency department immediately for any new, worsening, or concerning symptoms. Prescriptions: Metaxalone [Skelaxin] 400 mg PO Q6H #12 tablet traMADol HCL [Ultram] 50 mg PO Q6HR PRN 3 Days #12 tab PRN Reason: Pain Is patient prescribed a controlled substance at d/c from ED?: Yes When asked, does pt state using other controlled substances?: No If prescribed controlled substance>3 days was MAPS reviewed?: Prescribed <3 Days If opioid is for acute pain is fill amount 7 days or less?: Yes If Rx opioid, was Start Talking consent form obtained?: Yes Referrals: None,Stated [Primary Care Provider] - 1-2 days Time of Disposition: 20:11
[2020-07-05] MEDS ORDERED: traMADol 50 MG TAB PO STA (20:13)
[2020-07-05 20:33] VITALS: BP 146/78; PULSE 81; RESP 16; TEMP 98.9
== END 2020-07-05 20:31 | disposition home or self-care (01) ==
LOC: EC 19:56
DX: M54.6 Pain in thoracic spine (principal); M79.605 Pain in left leg; M79.604 Pain in right leg; Z88.6 Allergy status to analgesic agent; Z88.8 Allergy status to other drugs, medicaments and biological substances; Z91.010 Allergy to peanuts; Z91.018 Allergy to other foods; Z87.891 Personal history of nicotine dependence; X50.0XXA Overexertion from strenuous movement or load, initial encounter; Y92.512 Supermarket, store or market as the place of occurrence of the external cause
CPT/HCPCS: 99283

== ENCOUNTER 2020-07-08 13:45 | Emergency (ER) | payer OTHER ==
[2020-07-08 13:54] VITALS: BP 142/87; PULSE 76; RESP 18; TEMP 98.3
[2020-07-08] MEDS ORDERED: traMADol 50 MG STARTER PACK 3 TAB BTL PO STA (14:06)
--- NOTE | 2020-07-08 14:08 | ED ---
Back Pain HPI - General Chief Complaint: Back Pain/Injury Stated Complaint: Back Pain Time Seen by Provider: 07/08/20 13:56 Source: patient Limitations: no limitations - History of Present Illness Initial Comments: Patient is a 39-year-old male presenting to emergency Department with a chief complaint of back pain. States this isn't an issue she has been ongoing for the past several years. Patient states that she seen multiple physicians with no significant improvement in symptoms. Patient states this last episode started several days ago after she was pushing a cart at [facility] and had a sudden onset of pain. States she was in the ED for tramadol which up the pain that has since it return. Patient states she was cutting the pills in half to help extend them. Patient states she was supposed to start seeing a pain specialist but her insurance would not approve it. Patient denies any saddle anesthesia, urinary retention with overflow incontinence or bowel incontinence. Denies any night sweats or chills. - Related Data Previous Rx's Medication Instructions Recorded Ibuprofen [Motrin] 600 mg PO Q8HR PRN #30 tab 12/07/19 Ibuprofen [Motrin] 800 mg PO Q8HR #30 tab 03/24/20 Metaxalone [Skelaxin] 800 mg PO TID #15 tab 06/22/20 traMADol HCl [Ultram] 50 mg PO Q6H PRN #12 tab 06/22/20 Metaxalone [Skelaxin] 400 mg PO Q6H #12 tablet 07/05/20 traMADol HCL [Ultram] 50 mg PO Q6HR PRN 3 Days #12 tab 07/05/20 Ketorolac [Toradol] 10 mg PO Q8HR #7 tab 07/08/20 Allergies Allergy/AdvReac Type Severity Reaction Status Date / Time carisoprodol [From Soma] Allergy Unknown Verified 07/05/20 20:01 cyclobenzaprine Allergy Rash/Hives Verified 07/05/20 20:01 methocarbamol [From Robaxin] Allergy Rash/Hives Verified 07/05/20 20:01 naproxen [From Naprosyn] Allergy Nausea Verified 07/05/20 20:01 orphenadrine [From Norflex] Allergy Vomiting Verified 07/05/20 20:01 peanut Allergy Anaphylaxis Verified 07/05/20 20:01 Pork/Porcine Containing Allergy Rash/Hives Verified 07/05/20 20:01 Products [Pork] rice Allergy Rash/Hives Verified 07/05/20 20:01 tree nut [Nut] Allergy Swelling Verified 07/05/20 20:01 ketorolac [From Toradol] AdvReac Vomiting Verified 07/05/20 20:01 muscle relaxers Allergy Unknown Uncoded 07/05/20 20:01 Review of Systems ROS Statement: Those systems with pertinent positive or pertinent negative responses have been documented in the HPI. ROS Other: All systems not noted in ROS Statement are negative. Past Medical History Past Medical History: Seizure Disorder Additional Past Medical History / Comment(s): cyst on kidney, migraines, back pain, brain tumors, History of Any Multi-Drug Resistant Organisms: None Reported Past Surgical History: Cholecystectomy, Tonsillectomy Past Psychological History: No Psychological Hx Reported Smoking Status: Former smoker Past Alcohol Use History: None Reported Past Drug Use History: None Reported General Exam Limitations: no limitations General appearance: alert, in no apparent distress Head exam: Present: atraumatic, normocephalic, normal inspection Eye exam: Present: normal appearance, PERRL, EOMI Pupils: Present: normal accommodation ENT exam: Present: normal exam, normal oropharynx, mucous membranes moist Neck exam: Present: normal inspection, full ROM. Absent: tenderness Respiratory exam: Present: normal lung sounds bilaterally. Absent: respiratory distress, wheezes Cardiovascular Exam: Present: regular rate, normal rhythm, normal heart sounds GI/Abdominal exam: Present: soft. Absent: distended, tenderness, guarding, rebound Extremities exam: Present: normal inspection, full ROM. Absent: tenderness Back exam: Present: normal inspection, full ROM, tenderness, muscle spasm, paraspinal tenderness (Lumbar region). Absent: vertebral tenderness Neurological exam: Present: alert, oriented X3 Psychiatric exam: Present: normal affect, normal mood Skin exam: Present: warm, dry, intact, normal color Course Vital Signs 07/08/20 13:50 Temperature 98.3 F Pulse Rate 76 Respiratory 18 Rate Blood Pressure 142/87 O2 Sat by Pulse 100 Oximetry Medical Decision Making - Medical Decision Making Patient is a 39-year-old female with chief complaint of back pain. This is acute on chronic back pain. Low suspicion for cauda equina. No red flags. Patient will be discharged with a tramadol starter pack which typically helps her with the pain. She was advised not to drive or operate machinery taking medication. Patient also with a 7 tablets of oral Toradol. She did tolerate this before. Strict return parameters were thoroughly discussed the patient is worsening agreeable. Case discussed with physician. Disposition Clinical Impression: Strain of lumbar region, Mechanical back pain, Acute exacerbation of chronic low back pain Disposition: HOME SELF-CARE Condition: Stable Instructions (If sedation given, give patient instructions): Acute Low Back Pain (ED) Additional Instructions: Take prescribed medication as directed. Follow with her primary care physician. Do not drive or operative heavy machinery when taking the tramadol. Return to emergency department if symptoms worsen. Follow with primary care physician. Prescriptions: Ketorolac [Toradol] 10 mg PO Q8HR #7 tab Is patient prescribed a controlled substance at d/c from ED?: No Referrals: None,Stated [Primary Care Provider] - 1-2 days Time of Disposition: 14:08
== END 2020-07-08 14:11 | disposition home or self-care (01) ==
LOC: EC 13:45
DX: S39.012A Strain of muscle, fascia and tendon of lower back, initial encounter (principal); G89.29 Other chronic pain; Z87.891 Personal history of nicotine dependence; Z88.8 Allergy status to other drugs, medicaments and biological substances; Z88.6 Allergy status to analgesic agent; Z91.010 Allergy to peanuts; Z91.018 Allergy to other foods; Z88.5 Allergy status to narcotic agent; X58.XXXA Exposure to other specified factors, initial encounter
CPT/HCPCS: 99283

== ENCOUNTER 2020-07-10 22:03 | Emergency (ER) | payer OTHER ==
[2020-07-10 22:07] VITALS: BP 136/90; PULSE 73; RESP 16; TEMP 98.7
[2020-07-10] MEDS ORDERED: methylPREDNISolone SOD SUCCI 125 MG/2 ML VIAL IM ONE (22:58)
--- NOTE | 2020-07-10 23:05 | ED ---
Back Pain [facility] - General Chief Complaint: Back Pain/Injury Stated Complaint: Back pain Time Seen by Provider: 07/10/20 22:15 Source: patient Limitations: no limitations - History of Present Illness Initial Comments: This patient is a 39-year-old woman with history of chronic back pain who presents with complaint that she had been doing dishes today and flared up her usual back pain. She indicates the bilateral back from approximate the scapula down to the lumbar area. She states that this also causes her sciatica to flare and she is having some pain to the bilateral legs. The patient states she is due to see Dr. Blanco in September. Patient states that she is not having any change in bladder or bowel function. There is no saddle anesthesia. MD Complaint: back pain -: hour(s) Similar Symptoms Previously: Yes Place: home Radiation: left leg, right leg Severity: severe Quality: dull Consistency: constant Improves With: none Worsens With: movement Context: other (Doing dishes) Associated Symptoms: denies other symptoms - Related Data Previous Rx's Medication Instructions Recorded Ibuprofen [Motrin] 600 mg PO Q8HR PRN #30 tab 12/07/19 Ibuprofen [Motrin] 800 mg PO Q8HR #30 tab 03/24/20 Metaxalone [Skelaxin] 800 mg PO TID #15 tab 06/22/20 traMADol HCl [Ultram] 50 mg PO Q6H PRN #12 tab 06/22/20 Metaxalone [Skelaxin] 400 mg PO Q6H #12 tablet 07/05/20 traMADol HCL [Ultram] 50 mg PO Q6HR PRN 3 Days #12 tab 07/05/20 Ketorolac [Toradol] 10 mg PO Q8HR #7 tab 07/08/20 Diclofenac Sodium 50 mg PO TID #18 tablet. 07/10/20 predniSONE 60 mg PO DAILY #30 tab 07/10/20 Allergies Allergy/AdvReac Type Severity Reaction Status Date / Time carisoprodol [From Soma] Allergy Unknown Verified 07/10/20 22:06 cyclobenzaprine Allergy Rash/Hives Verified 07/10/20 22:06 methocarbamol [From Robaxin] Allergy Rash/Hives Verified 07/10/20 22:06 naproxen [From Naprosyn] Allergy Nausea Verified 07/10/20 22:06 orphenadrine [From Norflex] Allergy Vomiting Verified 07/10/20 22:06 peanut Allergy Anaphylaxis Verified 07/10/20 22:06 Pork/Porcine Containing Allergy Rash/Hives Verified 07/10/20 22:06 Products [Pork] rice Allergy Rash/Hives Verified 07/10/20 22:06 tree nut [Nut] Allergy Swelling Verified 07/10/20 22:06 ketorolac [From Toradol] AdvReac Vomiting Verified 07/10/20 22:06 muscle relaxers Allergy Unknown Uncoded 07/10/20 22:06 Review of Systems ROS Statement: Those systems with pertinent positive or pertinent negative responses have been documented in the HPI. ROS Other: All systems not noted in ROS Statement are negative. Constitutional: Denies: fever, chills, weakness Respiratory: Denies: cough, dyspnea Cardiovascular: Denies: chest pain Gastrointestinal: Denies: abdominal pain, diarrhea, constipation Genitourinary: Denies: dysuria, frequency, hematuria Musculoskeletal: Reports: as per HPI, back pain Skin: Denies: rash Neurological: Denies: headache, weakness, numbness Past Medical History Past Medical History: Seizure Disorder Additional Past Medical History / Comment(s): cyst on kidney, migraines, back pain, brain tumors, History of Any Multi-Drug Resistant Organisms: None Reported Past Surgical History: Cholecystectomy, Tonsillectomy Past Psychological History: No Psychological Hx Reported Smoking Status: Former smoker Past Alcohol Use History: None Reported Past Drug Use History: None Reported General Exam Limitations: no limitations General appearance: alert, in no apparent distress Neck exam: Present: normal inspection, full ROM. Absent: tenderness Respiratory exam: Present: normal lung sounds bilaterally. Absent: respiratory distress, wheezes, rales, rhonchi, stridor Cardiovascular Exam: Present: regular rate, normal rhythm, normal heart sounds. Absent: systolic murmur, diastolic murmur, rubs, gallop GI/Abdominal exam: Present: soft. Absent: distended, tenderness, guarding, rebound, rigid, mass Extremities exam: Present: normal inspection, normal capillary refill. Absent: pedal edema, calf tenderness Back exam: Present: normal inspection, paraspinal tenderness. Absent: CVA tenderness (R), CVA tenderness (L), vertebral tenderness Neurological exam: Present: alert, normal gait, reflexes normal. Absent: motor sensory deficit Skin exam: Present: warm, dry, intact, normal color. Absent: rash Course Vital Signs 07/10/20 22:05 Temperature 98.7 F Pulse Rate 73 Respiratory 16 Rate Blood Pressure 136/90 O2 Sat by Pulse 100 Oximetry Medical Decision Making - Medical Decision Making MAPS review reveals concerning pattern of providers and pharmacys located across a broad area of the [place]. I have concerns about prescribing any narcotic medication given this pattern Disposition Clinical Impression: Mechanical back pain Disposition: HOME SELF-CARE Condition: Good Instructions (If sedation given, give patient instructions): Acute Low Back Pain (ED) Prescriptions: Diclofenac Sodium 50 mg PO TID #18 tablet. predniSONE 60 mg PO DAILY #30 tab Is patient prescribed a controlled substance at d/c from ED?: No Referrals: None,Stated [Primary Care Provider] - 1-2 days
== END 2020-07-10 23:32 | disposition home or self-care (01) ==
LOC: EC 22:03
DX: M54.9 Dorsalgia, unspecified (principal); M79.605 Pain in left leg; M79.604 Pain in right leg; Z87.891 Personal history of nicotine dependence; Z88.6 Allergy status to analgesic agent; Z91.010 Allergy to peanuts; Z91.018 Allergy to other foods; Z88.1 Allergy status to other antibiotic agents; Z88.8 Allergy status to other drugs, medicaments and biological substances
CPT/HCPCS: 96372; 99283

== ENCOUNTER 2020-07-13 11:10 | Emergency (ER) | payer OTHER ==
[2020-07-13 11:19] VITALS: BP 115/82; PULSE 82; RESP 18; TEMP 98.6
[2020-07-13] MEDS ORDERED: traMADol 50 MG STARTER PACK 3 TAB BTL PO STA (11:38)
--- NOTE | 2020-07-13 11:41 | ED ---
Back Pain HPI - General Chief Complaint: Back Pain/Injury Stated Complaint: back pain Time Seen by Provider: 07/13/20 11:29 Source: patient Limitations: no limitations - History of Present Illness Initial Comments: 39 year old female presenting today for chief complaint of entire back pain patient states that she's had pain for shoulder sore low back she states that increases with moving or twisting she states it's been ongoing for over 1 year. She states that she has an upcoming MRI, states that she takes tramadol as needed for pain but is out. Patient states that she is currently working to find a PCP. Patient denies fevers, loss of bowel bladder control, urinary retentions or weakness of the LE. Patient denies falls trauma. Denies cancer or IVDU. Admits to benign brain tumor history. Patient has no additional complaints. She appears well nontoxic on arrival in no acute distress. - Related Data Previous Rx's Medication Instructions Recorded Ibuprofen [Motrin] 600 mg PO Q8HR PRN #30 tab 12/07/19 Ibuprofen [Motrin] 800 mg PO Q8HR #30 tab 03/24/20 Metaxalone [Skelaxin] 800 mg PO TID #15 tab 06/22/20 traMADol HCl [Ultram] 50 mg PO Q6H PRN #12 tab 06/22/20 Metaxalone [Skelaxin] 400 mg PO Q6H #12 tablet 07/05/20 traMADol HCL [Ultram] 50 mg PO Q6HR PRN 3 Days #12 tab 07/05/20 Ketorolac [Toradol] 10 mg PO Q8HR #7 tab 07/08/20 Diclofenac Sodium 50 mg PO TID #18 tablet. 07/10/20 predniSONE 60 mg PO DAILY #30 tab 07/10/20 Allergies Allergy/AdvReac Type Severity Reaction Status Date / Time carisoprodol [From Soma] Allergy Unknown Verified 07/13/20 11:18 cyclobenzaprine Allergy Rash/Hives Verified 07/13/20 11:18 methocarbamol [From Robaxin] Allergy Rash/Hives Verified 07/13/20 11:18 naproxen [From Naprosyn] Allergy Nausea Verified 07/13/20 11:18 orphenadrine [From Norflex] Allergy Vomiting Verified 07/13/20 11:18 peanut Allergy Anaphylaxis Verified 07/13/20 11:18 Pork/Porcine Containing Allergy Rash/Hives Verified 07/13/20 11:18 Products [Pork] rice Allergy Rash/Hives Verified 07/13/20 11:18 tree nut [Nut] Allergy Swelling Verified 07/13/20 11:18 ketorolac [From Toradol] AdvReac Vomiting Verified 07/13/20 11:18 muscle relaxers Allergy Unknown Uncoded 07/10/20 22:06 Review of Systems ROS Statement: Those systems with pertinent positive or pertinent negative responses have been documented in the HPI. ROS Other: All systems not noted in ROS Statement are negative. Past Medical History Past Medical History: Seizure Disorder Additional Past Medical History / Comment(s): cyst on kidney, migraines, back pain, brain tumors, History of Any Multi-Drug Resistant Organisms: None Reported Past Surgical History: Cholecystectomy, Tonsillectomy Past Psychological History: No Psychological Hx Reported Smoking Status: Former smoker Past Alcohol Use History: None Reported Past Drug Use History: None Reported General Exam - General Exam Comments Initial Comments: General: The patient is awake and alert, in no distress, and does not appear acutely ill. Eye: +3 mm pupils are equal, round and reactive to light, extra-ocular movements are intact. No nystagmus. There is normal conjunctiva bilaterally. No signs of icterus. Ears, nose, mouth and throat: There are moist mucous membranes and no oral lesions. Neck: The neck is supple, there is no tenderness or JVD. Cardiovascular: There is a regular rate and rhythm. No murmur, rub or gallop is appreciated. Respiratory: Lungs are clear to auscultation, respirations are non-labored, breath sounds are equal. No wheezes, stridor, rales, or rhonchi. Gastrointestinal: Soft, non-distended, non-tender abdomen without masses or organomegaly noted. There is no rebound or guarding present. No CVA tenderness. Musculoskeletal: There is some tenderness to palpation of the para spinal muscles of the thoracic and lumbar spine. Patient lifts arms or twists torso stating this increases the pain. Normal ROM, no tenderness of the UE and LE b/l. Strength 5/5 of the UE and LE equal b/l. Sensation intact of the UE and LE equal b/l including the saddle region. Raidal and DP pulses equal bilaterally 2+. Neurological: A&O x 3. CN II-XII intact grossly, There are no obvious motor or sensory deficits. Coordination appears grossly intact. Speech is normal. Skin: Skin is warm and dry and no rashes or lesions are noted. Psychiatric: Cooperative, appropriate mood & affect, normal judgment. Limitations: no limitations Course Vital Signs 07/13/20 11:15 Temperature 98.6 F Pulse Rate 82 Respiratory 18 Rate Blood Pressure 115/82 O2 Sat by Pulse 98 Oximetry Medical Decision Making - Medical Decision Making 39yo male presenting today for cc of back pain, states chronic out of medications, denies new changes or acute injury. Reproducible on exam. Patient states she has MRI coming up. Attempting to establish PCP. Patient neurovascularly intact. Patient appears well nontoxic in no distress. ambulating without difficulty. Patient state she does not want new imaging. Pt treated symptomatically an discharged appearing well. Disposition Clinical Impression: Low back pain, Chronic back pain Disposition: HOME SELF-CARE Condition: Good Instructions (If sedation given, give patient instructions): Acute Low Back Pain (ED) Additional Instructions: Please use medication as discussed. Please follow-up with family doctor in the next 2 days. Recommend seeing orthopedic spine if symptoms persist. Please return to emergency room if the symptoms increase or worsen or for any other concerns. Is patient prescribed a controlled substance at d/c from ED?: No Referrals: None,Stated [Primary Care Provider] - 1-2 days [facility] [NON[facility]] - 1-2 days Time of Disposition: 11:41
== END 2020-07-13 11:50 | disposition home or self-care (01) ==
LOC: EC 11:10
DX: G89.29 Other chronic pain (principal); M54.5 Low back pain; Z91.010 Allergy to peanuts; Z88.8 Allergy status to other drugs, medicaments and biological substances; Z88.6 Allergy status to analgesic agent; Z91.018 Allergy to other foods; Z87.891 Personal history of nicotine dependence
CPT/HCPCS: 99283

== ENCOUNTER 2020-08-02 09:26 | Emergency (ER) | payer OTHER ==
[2020-08-02 09:49] VITALS: BP 127/85; PULSE 72; RESP 18; TEMP 97.8
[2020-08-02] MEDS ORDERED: traMADol 50 MG STARTER PACK 3 TAB BTL PO STA (10:14)
[2020-08-02] MEDS ORDERED: IBUPROFEN 600 MG STARTER PACK 4 TAB BTL PO STA (10:14)
--- NOTE | 2020-08-02 10:21 | ED ---
Back Pain HPI - General Chief Complaint: Back Pain/Injury Stated Complaint: back pain, headache Time Seen by Provider: 08/02/20 10:05 Source: patient, RN notes reviewed, old records reviewed Limitations: no limitations - History of Present Illness Initial Comments: Patient is a 39-year-old female presents to the ER today for evaluation for chronic back pain. She reports she has spasms to the lower lumbar areas and does report occasional shooting pain on the left leg. Patient states that she's had this chronic pain for months. She's been to the emergency department 5 time s for this pain within the past month. Patient states that she is scheduling MRIs with family centered specialist as well as try to establish care with a PCP. She states that she will smile and she is having trouble with establishing PCP care due to insurance issues. Patient states that she has had no recent falls or trauma. She denies saddle anesthesia. She denies any fevers or chills, dysuria hematuria or abdominal pain. - Related Data Previous Rx's Medication Instructions Recorded Ibuprofen [Motrin] 600 mg PO Q8HR PRN #30 tab 12/07/19 Ibuprofen [Motrin] 800 mg PO Q8HR #30 tab 03/24/20 Metaxalone [Skelaxin] 800 mg PO TID #15 tab 06/22/20 traMADol HCl [Ultram] 50 mg PO Q6H PRN #12 tab 06/22/20 Metaxalone [Skelaxin] 400 mg PO Q6H #12 tablet 07/05/20 traMADol HCL [Ultram] 50 mg PO Q6HR PRN 3 Days #12 tab 07/05/20 Ketorolac [Toradol] 10 mg PO Q8HR #7 tab 07/08/20 Diclofenac Sodium 50 mg PO TID #18 tablet. 07/10/20 predniSONE 60 mg PO DAILY #30 tab 07/10/20 Diclofenac Sodium 50 mg PO BID #18 tablet. 08/02/20 traMADol HCL [Ultram] 50 mg PO Q6HR PRN 3 Days #12 tab 08/02/20 Allergies Allergy/AdvReac Type Severity Reaction Status Date / Time carisoprodol [From Soma] Allergy Unknown Verified 08/02/20 09:50 cyclobenzaprine Allergy Rash/Hives Verified 08/02/20 09:50 methocarbamol [From Robaxin] Allergy Rash/Hives Verified 08/02/20 09:50 naproxen [From Naprosyn] Allergy Nausea Verified 08/02/20 09:50 orphenadrine [From Norflex] Allergy Vomiting Verified 08/02/20 09:50 peanut Allergy Anaphylaxis Verified 08/02/20 09:50 Pork/Porcine Containing Allergy Rash/Hives Verified 08/02/20 09:50 Products [Pork] rice Allergy Rash/Hives Verified 08/02/20 09:50 tree nut [Nut] Allergy Swelling Verified 08/02/20 09:50 ketorolac [From Toradol] AdvReac Vomiting Verified 08/02/20 09:50 muscle relaxers Allergy Unknown Uncoded 08/02/20 09:50 Review of Systems ROS Statement: Those systems with pertinent positive or pertinent negative responses have been documented in the HPI. ROS Other: All systems not noted in ROS Statement are negative. Past Medical History Past Medical History: Seizure Disorder Additional Past Medical History / Comment(s): cyst on kidney, migraines, back pain, brain tumors, History of Any Multi-Drug Resistant Organisms: None Reported Past Surgical History: Cholecystectomy, Tonsillectomy Past Psychological History: No Psychological Hx Reported Smoking Status: Former smoker Past Alcohol Use History: None Reported Past Drug Use History: None Reported General Exam - General Exam Comments Initial Comments: 39-year-old female. Alert and oriented. No significant distress. Limitations: no limitations General appearance: alert Head exam: Present: atraumatic, normocephalic, normal inspection Eye exam: Present: normal appearance, PERRL, EOMI. Absent: scleral icterus, conjunctival injection, periorbital swelling ENT exam: Present: normal exam, mucous membranes moist Neck exam: Present: normal inspection. Absent: tenderness, meningismus, lymphadenopathy Respiratory exam: Present: normal lung sounds bilaterally. Absent: respiratory distress, wheezes, rales, rhonchi, stridor Cardiovascular Exam: Present: regular rate, normal rhythm, normal heart sounds. Absent: systolic murmur, diastolic murmur, rubs, gallop, clicks Extremities exam: Present: normal inspection, full ROM, normal capillary refill. Absent: tenderness, pedal edema, joint swelling, calf tenderness Back exam: Present: normal inspection, paraspinal tenderness (Lumbar paraspinal muscle tenderness bilaterally. No rashes. No bruising.) Neurological exam: Present: alert, oriented X3, CN II-XII intact Psychiatric exam: Present: normal affect, normal mood Skin exam: Present: warm, dry, intact, normal color. Absent: rash Course Vital Signs 08/02/20 09:47 Temperature 97.8 F Pulse Rate 72 Respiratory 18 Rate Blood Pressure 127/85 O2 Sat by Pulse 98 Oximetry Medical Decision Making - Medical Decision Making Patient is a 39-year-old female who presents to the ER today for evaluation for chronic lower back pain. She reports the pain gets severe symptoms will cause headache. She spends emergency room in 5 times for similar complaints requesting refills for Ultram. Patient at this time has no red flag symptoms to deny saddle anesthesias or fall or trauma. Patient was offered IM pain medications that she declined and only wants oral. Patient had maps report ran and has not had prescription in one month. We'll give the Patient in short prescription of Ultram and she needs follow-up with further PCPs back specialist. Patient is agreeable to treatment plan will comply. Disposition Clinical Impression: Chronic back pain Disposition: HOME SELF-CARE Condition: Stable Prescriptions: Diclofenac Sodium 50 mg PO BID #18 tablet. traMADol HCL [Ultram] 50 mg PO Q6HR PRN 3 Days #12 tab PRN Reason: Pain Is patient prescribed a controlled substance at d/c from ED?: No Referrals: None,Stated [Primary Care Provider] - 1-2 days Giuseppe Lawrence DO [Doctor of Osteopathic Medicine] - 1-2 days Dong Lopez MD [REFERRING] - 1-2 days Time of Disposition: 10:17
== END 2020-08-02 10:42 | disposition home or self-care (01) ==
LOC: EC 09:26
DX: G89.29 Other chronic pain (principal); M54.5 Low back pain; R51 Headache; Z91.018 Allergy to other foods; Z88.8 Allergy status to other drugs, medicaments and biological substances; Z88.6 Allergy status to analgesic agent; Z91.010 Allergy to peanuts; Z87.891 Personal history of nicotine dependence
CPT/HCPCS: 99284

== ENCOUNTER 2020-08-13 18:59 | Emergency (ER) | payer OTHER ==
[2020-08-13 19:12] VITALS: BP 136/81; PULSE 88; RESP 18; TEMP 99
[2020-08-13] MEDS ORDERED: traMADol 50 MG STARTER PACK 3 TAB BTL PO STA (19:24)
--- NOTE | 2020-08-13 19:25 | ED ---
Back Pain [facility] - General Chief Complaint: Back Pain/Injury Stated Complaint: Back pain Time Seen by Provider: 08/13/20 19:13 Source: patient Limitations: no limitations - History of Present Illness Initial Comments: 39-year-old female past history of benign brain tumors, chronic back pain, renal cyst presenting to the emergency department today for chief complaint of burning back pain from upper back to tailbone. Patient states the pain has been there for over a year. She states that she has had outpatient MRIs and is currently attempting to get in with a painter airbrush she states she does begin physical therapy next week. Patient states that tramadol normally works for her pain she states she is out of her prescription. She states she has not been able to get a prescription from her primary care provider. Patient denies any loss of bowel bladder control weakness sensation deficits. She denies any urinary retention or incontinence. Patient denies IV drug use fevers. She denies any new characteristic of the pain. Patient states she is not a falls or direct trauma she denies IV drug use. Patient has no additional complaints. She states she did not want any workup today she states she simply presented for pain management as she cannot sleep secondary to the back pain. Patient appears nontoxic on arrival she is ambulatory - Related Data Previous Rx's Medication Instructions Recorded Ibuprofen [Motrin] 600 mg PO Q8HR PRN #30 tab 12/07/19 Ibuprofen [Motrin] 800 mg PO Q8HR #30 tab 03/24/20 Metaxalone [Skelaxin] 800 mg PO TID #15 tab 06/22/20 traMADol HCl [Ultram] 50 mg PO Q6H PRN #12 tab 06/22/20 Metaxalone [Skelaxin] 400 mg PO Q6H #12 tablet 07/05/20 traMADol HCL [Ultram] 50 mg PO Q6HR PRN 3 Days #12 tab 07/05/20 Ketorolac [Toradol] 10 mg PO Q8HR #7 tab 07/08/20 Diclofenac Sodium 50 mg PO TID #18 tablet. 07/10/20 predniSONE 60 mg PO DAILY #30 tab 07/10/20 Diclofenac Sodium 50 mg PO BID #18 tablet. 08/02/20 traMADol HCL [Ultram] 50 mg PO Q6HR PRN 3 Days #12 tab 08/02/20 Allergies Allergy/AdvReac Type Severity Reaction Status Date / Time carisoprodol [From Soma] Allergy Unknown Verified 08/13/20 19:12 cyclobenzaprine Allergy Rash/Hives Verified 08/13/20 19:12 methocarbamol [From Robaxin] Allergy Rash/Hives Verified 08/13/20 19:12 naproxen [From Naprosyn] Allergy Nausea Verified 08/13/20 19:12 orphenadrine [From Norflex] Allergy Vomiting Verified 08/13/20 19:12 peanut Allergy Anaphylaxis Verified 08/13/20 19:12 Pork/Porcine Containing Allergy Rash/Hives Verified 08/13/20 19:12 Products [Pork] rice Allergy Rash/Hives Verified 08/13/20 19:12 tree nut [Nut] Allergy Swelling Verified 08/13/20 19:12 ketorolac [From Toradol] AdvReac Vomiting Verified 08/13/20 19:12 muscle relaxers Allergy Unknown Uncoded 08/13/20 19:12 Review of Systems ROS Statement: Those systems with pertinent positive or pertinent negative responses have been documented in the HPI. ROS Other: All systems not noted in ROS Statement are negative. Past Medical History Past Medical History: Seizure Disorder Additional Past Medical History / Comment(s): cyst on kidney, migraines, back pain, brain tumors, History of Any Multi-Drug Resistant Organisms: None Reported Past Surgical History: Cholecystectomy, Tonsillectomy Past Psychological History: Anxiety Smoking Status: Former smoker Past Alcohol Use History: None Reported Past Drug Use History: None Reported General Exam - General Exam Comments Initial Comments: General: The patient is awake and alert, in no distress, and does not appear acutely ill. Eye: Pupils are equal, round and reactive to light, extra-ocular movements are intact. No nystagmus. There is normal conjunctiva bilaterally. No signs of icterus. Cardiovascular: There is a regular rate and rhythm. No murmur, rub or gallop is appreciated. Respiratory: Lungs are clear to auscultation, respirations are non-labored, breath sounds are equal. No wheezes, stridor, rales, or rhonchi. Gastrointestinal: Soft, non-distended, non-tender abdomen without masses or organomegaly noted. There is no rebound or guarding present Musculoskeletal: Normal inspection of the cervical thoracic and lumbar spine. No midline tenderness mostly paraspinal with rate is pain in the lumbar spine. Normal ROM, no tenderness. Strength 5/5of the LE b/l. Sensation intact of the LE b/l. Pulses equal bilaterally 2+. Neurological: A&O x 3. CN II-XII intact grossly, There are no obvious motor or sensory deficits. Coordination appears grossly intact. Speech is normal. Skin: Skin is warm and dry and no rashes or lesions are noted. Psychiatric: Cooperative, appropriate mood & affect, normal judgment. Limitations: no limitations Course Vital Signs 08/13/20 19:06 Temperature 99 F Pulse Rate 88 Respiratory 18 Rate Blood Pressure 136/81 O2 Sat by Pulse 99 Oximetry Medical Decision Making - Medical Decision Making Pt refused imaging studies. Patient exam no concerning red flags, nor on history taking. Patient states pain is chronic without acute changes. Patient given starter pack of tramadol. Recommend following up with PCP and going to PT as prescribed. Return parameters/red flags discussed and patient was discharged appearing well. Disposition Clinical Impression: Chronic back pain Disposition: HOME SELF-CARE Condition: Good Instructions (If sedation given, give patient instructions): Chronic Pain (ED) Additional Instructions: Please use medication as discussed. Please follow-up with family doctor in the next 2 days. Please return to emergency room if the symptoms increase or worsen or for any other concerns. Is patient prescribed a controlled substance at d/c from ED?: No Referrals: None,Stated [Primary Care Provider] - 1-2 days Time of Disposition: 19:25
== END 2020-08-13 19:45 | disposition home or self-care (01) ==
LOC: EC 18:59
DX: G89.29 Other chronic pain (principal); M54.5 Low back pain; Z88.8 Allergy status to other drugs, medicaments and biological substances; Z88.6 Allergy status to analgesic agent; Z91.010 Allergy to peanuts; Z91.018 Allergy to other foods; Z87.891 Personal history of nicotine dependence
CPT/HCPCS: 99283

== ENCOUNTER 2020-08-15 13:07 | Emergency (ER) | payer OTHER ==
[2020-08-15 13:25] VITALS: BP 119/81; PULSE 78; RESP 18; TEMP 98.9
[2020-08-15] MEDS ORDERED: ACETAMINOPHEN TAB 325 MG TAB PO STA (13:40)
[2020-08-15] MEDS ORDERED: methylPREDNISolone SOD SUCCI 125 MG/2 ML VIAL IM STA (13:40)
--- NOTE | 2020-08-15 13:47 | ED ---
General Adult HPI - General Chief complaint: Back Pain/Injury Stated complaint: Lumbar Pain Time Seen by Provider: 08/15/20 13:34 Source: patient Mode of arrival: ambulatory Limitations: no limitations - History of Present Illness Initial comments: 39-year-old female with a past medical history of seizure disorder, chronic back pain, migraines presents to the emergency department for a chief complaint of back pain. Patient states she always has back pain. Patient reports that she was lying on the ground working on pumpkins with her children. She went to stand up and felt the pain in her back. Patient reports that this pain is similar to previous pain. It is radiating into her right buttock. Patient states it is painful to walk but denies any weakness of the legs. Denies blood or bowel changes, numbness or tingling in the lower extremities, saddle anesthesia, or fevers. Patient reports she was here of couple days ago for the same problem and had a tramadol starter pack. States that she is out and would like a refill. Patient states she is still trying to get into pain management.Patient has no other complaints at this time including shortness of breath, chest pain, abdominal pain, nausea or vomiting, headache, or visual changes. - Related Data Previous Rx's Medication Instructions Recorded Ibuprofen [Motrin] 600 mg PO Q8HR PRN #30 tab 12/07/19 Ibuprofen [Motrin] 800 mg PO Q8HR #30 tab 03/24/20 Metaxalone [Skelaxin] 800 mg PO TID #15 tab 06/22/20 traMADol HCl [Ultram] 50 mg PO Q6H PRN #12 tab 06/22/20 Metaxalone [Skelaxin] 400 mg PO Q6H #12 tablet 07/05/20 traMADol HCL [Ultram] 50 mg PO Q6HR PRN 3 Days #12 tab 07/05/20 Ketorolac [Toradol] 10 mg PO Q8HR #7 tab 07/08/20 Diclofenac Sodium 50 mg PO TID #18 tablet. 07/10/20 predniSONE 60 mg PO DAILY #30 tab 07/10/20 Diclofenac Sodium 50 mg PO BID #18 tablet. 08/02/20 traMADol HCL [Ultram] 50 mg PO Q6HR PRN 3 Days #12 tab 08/02/20 predniSONE 50 mg PO DAILY #5 tablet 08/15/20 Allergies Allergy/AdvReac Type Severity Reaction Status Date / Time carisoprodol [From Soma] Allergy Unknown Verified 08/15/20 13:23 cyclobenzaprine Allergy Rash/Hives Verified 08/15/20 13:23 methocarbamol [From Robaxin] Allergy Rash/Hives Verified 08/15/20 13:23 naproxen [From Naprosyn] Allergy Nausea Verified 08/15/20 13:23 orphenadrine [From Norflex] Allergy Vomiting Verified 08/15/20 13:23 peanut Allergy Anaphylaxis Verified 08/15/20 13:23 Pork/Porcine Containing Allergy Rash/Hives Verified 08/15/20 13:23 Products [Pork] rice Allergy Rash/Hives Verified 08/15/20 13:23 tree nut [Nut] Allergy Swelling Verified 08/15/20 13:23 ketorolac [From Toradol] AdvReac Vomiting Verified 08/15/20 13:23 muscle relaxers Allergy Unknown Uncoded 08/15/20 13:23 Review of Systems ROS Statement: Those systems with pertinent positive or pertinent negative responses have been documented in the HPI. ROS Other: All systems not noted in ROS Statement are negative. Past Medical History Past Medical History: Seizure Disorder Additional Past Medical History / Comment(s): cyst on kidney, migraines, back pain, brain tumors, History of Any Multi-Drug Resistant Organisms: None Reported Past Surgical History: Cholecystectomy, Tonsillectomy Past Psychological History: Anxiety Smoking Status: Former smoker Past Alcohol Use History: None Reported Past Drug Use History: None Reported General Exam Limitations: no limitations General appearance: alert, in no apparent distress Head exam: Present: atraumatic, normocephalic, normal inspection Eye exam: Present: normal appearance, PERRL, EOMI. Absent: scleral icterus, conjunctival injection, periorbital swelling ENT exam: Present: normal exam, mucous membranes moist Neck exam: Present: normal inspection, full ROM. Absent: tenderness, meningismus, lymphadenopathy Respiratory exam: Present: normal lung sounds bilaterally. Absent: respiratory distress, wheezes, rales, rhonchi, stridor Cardiovascular Exam: Present: regular rate, normal rhythm, normal heart sounds. Absent: systolic murmur, diastolic murmur, rubs, gallop, clicks GI/Abdominal exam: Present: soft, normal bowel sounds. Absent: distended, tenderness, guarding, rebound, rigid Extremities exam: Present: full ROM (Full range of motion of the right lower extremity.), normal capillary refill (Capillary refill less than 2 seconds, DP pulse 2+ in the right lower extremity.), other (Sensation intact in the right lower extremity, patient able to move all toes.). Absent: joint swelling (No swelling of the right lower extremity.), calf tenderness Back exam: Present: paraspinal tenderness (Right-sided paraspinal tenderness.). Absent: CVA tenderness (R), CVA tenderness (L), vertebral tenderness (No lumbar spine tenderness.) Neurological exam: Present: alert Psychiatric exam: Present: normal affect, normal mood Course Vital Signs 08/15/20 13:22 Temperature 98.9 F Pulse Rate 78 Respiratory 18 Rate Blood Pressure 119/81 O2 Sat by Pulse 99 Oximetry Medical Decision Making - Medical Decision Making Patient presents for chronic back pain requesting another tramadol starter pack. She has no red flag symptoms. I did discuss with patient that she will need to follow up with her doctor for any additional opioid medications. I did offer Tylenol and steroid course to patient which she does agree to. She states that she is going to follow up with pain management and physical therapy. She is aware of red flags that would require her to return to the emergency room. She will otherwise follow-up with her doctor. Patient has had several previous MRIs because of this pain. Disposition Clinical Impression: Acute exacerbation of chronic low back pain Disposition: HOME SELF-CARE Condition: Good Instructions (If sedation given, give patient instructions): Lower Back Exercises (ED) Additional Instructions: Please take Tylenol for pain with steroid. Please follow-up with primary care in 1-2 days. If you have any bladder or bowel changes, numbness or tingling of the groin or buttock, or fevers return to the emergency room. Prescriptions: predniSONE 50 mg PO DAILY #5 tablet Is patient prescribed a controlled substance at d/c from ED?: No Referrals: None,Stated [Primary Care Provider] - 1-2 days Time of Disposition: 13:41
== END 2020-08-15 13:53 | disposition home or self-care (01) ==
LOC: EC 13:07
DX: G89.29 Other chronic pain (principal); M54.5 Low back pain; Z88.8 Allergy status to other drugs, medicaments and biological substances; Z88.6 Allergy status to analgesic agent; Z91.010 Allergy to peanuts; Z91.018 Allergy to other foods; Z87.891 Personal history of nicotine dependence
CPT/HCPCS: 99283

== ENCOUNTER 2020-08-28 10:18 | Emergency (ER) | payer OTHER ==
[2020-08-28 10:26] VITALS: BP 140/90; PULSE 72; RESP 18; TEMP 99.5
--- NOTE | 2020-08-28 10:42 | ED ---
Back Pain HPI - General Chief Complaint: Back Pain/Injury Stated Complaint: back pain Time Seen by Provider: 08/28/20 10:30 Source: patient, RN notes reviewed Limitations: no limitations - History of Present Illness Initial Comments: 39-year-old female presented for chronic low back pain. Patient has been physical therapy centimeters we can have states that her pain is increased. She was warned that this was increasing her pain. Patient has had recent MRI which shows increasing tumors in which she is known about. Patient denies any open, to retention. No saddle anesthesias. Patient's primary pain is in her low back. She states that she has an appointment with pain management and will appear in September. Patient also does scheduled follow-up with orthopedic physi mirtha along with Dr. Carvajal neurosurgery - Related Data Previous Rx's Medication Instructions Recorded Ibuprofen [Motrin] 600 mg PO Q8HR PRN #30 tab 12/07/19 Ibuprofen [Motrin] 800 mg PO Q8HR #30 tab 03/24/20 Metaxalone [Skelaxin] 800 mg PO TID #15 tab 06/22/20 Metaxalone [Skelaxin] 400 mg PO Q6H #12 tablet 07/05/20 traMADol HCL [Ultram] 50 mg PO Q6HR PRN 3 Days #12 tab 07/05/20 Ketorolac [Toradol] 10 mg PO Q8HR #7 tab 07/08/20 Diclofenac Sodium 50 mg PO TID #18 tablet. 07/10/20 predniSONE 60 mg PO DAILY #30 tab 07/10/20 Diclofenac Sodium 50 mg PO BID #18 tablet. 08/02/20 traMADol HCL [Ultram] 50 mg PO Q6HR PRN 3 Days #12 tab 08/02/20 predniSONE 50 mg PO DAILY #5 tablet 08/15/20 traMADol HCl [Ultram] 50 mg PO Q6H PRN #12 tab 08/28/20 Allergies Allergy/AdvReac Type Severity Reaction Status Date / Time carisoprodol [From Soma] Allergy Unknown Verified 08/28/20 10:25 cyclobenzaprine Allergy Rash/Hives Verified 08/28/20 10:25 methocarbamol [From Robaxin] Allergy Rash/Hives Verified 08/28/20 10:25 naproxen [From Naprosyn] Allergy Nausea Verified 08/28/20 10:25 orphenadrine [From Norflex] Allergy Vomiting Verified 08/28/20 10:25 peanut Allergy Anaphylaxis Verified 08/28/20 10:25 Pork/Porcine Containing Allergy Rash/Hives Verified 08/28/20 10:25 Products [Pork] rice Allergy Rash/Hives Verified 08/28/20 10:25 tree nut [Nut] Allergy Swelling Verified 08/28/20 10:25 ketorolac [From Toradol] AdvReac Vomiting Verified 08/28/20 10:25 muscle relaxers Allergy Unknown Uncoded 08/28/20 10:25 Review of Systems ROS Statement: Those systems with pertinent positive or pertinent negative responses have been documented in the HPI. ROS Other: All systems not noted in ROS Statement are negative. Past Medical History Past Medical History: Seizure Disorder Additional Past Medical History / Comment(s): cyst on kidney, migraines, back pain, brain tumors, History of Any Multi-Drug Resistant Organisms: None Reported Past Surgical History: Cholecystectomy, Tonsillectomy Past Psychological History: Anxiety Smoking Status: Former smoker Past Alcohol Use History: None Reported Past Drug Use History: None Reported General Exam Limitations: no limitations General appearance: alert, in no apparent distress Head exam: Present: atraumatic, normocephalic, normal inspection Eye exam: Present: normal appearance, PERRL, EOMI. Absent: scleral icterus, conjunctival injection, periorbital swelling Respiratory exam: Present: normal lung sounds bilaterally. Absent: respiratory distress, wheezes, rales, rhonchi, stridor Cardiovascular Exam: Present: regular rate, normal rhythm, normal heart sounds. Absent: systolic murmur, diastolic murmur, rubs, gallop, clicks Extremities exam: Present: normal inspection, full ROM, normal capillary refill. Absent: tenderness, pedal edema, joint swelling, calf tenderness Back exam: Present: full ROM, tenderness, paraspinal tenderness. Absent: vertebral tenderness Neurological exam: Present: reflexes normal. Absent: motor sensory deficit Course Vital Signs 08/28/20 10:24 Temperature 99.5 F Pulse Rate 72 Respiratory 18 Rate Blood Pressure 140/90 O2 Sat by Pulse 99 Oximetry Medical Decision Making - Medical Decision Making 39-year-old has chronic back issues she's had recommended that she is follow-up with pain management for further medications she's had multiple ER visits. Patient agrees and understands concerns. Patient does have schedule appointments. Disposition Clinical Impression: Chronic back pain Disposition: HOME SELF-CARE Condition: Stable Instructions (If sedation given, give patient instructions): Acute Low Back Pain (ED) Additional Instructions: Please return to the Emergency Department if symptoms worsen or any other concerns. Prescriptions: traMADol HCl [Ultram] 50 mg PO Q6H PRN #12 tab PRN Reason: Pain Is patient prescribed a controlled substance at d/c from ED?: Yes When asked, does pt state using other controlled substances?: No If prescribed controlled substance>3 days was MAPS reviewed?: Prescribed <3 Days If opioid is for acute pain is fill amount 7 days or less?: Yes If Rx opioid, was Start Talking consent form obtained?: Yes Referrals: None,Stated [Primary Care Provider] - 1-2 days Time of Disposition: 10:42
== END 2020-08-28 10:50 | disposition home or self-care (01) ==
LOC: EC 10:18
DX: M54.5 Low back pain (principal); G89.29 Other chronic pain; Z88.8 Allergy status to other drugs, medicaments and biological substances; Z88.6 Allergy status to analgesic agent; Z91.010 Allergy to peanuts; Z91.018 Allergy to other foods; Z87.891 Personal history of nicotine dependence
CPT/HCPCS: 99283

== ENCOUNTER 2020-09-03 09:41 | Emergency (ER) | payer OTHER ==
[2020-09-03 09:51] VITALS: BP 124/82; PULSE 64; RESP 18; TEMP 98.9
[2020-09-03] MEDS ORDERED: traMADol 50 MG STARTER PACK 3 TAB BTL PO STA (10:26)
--- NOTE | 2020-09-03 10:26 | ED ---
Back Pain [facility] - General Chief Complaint: Back Pain/Injury Stated Complaint: back & sciatica pain Time Seen by Provider: 09/03/20 10:03 Source: patient Limitations: no limitations - History of Present Illness Initial Comments: Patient is a 39-year-old female, well known to the ER, presenting for chronic low back pain with some left-sided sciatica. She denies any changes in her pain or symptoms. She states she doesn't appoint with pain management but that her appointment was delayed due to some in the office ana Covid. She states she normally takes tramadol and ibuprofen 800s at home. She states she is out of both medications. She just finished a course of steroids last week. She denies any recent falls or trauma. She denies any fever, chills, numbness into her extremities, saddle paresthesias, bowel or bladder incontinence. She has no further complaints. - Related Data Previous Rx's Medication Instructions Recorded Ibuprofen [Motrin] 600 mg PO Q8HR PRN #30 tab 12/07/19 Metaxalone [Skelaxin] 800 mg PO TID #15 tab 06/22/20 Metaxalone [Skelaxin] 400 mg PO Q6H #12 tablet 07/05/20 traMADol HCL [Ultram] 50 mg PO Q6HR PRN 3 Days #12 tab 07/05/20 Ketorolac [Toradol] 10 mg PO Q8HR #7 tab 07/08/20 Diclofenac Sodium 50 mg PO TID #18 tablet. 07/10/20 predniSONE 60 mg PO DAILY #30 tab 07/10/20 Diclofenac Sodium 50 mg PO BID #18 tablet. 08/02/20 traMADol HCL [Ultram] 50 mg PO Q6HR PRN 3 Days #12 tab 08/02/20 predniSONE 50 mg PO DAILY #5 tablet 08/15/20 traMADol HCl [Ultram] 50 mg PO Q6H PRN #12 tab 08/28/20 Ibuprofen [Motrin] 800 mg PO Q8HR #30 tab 09/03/20 Allergies Allergy/AdvReac Type Severity Reaction Status Date / Time carisoprodol [From Soma] Allergy Unknown Verified 09/03/20 09:51 cyclobenzaprine Allergy Rash/Hives Verified 09/03/20 09:51 methocarbamol [From Robaxin] Allergy Rash/Hives Verified 09/03/20 09:51 naproxen [From Naprosyn] Allergy Nausea Verified 09/03/20 09:51 orphenadrine [From Norflex] Allergy Vomiting Verified 09/03/20 09:51 peanut Allergy Anaphylaxis Verified 09/03/20 09:51 Pork/Porcine Containing Allergy Rash/Hives Verified 09/03/20 09:51 Products [Pork] rice Allergy Rash/Hives Verified 09/03/20 09:51 tree nut [Nut] Allergy Swelling Verified 09/03/20 09:51 ketorolac [From Toradol] AdvReac Vomiting Verified 09/03/20 09:51 muscle relaxers Allergy Unknown Uncoded 10 09:51 Review of Systems ROS Statement: Those systems with pertinent positive or pertinent negative responses have been documented in the HPI. ROS Other: All systems not noted in ROS Statement are negative. Past Medical History Past Medical History: Seizure Disorder Additional Past Medical History / Comment(s): cyst on kidney, migraines, back pain, brain tumors, History of Any Multi-Drug Resistant Organisms: None Reported Past Surgical History: Cholecystectomy, Tonsillectomy Past Psychological History: Anxiety Smoking Status: Former smoker Past Alcohol Use History: None Reported Past Drug Use History: None Reported General Exam - General Exam Comments Initial Comments: GENERAL: Patient is well-developed and well-nourished. Patient is nontoxic and in no acute distress, moving around the exam room, getting up and down without difficulty. HEAD: Atraumatic, normocephalic. EYES: Pupils equal round and reactive to light, extraocular movements intact, sclera anicteric, conjunctiva are normal. Eyelids were unremarkable. ENT: TMs normal, nares patent, oropharynx clear without exudates. Moist mucous membranes. NECK: Normal range of motion, supple without lymphadenopathy or JVD. LUNGS: Unlabored respirations. Breath sounds clear to auscultation bilaterally and equ al. No wheezes rales or rhonchi. HEART: Regular rate and rhythm without murmurs, rubs or gallops. ABDOMEN: Soft, nontender, normoactive bowel sounds. No guarding, no rebound. No masses appreciated. : Deferred MUSCULOSKELETAL: Normal extremities with adequate strength and normal range of motion, no pitting or edema. No clubbing or cyanosis. She has full trunk range of motion, pain free. NEUROLOGICAL: Patient is alert and oriented x 3. Motor and sensory are also intact. Symmetrical smile. Normal speech, normal gait. PSYCH: Normal mood, normal affect. SKIN: Warm, Dry, normal turgor, no rashes or lesions noted. Limitations: no limitations Course Vital Signs 09/03/20 09:49 Temperature 98.9 F Pulse Rate 64 Respiratory 18 Rate Blood Pressure 124/82 O2 Sat by Pulse 98 Oximetry Medical Decision Making - Medical Decision Making Patient is a 39-year-old female, well-known to the ER here for chronic low back pain and left-sided sciatica. Her symptoms have not changed since her last visit. Her vitals are stable. There is been no further trauma or injury since her last visit. She does have appointment with pain management but is out of her medications. She states she may take ibuprofen and tramadol. I will refer her ibuprofen and give her a starter pack of tramadol but I will not give her another prescription for tramadol to go home with. She needs to follow up with her PCP or pain management for those medication. Patient is stable for discharge. She is in agreement with this plan of care. Return parameters were discussed with the patient she verbalized understanding. Disposition Clinical Impression: Chronic back pain Disposition: HOME SELF-CARE Condition: Stable Instructions (If sedation given, give patient instructions): Chronic Back Pain (DC) Additional Instructions: Please return to the Emergency Department if symptoms worsen or any other concerns. Need to follow up with PCP or pain management for further refills on prescriptions. Prescriptions: Ibuprofen [Motrin] 800 mg PO Q8HR #30 tab Is patient prescribed a controlled substance at d/c from ED?: No Referrals: None,Stated [Primary Care Provider] - 1-2 days
== END 2020-09-03 10:31 | disposition home or self-care (01) ==
LOC: EC 09:41
DX: G89.29 Other chronic pain (principal); M54.42 Lumbago with sciatica, left side; Z88.8 Allergy status to other drugs, medicaments and biological substances; Z88.6 Allergy status to analgesic agent; Z91.010 Allergy to peanuts; Z91.018 Allergy to other foods; Z87.891 Personal history of nicotine dependence
CPT/HCPCS: 99283

== ENCOUNTER 2020-09-08 15:04 | Emergency (ER) | payer OTHER ==
[2020-09-08 15:19] VITALS: BP 122/76; PULSE 81; RESP 18
[2020-09-08] MEDS ORDERED: traMADol 50 MG TAB PO STA (15:52)
[2020-09-08 15:59] VITALS: TEMP 98.3
[2020-09-08] MEDS ORDERED: traMADol 50 MG STARTER PACK 3 TAB BTL PO STA (16:48)
--- NOTE | 2020-09-08 16:56 | ED ---
General Adult HPI - General Chief complaint: Back Pain/Injury Stated complaint: back pain Time Seen by Provider: 09/08/20 15:34 Source: patient, RN notes reviewed, old records reviewed Mode of arrival: ambulatory Limitations: no limitations - History of Present Illness Initial comments: 39-year-old female patient history chronic back pain to ED with cheif complaint of her lumbar back discomfort. Patient reports that she was raking leaves todays when she began to feel pain in her paralumbar back region. No midline discomfort. No radiculopathy, weakness or red flag symptoms, no loss of bowel or bladder control. Denies any other acute complaints. Systemic: Pt denies fatigue, fever/chills, rash. Pt denies weakness, night sweats, weight loss. Neuro: Pt denies headache, visual disturbances, syncope or pre-syncope. HEENT: Pt denies ocular discharge or irritation, otalgia, rhinorrhea, pharyngitis or notable lymphadenopathy. Cardiopulmonary: Pt denies chest pain, SOB, heart palpitations, dyspnea on exertion. Abdominal/GI: Pt denies abdominal pain, n/v/d. : Pt denies dysuria, burning w/ urination, frequency/urgency. Denies new onset urinary or bowel incontinence. MSK: Pt denies loss of strength or function in extremities. Neuro: Pt denies new onset weakness, paresthesias. - Related Data Previous Rx's Medication Instructions Recorded Ibuprofen [Motrin] 600 mg PO Q8HR PRN #30 tab 12/07/19 Metaxalone [Skelaxin] 800 mg PO TID #15 tab 06/22/20 Metaxalone [Skelaxin] 400 mg PO Q6H #12 tablet 07/05/20 traMADol HCL [Ultram] 50 mg PO Q6HR PRN 3 Days #12 tab 07/05/20 Ketorolac [Toradol] 10 mg PO Q8HR #7 tab 07/08/20 Diclofenac Sodium 50 mg PO TID #18 tablet. 07/10/20 predniSONE 60 mg PO DAILY #30 tab 07/10/20 Diclofenac Sodium 50 mg PO BID #18 tablet. 08/02/20 traMADol HCL [Ultram] 50 mg PO Q6HR PRN 3 Days #12 tab 08/02/20 predniSONE 50 mg PO DAILY #5 tablet 08/15/20 traMADol HCl [Ultram] 50 mg PO Q6H PRN #12 tab 08/28/20 Ibuprofen [Motrin] 800 mg PO Q8HR #30 tab 09/03/20 Allergies Allergy/AdvReac Type Severity Reaction Status Date / Time carisoprodol [From Soma] Allergy Unknown Verified 09/08/20 15:19 cyclobenzaprine Allergy Rash/Hives Verified 09/08/20 15:19 methocarbamol [From Robaxin] Allergy Rash/Hives Verified 09/08/20 15:19 naproxen [From Naprosyn] Allergy Nausea Verified 09/08/20 15:19 orphenadrine [From Norflex] Allergy Vomiting Verified 09/08/20 15:19 peanut Allergy Anaphylaxis Verified 09/08/20 15:19 Pork/Porcine Containing Allergy Rash/Hives Verified 09/08/20 15:19 Products [Pork] rice Allergy Rash/Hives Verified 09/08/20 15:19 tree nut [Nut] Allergy Swelling Verified 09/08/20 15:19 ketorolac [From Toradol] AdvReac Vomiting Verified 09/08/20 15:19 muscle relaxers Allergy Unknown Uncoded 09/08/20 15:19 Review of Systems ROS Statement: Those systems with pertinent positive or pertinent negative responses have been documented in the HPI. ROS Other: All systems not noted in ROS Statement are negative. Past Medical History Past Medical History: Seizure Disorder Additional Past Medical History / Comment(s): cyst on kidney, migraines, back pain, brain tumors, History of Any Multi-Drug Resistant Organisms: None Reported Past Surgical History: Cholecystectomy, Tonsillectomy Past Psychological History: Anxiety Smoking Status: Former smoker Past Alcohol Use History: None Reported Past Drug Use History: None Reported General Exam - General Exam Comments Initial Comments: Constitutional: NAD, AOX3, Pt has pleasant affect. HEENT: NC/AT, trachea midline, neck supple, no lymphadenopathy. External ears appear normal, without discharge. Mucous membranes moist. Eyes PERRLA, EOM intact. There is no scleral icterus. No pallor noted. Cardiopulmonary: RRR, no murmurs, rubs or gallops, no JVD noted. Lungs CTAB in anterior and posterior cervantes. No peripheral edema. Abdominal exam: Abdomen soft and non-distended. Neuro: CN II-XII grossly intact. No nuchal rigidity. No raccon eyes, no mccann sign, no hemotympanum. No cervical spinal tenderness. MSK: Left paralumbar lumbar region mildly tender to palpation. No midline tenderness. 5/5 strength psoas quadriceps muscles. Heel to toe walking is intact. Sensation is intact. No posterior calf tenderness bilaterally, homans sign negative bilaterally. Posterior tibialis pulse +2 bilaterally. Sensation intact in upper and lower extremities. Full active ROM in upper and lower extremities, 5/5 stregnth. Limitations: no limitations Course Vital Signs 09/08/20 09/08/20 15:17 15:59 Temperature 99.8 F H 98.3 F Pulse Rate 81 Respiratory 18 Rate Blood Pressure 122/76 O2 Sat by Pulse 99 Oximetry Medical Decision Making - Medical Decision Making 39-year-old female patient, and back pain preceded chief complaint of paralumbar back pain after raking leaves. No red flag symptoms. Patient declining imaging. Patient feeling much improved. Ambulatory without difficulty. will be discharged will follow-up with primary care provider as well as pain management tomorrow and return to ER if any worsening symptoms. Case discussed with Dr. Mujica. Disposition Clinical Impression: Lumbar back pain Disposition: HOME SELF-CARE Condition: Stable Instructions (If sedation given, give patient instructions): Acute Low Back Pain (ED) Additional Instructions: Follow up with PCP and pain management tomorrow. Return to ED with any worsening symptoms. Is patient prescribed a controlled substance at d/c from ED?: No Referrals: None,Stated [Primary Care Provider] - 1-2 days Flakito Mccain [STAFF PHYSICIAN] - 1-2 days Dong Lopez MD [REFERRING] - 1-2 days
== END 2020-09-08 17:00 | disposition home or self-care (01) ==
LOC: EC 15:04
DX: M54.5 Low back pain (principal); Z88.6 Allergy status to analgesic agent; Z88.8 Allergy status to other drugs, medicaments and biological substances; Z91.010 Allergy to peanuts; Z91.018 Allergy to other foods; Z87.891 Personal history of nicotine dependence; X50.1XXA Overexertion from prolonged static or awkward postures, initial encounter
CPT/HCPCS: 99283

== ENCOUNTER 2020-09-30 10:28 | Emergency (ER) | payer OTHER ==
[2020-09-30 10:42] VITALS: TEMP 98.9
[2020-09-30 11:41] VITALS: BP 137/84; PULSE 80; RESP 16
[2020-09-30] MEDS ORDERED: traMADol 50 MG STARTER PACK 3 TAB BTL PO STA (12:22)
--- NOTE | 2020-09-30 12:22 | ED ---
Back Pain HPI - General Chief Complaint: Back Pain/Injury Stated Complaint: Back pain Time Seen by Provider: 09/30/20 11:32 Source: patient, RN notes reviewed Mode of arrival: ambulatory Limitations: no limitations - History of Present Illness Initial Comments: 39-year-old female presents emergency Department with chief complaint of low back pain. This is chronic in nature. Patient states she aggravated by standing long periods of time talking today. Patient states that she has no lower extension symptoms no bowel bladder incontinence or retention. No abdominal pain. Patient offers no other complaints. - Related Data Previous Rx's Medication Instructions Recorded Ibuprofen [Motrin] 600 mg PO Q8HR PRN #30 tab 12/07/19 Metaxalone [Skelaxin] 800 mg PO TID #15 tab 06/22/20 Metaxalone [Skelaxin] 400 mg PO Q6H #12 tablet 07/05/20 traMADol HCL [Ultram] 50 mg PO Q6HR PRN 3 Days #12 tab 07/05/20 Ketorolac [Toradol] 10 mg PO Q8HR #7 tab 07/08/20 Diclofenac Sodium 50 mg PO TID #18 tablet. 07/10/20 predniSONE 60 mg PO DAILY #30 tab 07/10/20 Diclofenac Sodium 50 mg PO BID #18 tablet. 08/02/20 traMADol HCL [Ultram] 50 mg PO Q6HR PRN 3 Days #12 tab 08/02/20 predniSONE 50 mg PO DAILY #5 tablet 08/15/20 traMADol HCl [Ultram] 50 mg PO Q6H PRN #12 tab 08/28/20 Ibuprofen [Motrin] 800 mg PO Q8HR #30 tab 09/03/20 traMADol HCl [Ultram] 50 mg PO Q6H PRN #12 tab 09/30/20 Allergies Allergy/AdvReac Type Severity Reaction Status Date / Time carisoprodol [From Soma] Allergy Unknown Verified 09/08/20 15:19 cyclobenzaprine Allergy Rash/Hives Verified 09/08/20 15:19 methocarbamol [From Robaxin] Allergy Rash/Hives Verified 09/08/20 15:19 naproxen [From Naprosyn] Allergy Nausea Verified 09/08/20 15:19 orphenadrine [From Norflex] Allergy Vomiting Verified 09/08/20 15:19 peanut Allergy Anaphylaxis Verified 09/08/20 15:19 Pork/Porcine Containing Allergy Rash/Hives Verified 09/08/20 15:19 Products [Pork] rice Allergy Rash/Hives Verified 09/08/20 15:19 tree nut [Nut] Allergy Swelling Verified 09/08/20 15:19 ketorolac [From Toradol] AdvReac Vomiting Verified 09/08/20 15:19 muscle relaxers Allergy Unknown Uncoded 09/08/20 15:19 steroids AdvReac Rash/Hives Uncoded 09/30/20 10:43 Review of Systems ROS Statement: Those systems with pertinent positive or pertinent negative responses have been documented in the HPI. ROS Other: All systems not noted in ROS Statement are negative. Past Medical History Past Medical History: Seizure Disorder Additional Past Medical History / Comment(s): cyst on kidney, migraines, back pain, brain tumors, History of Any Multi-Drug Resistant Organisms: None Reported Past Surgical History: Cholecystectomy, Tonsillectomy Past Psychological History: Anxiety Smoking Status: Former smoker Past Alcohol Use History: None Reported Past Drug Use History: None Reported General Exam Limitations: no limitations General appearance: alert, in no apparent distress Head exam: Present: atraumatic, normocephalic, normal inspection Neck exam: Present: normal inspection. Absent: tenderness, meningismus, lymphadenopathy Respiratory exam: Present: normal lung sounds bilaterally. Absent: respiratory distress, wheezes, rales, rhonchi, stridor Cardiovascular Exam: Present: regular rate, normal rhythm, normal heart sounds. Absent: systolic murmur, diastolic murmur, rubs, gallop, clicks GI/Abdominal exam: Present: soft, normal bowel sounds. Absent: distended, tenderness, guarding, rebound, rigid Extremities exam: Present: normal inspection, full ROM, normal capillary refill. Absent: tenderness, pedal edema, joint swelling, calf tenderness Back exam: Present: normal inspection, full ROM, tenderness, paraspinal tenderness. Absent: CVA tenderness (R), CVA tenderness (L), vertebral tenderness Neurological exam: Present: alert, oriented X3, CN II-XII intact, reflexes normal. Absent: motor sensory deficit Course Vital Signs 09/30/20 09/30/20 10:41 11:30 Temperature 98.9 F 98.9 F Pulse Rate 76 80 Respiratory 18 16 Rate Blood Pressure 125/85 137/84 O2 Sat by Pulse 99 100 Oximetry Medical Decision Making - Medical Decision Making 39-year-old presented for low back pain. This is chronic in nature with no acute changes. She has no red flag symptoms she is neurovascularly intact. Patient has follow-up on October 11 with pain management. Patient we discharged stable condition return parameters were discussed. Disposition Clinical Impression: Lumbar back pain Disposition: HOME SELF-CARE Condition: Stable Instructions (If sedation given, give patient instructions): Acute Low Back Pain (ED) Additional Instructions: Please return to the Emergency Department if symptoms worsen or any other concerns. Prescriptions: traMADol HCl [Ultram] 50 mg PO Q6H PRN #12 tab PRN Reason: Pain Is patient prescribed a controlled substance at d/c from ED?: Yes When asked, does pt state using other controlled substances?: No If prescribed controlled substance>3 days was MAPS reviewed?: Prescribed <3 Days If opioid is for acute pain is fill amount 7 days or less?: Yes If Rx opioid, was Start Talking consent form obtained?: Yes Referrals: None,Stated [Primary Care Provider] - 1-2 days Time of Disposition: 12:22
== END 2020-09-30 12:31 | disposition home or self-care (01) ==
LOC: EC 10:28
DX: M54.5 Low back pain (principal); Z88.6 Allergy status to analgesic agent; Z88.8 Allergy status to other drugs, medicaments and biological substances; Z91.010 Allergy to peanuts; Z91.018 Allergy to other foods; Z91.048 Other nonmedicinal substance allergy status; Z87.891 Personal history of nicotine dependence
CPT/HCPCS: 99283

== ENCOUNTER 2020-10-10 16:33 | Emergency (ER) | payer OTHER ==
[2020-10-10 16:37] VITALS: BP 123/81; PULSE 69; RESP 18; TEMP 98.7
[2020-10-10] MEDS ORDERED: traMADol 50 MG STARTER PACK 3 TAB BTL PO STA (17:06)
--- NOTE | 2020-10-10 17:07 | ED ---
Back Pain HPI - General Chief Complaint: Back Pain/Injury Stated Complaint: Back pain Time Seen by Provider: 10/10/20 16:42 Source: patient, RN notes reviewed, old records reviewed Limitations: no limitations - History of Present Illness Initial Comments: 39-year-old female presents emergency department today with complaints of back pain. Patient reports that she was wrapping [employer] presents and bent over and felt a pop in her back. She is well-known to emergency room for chronic back pain. She states that she takes tramadol. She was reportedly had an upcoming appointment on October 11 tomorrow for a back specialist however they had to be rescheduled. Patient at this time has no saddle anesthesias red flag symptoms. - Related Data Previous Rx's Medication Instructions Recorded Ibuprofen [Motrin] 600 mg PO Q8HR PRN #30 tab 12/07/19 Metaxalone [Skelaxin] 800 mg PO TID #15 tab 06/22/20 Metaxalone [Skelaxin] 400 mg PO Q6H #12 tablet 07/05/20 traMADol HCL [Ultram] 50 mg PO Q6HR PRN 3 Days #12 tab 07/05/20 Ketorolac [Toradol] 10 mg PO Q8HR #7 tab 07/08/20 Diclofenac Sodium 50 mg PO TID #18 tablet. 07/10/20 predniSONE 60 mg PO DAILY #30 tab 07/10/20 Diclofenac Sodium 50 mg PO BID #18 tablet. 08/02/20 traMADol HCL [Ultram] 50 mg PO Q6HR PRN 3 Days #12 tab 08/02/20 predniSONE 50 mg PO DAILY #5 tablet 08/15/20 traMADol HCl [Ultram] 50 mg PO Q6H PRN #12 tab 08/28/20 Ibuprofen [Motrin] 800 mg PO Q8HR #30 tab 09/03/20 traMADol HCl [Ultram] 50 mg PO Q6H PRN #12 tab 09/30/20 Allergies Allergy/AdvReac Type Severity Reaction Status Date / Time carisoprodol [From Soma] Allergy Unknown Verified 09/08/20 15:19 cyclobenzaprine Allergy Rash/Hives Verified 09/08/20 15:19 methocarbamol [From Robaxin] Allergy Rash/Hives Verified 09/08/20 15:19 naproxen [From Naprosyn] Allergy Nausea Verified 09/08/20 15:19 orphenadrine [From Norflex] Allergy Vomiting Verified 09/08/20 15:19 peanut Allergy Anaphylaxis Verified 09/08/20 15:19 Pork/Porcine Containing Allergy Rash/Hives Verified 09/08/20 15:19 Products [Pork] rice Allergy Rash/Hives Verified 09/08/20 15:19 tree nut [Nut] Allergy Swelling Verified 09/08/20 15:19 ketorolac [From Toradol] AdvReac Vomiting Verified 09/08/20 15:19 muscle relaxers Allergy Unknown Uncoded 09/08/20 15:19 steroids AdvReac Rash/Hives Uncoded 09/30/20 10:43 Review of Systems ROS Statement: Those systems with pertinent positive or pertinent negative responses have been documented in the HPI. ROS Other: All systems not noted in ROS Statement are negative. Past Medical History Past Medical History: Seizure Disorder Additional Past Medical History / Comment(s): cyst on kidney, migraines, back pain, brain tumors, History of Any Multi-Drug Resistant Organisms: None Reported Past Surgical History: Cholecystectomy, Tonsillectomy Past Psychological History: No Psychological Hx Reported, Anxiety Smoking Status: Former smoker Past Alcohol Use History: None Reported Past Drug Use History: None Reported General Exam - General Exam Comments Initial Comments: 39-year-old female. No distress. Limitations: no limitations General appearance: alert, in no apparent distress Head exam: Present: atraumatic, normocephalic, normal inspection Eye exam: Present: normal appearance, PERRL, EOMI. Absent: scleral icterus, conjunctival injection, periorbital swelling ENT exam: Present: normal exam, mucous membranes moist Neck exam: Present: normal inspection. Absent: tenderness, meningismus, lymphadenopathy Respiratory exam: Present: normal lung sounds bilaterally. Absent: respiratory distress, wheezes, rales, rhonchi, stridor Cardiovascular Exam: Present: regular rate, normal rhythm, normal heart sounds. Absent: systolic murmur, diastolic murmur, rubs, gallop, clicks GI/Abdominal exam: Present: soft, normal bowel sounds. Absent: distended, tenderness, guarding, rebound, rigid Extremities exam: Present: normal inspection, full ROM, normal capillary refill. Absent: tenderness, pedal edema, joint swelling, calf tenderness Back exam: Present: normal inspection, full ROM, tenderness (Over left lower paraspinal muscles) Neurological exam: Present: alert, oriented X3, CN II-XII intact Psychiatric exam: Present: normal affect, normal mood Skin exam: Present: warm, dry, intact, normal color. Absent: rash Course Vital Signs 10/10/20 16:34 Temperature 98.7 F Pulse Rate 69 Respiratory 18 Rate Blood Pressure 123/81 O2 Sat by Pulse 100 Oximetry Medical Decision Making - Medical Decision Making 39-year-old for back pain. She reported a pop in her back while wrapping presents. Cystoscopy fall or trauma or red flag symptoms does not worse and would warrant imaging today. She is scheduled to see primary care doctor and orthopedic back specialist within the next few weeks. Given IM pain medications and advised to return to the ED if any alarming signs or symptoms occur. Disposition Clinical Impression: Back pain Disposition: HOME SELF-CARE Condition: Good Instructions (If sedation given, give patient instructions): Acute Low Back Pain (ED) Additional Instructions: Please use medication as discussed. Please follow up with family doctor if symptoms have not improved over the next two days. Please return to the emergency room if your symptoms increase or worsen or for any other concerns. Is patient prescribed a controlled substance at d/c from ED?: No Referrals: None,Stated [Primary Care Provider] - 1-2 days Time of Disposition: 17:07
== END 2020-10-10 17:17 | disposition home or self-care (01) ==
LOC: EC 16:33
DX: M54.9 Dorsalgia, unspecified (principal); G89.29 Other chronic pain; Z88.8 Allergy status to other drugs, medicaments and biological substances; Z88.6 Allergy status to analgesic agent; Z91.010 Allergy to peanuts; Z91.018 Allergy to other foods; Z87.891 Personal history of nicotine dependence
CPT/HCPCS: 99283

== ENCOUNTER 2020-10-13 09:47 | Emergency (ER) | payer OTHER ==
[2020-10-13 10:11] VITALS: BP 111/73; PULSE 79; RESP 18; TEMP 98.6
--- NOTE | 2020-10-13 10:29 | ED ---
Back Pain HPI - General Chief Complaint: Back Pain/Injury Stated Complaint: sciatica pain Time Seen by Provider: 10/13/20 10:13 Source: patient, RN notes reviewed Limitations: no limitations - History of Present Illness Initial Comments: 39-year-old female presents emergency Department with chief complaint of low back pain. This is a chronic in nature. Patient has no neurological deficits. No new symptoms. No bowel bladder incontinence retention. Patient states it is at low back she's an appointment in 8 days. Patient offers no other complaints. - Related Data Previous Rx's Medication Instructions Recorded Ibuprofen [Motrin] 600 mg PO Q8HR PRN #30 tab 12/07/19 Metaxalone [Skelaxin] 800 mg PO TID #15 tab 06/22/20 Metaxalone [Skelaxin] 400 mg PO Q6H #12 tablet 07/05/20 traMADol HCL [Ultram] 50 mg PO Q6HR PRN 3 Days #12 tab 07/05/20 Ketorolac [Toradol] 10 mg PO Q8HR #7 tab 07/08/20 Diclofenac Sodium 50 mg PO TID #18 tablet. 07/10/20 predniSONE 60 mg PO DAILY #30 tab 07/10/20 Diclofenac Sodium 50 mg PO BID #18 tablet. 08/02/20 traMADol HCL [Ultram] 50 mg PO Q6HR PRN 3 Days #12 tab 08/02/20 predniSONE 50 mg PO DAILY #5 tablet 08/15/20 traMADol HCl [Ultram] 50 mg PO Q6H PRN #12 tab 08/28/20 Ibuprofen [Motrin] 800 mg PO Q8HR #30 tab 09/03/20 traMADol HCl [Ultram] 50 mg PO Q6H PRN #12 tab 10/13/20 Allergies Allergy/AdvReac Type Severity Reaction Status Date / Time carisoprodol [From Soma] Allergy Unknown Verified 10/13/20 10:11 cyclobenzaprine Allergy Rash/Hives Verified 10/13/20 10:11 methocarbamol [From Robaxin] Allergy Rash/Hives Verified 10/13/20 10:11 naproxen [From Naprosyn] Allergy Nausea Verified 10/13/20 10:11 orphenadrine [From Norflex] Allergy Vomiting Verified 10/13/20 10:11 peanut Allergy Anaphylaxis Verified 10/13/20 10:11 Pork/Porcine Containing Allergy Rash/Hives Verified 10/13/20 10:11 Products [Pork] rice Allergy Rash/Hives Verified 10/13/20 10:11 tree nut [Nut] Allergy Swelling Verified 10/13/20 10:11 ketorolac [From Toradol] AdvReac Vomiting Verified 10/13/20 10:11 muscle relaxers Allergy Unknown Uncoded 10/13/20 10:11 steroids AdvReac Rash/Hives Uncoded 10/13/20 10:11 Review of Systems ROS Statement: Those systems with pertinent positive or pertinent negative responses have been documented in the HPI. ROS Other: All systems not noted in ROS Statement are negative. Past Medical History Past Medical History: Seizure Disorder Additional Past Medical History / Comment(s): cyst on kidney, migraines, back pain, brain tumors, History of Any Multi-Drug Resistant Organisms: None Reported Past Surgical History: Cholecystectomy, Tonsillectomy Past Psychological History: No Psychological Hx Reported Smoking Status: Former smoker Past Alcohol Use History: None Reported Past Drug Use History: None Reported General Exam Limitations: no limitations General appearance: alert, in no apparent distress Head exam: Present: atraumatic, normocephalic, normal inspection Eye exam: Present: normal appearance, PERRL, EOMI. Absent: scleral icterus, conjunctival injection, periorbital swelling ENT exam: Present: normal exam, normal oropharynx, mucous membranes moist Neck exam: Present: normal inspection, full ROM. Absent: tenderness, meningismus, lymphadenopathy Respiratory exam: Present: normal lung sounds bilaterally. Absent: respiratory distress, wheezes, rales, rhonchi, stridor Cardiovascular Exam: Present: regular rate, normal rhythm, normal heart sounds. Absent: systolic murmur, diastolic murmur, rubs, gallop, clicks GI/Abdominal exam: Present: soft, normal bowel sounds. Absent: distended, tenderness, guarding, rebound, rigid Back exam: Present: full ROM, tenderness, paraspinal tenderness. Absent: verteb ral tenderness Neurological exam: Present: alert, oriented X3, CN II-XII intact, reflexes normal. Absent: motor sensory deficit Skin exam: Present: warm, dry, intact, normal color. Absent: rash Course Vital Signs 10/13/20 10:07 Temperature 98.6 F Pulse Rate 79 Respiratory 18 Rate Blood Pressure 111/73 O2 Sat by Pulse 98 Oximetry Medical Decision Making - Medical Decision Making Patient has no red flag symptoms. Patient has appointment with pain management physical therapy. Patient discharged in stable condition return parameters were discussed. Disposition Clinical Impression: Back pain Disposition: HOME SELF-CARE Condition: Stable Instructions (If sedation given, give patient instructions): Acute Low Back Pain (ED) Additional Instructions: Please return to the Emergency Department if symptoms worsen or any other concerns. Prescriptions: traMADol HCl [Ultram] 50 mg PO Q6H PRN #12 tab PRN Reason: Pain Is patient prescribed a controlled substance at d/c from ED?: Yes When asked, does pt state using other controlled substances?: No If prescribed controlled substance>3 days was MAPS reviewed?: Prescribed <3 Days If opioid is for acute pain is fill amount 7 days or less?: Yes If Rx opioid, was Start Talking consent form obtained?: Yes Referrals: None,Stated [Primary Care Provider] - 1-2 days Time of Disposition: 10:29
== END 2020-10-13 10:45 | disposition home or self-care (01) ==
LOC: EC 09:47
DX: M54.5 Low back pain (principal); Z88.8 Allergy status to other drugs, medicaments and biological substances; Z88.6 Allergy status to analgesic agent; Z91.010 Allergy to peanuts; Z91.048 Other nonmedicinal substance allergy status; Z88.5 Allergy status to narcotic agent; Z87.891 Personal history of nicotine dependence
CPT/HCPCS: 99283

== ENCOUNTER 2020-10-25 09:25 | Emergency (ER) | payer OTHER ==
[2020-10-25 09:44] VITALS: TEMP 99
[2020-10-25] MEDS ORDERED: traMADol 50 MG STARTER PACK 3 TAB BTL PO STA (10:38)
--- NOTE | 2020-10-25 10:38 | ED ---
Back Pain HPI - General Chief Complaint: Back Pain/Injury Stated Complaint: Back Pain Time Seen by Provider: 10/25/20 10:02 Source: patient Limitations: no limitations - History of Present Illness Initial Comments: Patient is a 39-year-old female presenting to the emergency department with chronic neck and back pain. Patient is well-known to this ER. She denies any falls or trauma or increase in her symptoms. Patient states she has been getting some pain medicine from her PCP, Dr. Dinh. Patient states she is currently out of that medication. She states she has an appointment with pain management as well as physical therapy in November 10. Patient denies any fever, chills, lower extremity numbness or tingling. Denies any saddle paresthesias. She denies any other new symptoms. Patient is simply requesting some tramadol for discomfort. She has no further complaints at this time. She denies being . - Related Data Previous Rx's Medication Instructions Recorded Ibuprofen [Motrin] 600 mg PO Q8HR PRN #30 tab 12/07/19 Metaxalone [Skelaxin] 800 mg PO TID #15 tab 06/22/20 Metaxalone [Skelaxin] 400 mg PO Q6H #12 tablet 07/05/20 traMADol HCL [Ultram] 50 mg PO Q6HR PRN 3 Days #12 tab 07/05/20 Ketorolac [Toradol] 10 mg PO Q8HR #7 tab 07/08/20 Diclofenac Sodium 50 mg PO TID #18 tablet. 07/10/20 predniSONE 60 mg PO DAILY #30 tab 07/10/20 Diclofenac Sodium 50 mg PO BID #18 tablet. 08/02/20 traMADol HCL [Ultram] 50 mg PO Q6HR PRN 3 Days #12 tab 08/02/20 predniSONE 50 mg PO DAILY #5 tablet 08/15/20 traMADol HCl [Ultram] 50 mg PO Q6H PRN #12 tab 08/28/20 Ibuprofen [Motrin] 800 mg PO Q8HR #30 tab 09/03/20 traMADol HCl [Ultram] 50 mg PO Q6H PRN #12 tab 10/13/20 Allergies Allergy/AdvReac Type Severity Reaction Status Date / Time carisoprodol [From Soma] Allergy Unknown Verified 10/25/20 09:41 cyclobenzaprine Allergy Rash/Hives Verified 10/25/20 09:41 methocarbamol [From Robaxin] Allergy Rash/Hives Verified 10/25/20 09:41 naproxen [From Naprosyn] Allergy Nausea Verified 10/25/20 09:41 orphenadrine [From Norflex] Allergy Vomiting Verified 10/25/20 09:41 peanut Allergy Anaphylaxis Verified 10/25/20 09:41 Pork/Porcine Containing Allergy Rash/Hives Verified 10/25/20 09:41 Products [Pork] rice Allergy Rash/Hives Verified 10/25/20 09:41 tree nut [Nut] Allergy Swelling Verified 10/25/20 09:41 ketorolac [From Toradol] AdvReac Vomiting Verified 10/25/20 09:41 muscle relaxers Allergy Unknown Uncoded 10/13/20 10:11 steroids AdvReac Rash/Hives Uncoded 10/13/20 10:11 Review of Systems ROS Statement: Those systems with pertinent positive or pertinent negative responses have been documented in the HPI. ROS Other: All systems not noted in ROS Statement are negative. Past Medical History Past Medical History: Seizure Disorder Additional Past Medical History / Comment(s): cyst on kidney, migraines, back pain, brain tumors, History of Any Multi-Drug Resistant Organisms: None Reported Past Surgical History: Cholecystectomy, Tonsillectomy Past Psychological History: No Psychological Hx Reported Smoking Status: Former smoker Past Alcohol Use History: None Reported Past Drug Use History: None Reported General Exam - General Exam Comments Initial Comments: GENERAL: Patient is well-developed and well-nourished. Patient is nontoxic and in no acute distress. HEAD: Atraumatic, normocephalic. EYES: Pupils equal round and reactive to light, extraocular movements intact, sclera anicteric, conjunctiva are normal. Eyelids were unremarkable. ENT: TMs normal, nares patent, oropharynx clear without exudates. Moist mucous membranes. NECK: Normal range of motion, supple without lymphadenopathy or JVD. LUNGS: Unlabored respirations. Breath sounds clear to auscultation bilaterally and equal. No wheezes rales or rhonchi. HEART: Regular rate and rhythm without murmurs, rubs or gallops. ABDOMEN: Soft, nontender, normoactive bowel sounds. No guarding, no rebound. No masses appreciated. : Deferred MUSCULOSKELETAL: Normal extremities with adequate strength and normal range of motion, no pitting or edema. No clubbing or cyanosis. Patient has full trunk range of motion, 5 out of 5 strength in lower extremity bilaterally, bilaterally sensation intact. Neurovascular intact bilaterally. NEUROLOGICAL: Patient is alert and oriented x 3. Motor and sensory are also intact. Cranial nerves II through XII grossly intact. Symmetrical smile. Normal speech, normal gait. PSYCH: Normal mood, normal affect. SKIN: Warm, Dry, normal turgor, no rashes or lesions noted. Limitations: no limitations Course Vital Signs 10/25/20 09:41 Temperature 99 F Pulse Rate 73 Respiratory 18 Rate Blood Pressure 199/82 O2 Sat by Pulse 100 Oximetry Medical Decision Making - Medical Decision Making Patient is a 39-year-old well known to the ER for chronic neck and back pain. No changes, continues to have chronic symptoms. She did receive a recent prescription from Dr. Reyes for [place]. She is currently out. She is requesting tramadol. Exam is unremarkable, no neuro deficits, no red flag symptoms. Her vital signs are stable. Patient will be given a starter pack of tramadol. I discussed that I cannot write her another prescription for pain medicine. She needs get this through her PCP or pain management. She is in agreement with this plan of care. She is stable for discharge. Disposition Clinical Impression: Chronic back pain Disposition: HOME SELF-CARE Condition: Stable Instructions (If sedation given, give patient instructions): Chronic Back Pain (DC) Additional Instructions: Return to the ER for any worsening symptoms. Follow-up with your PCP as well as pain managment and PT as discussed. Is patient prescribed a controlled substance at d/c from ED?: No Referrals: None,Stated [Primary Care Provider] - 1-2 days
[2020-10-25 10:48] VITALS: BP 128/76; PULSE 87; RESP 16
== END 2020-10-25 10:48 | disposition home or self-care (01) ==
LOC: EC 09:25
DX: G89.29 Other chronic pain (principal); M54.9 Dorsalgia, unspecified; M54.2 Cervicalgia; Z88.8 Allergy status to other drugs, medicaments and biological substances; Z88.6 Allergy status to analgesic agent; Z91.010 Allergy to peanuts; Z91.018 Allergy to other foods; Z87.891 Personal history of nicotine dependence
CPT/HCPCS: 99283

== ENCOUNTER 2020-12-08 10:36 | Emergency (ER) | payer OTHER ==
[2020-12-08 10:41] VITALS: BP 130/83; PULSE 73; RESP 16; TEMP 98.1
[2020-12-08] MEDS ORDERED: traMADol 50 MG STARTER PACK 3 TAB BTL PO STA (11:02)
--- NOTE | 2020-12-08 11:05 | ED ---
Back Pain [facility] - General Chief Complaint: Back Pain/Injury Stated Complaint: back pain Time Seen by Provider: 12/08/20 10:41 Source: patient Limitations: no limitations - History of Present Illness Initial Comments: 39-year-old female with history of chronic back pain presenting to the ER today for chief complaint of back pain. Patient states she has not come pain medications in over a month. She states she's been trying to not take them however she continues to have chronic back pain. She denies any falls, IV drug use fevers changes in characteristic of her typical pain. Patient states that increases with movement of her torso. She denies dysuria urgency frequency she denies any hematuria. Patient states it is an aching pain patient states is slightly radiates down the left leg she denies any abdominal pain chest pain or shortness of breath. Patient denies any leg swelling. Patient denies any headaches nausea or vomiting. Patient denies any urinary retention loss of bowel bladder control weakness or sensation deficits of the lower extremities. Patient denies history of cancer. 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 Patient is no additional complaints and upon arrival she appears well nontoxic no acute distress she is ambulatory - Related Data Home Medications Medication Instructions Recorded Confirmed No Known Home Medications 12/08/20 12/08/20 Allergies Allergy/AdvReac Type Severity Reaction Status Date / Time carisoprodol [From Soma] Allergy Unknown Verified 12/08/20 11:03 cyclobenzaprine Allergy Rash/Hives Verified 12/08/20 11:03 methocarbamol [From Robaxin] Allergy Rash/Hives Verified 12/08/20 11:03 naproxen [From Naprosyn] Allergy Nausea Verified 12/08/20 11:03 orphenadrine [From Norflex] Allergy Vomiting Verified 12/08/20 11:03 peanut Allergy Anaphylaxis Verified 12/08/20 11:03 Pork/Porcine Containing Allergy Rash/Hives Verified 12/08/20 11:03 Products [Pork] rice Allergy Rash/Hives Verified 12/08/20 11:03 tree nut [Nut] Allergy Swelling Verified 12/08/20 11:03 ketorolac [From Toradol] AdvReac Vomiting Verified 12/08/20 11:03 muscle relaxers Allergy Unknown Uncoded 12/08/20 10:41 steroids AdvReac Rash/Hives Uncoded 12/08/20 10:41 Review of Systems ROS Statement: Those systems with pertinent positive or pertinent negative responses have been documented in the HPI. ROS Other: All systems not noted in ROS Statement are negative. Past Medical History Past Medical History: Seizure Disorder Additional Past Medical History / Comment(s): cyst on kidney, migraines, back pain, brain tumors, History of Any Multi-Drug Resistant Organisms: None Reported Past Surgical History: Cholecystectomy, Tonsillectomy Past Psychological History: No Psychological Hx Reported Smoking Status: Former smoker Past Alcohol Use History: None Reported Past Drug Use History: None Reported General Exam - General Exam Comments Initial Comments: General: The patient is awake and alert, in no distress Eye: +3 mm pupils are equal, round and reactive to light, extra-ocular movements are intact. No nystagmus. There is normal conjunctiva bilaterally. No signs of icterus. Ears, nose, mouth and throat: There are moist mucous membranes and no oral lesions. Neck: The neck is supple, there is no tenderness or JVD. Cardiovascular: There is a regular rate and rhythm. No murmur, rub or gallop is appreciated. Respiratory: Lungs are clear to auscultation, respirations are non-labored, breath sounds are equal. No wheezes, stridor, rales, or rhonchi. Gastrointestinal: Soft, non-distended, non-tender abdomen without masses or organomegaly noted. There is no rebound or guarding present. No CVA tenderness. Musculoskeletal: Some paraspinal tenderness of the lower thoracic spine, minimal midline. Normal ROM, no tenderness. Strength 5/5 of the LE b/l. Sensation intact of the lower extremities equal comparison bilaterally without. DP p ulses equal bilaterally 2+. Neurological: A&O x 3. CN II-XII intact grossly, There are no obvious motor or sensory deficits. Coordination appears grossly intact. Speech is normal. Skin: Skin is warm and dry and no rashes or lesions are noted. Psychiatric: Cooperative, appropriate mood & affect, normal judgment. Limitations: no limitations Course Vital Signs 12/08/20 10:38 Temperature 98.1 F Pulse Rate 73 Respiratory 16 Rate Blood Pressure 130/83 O2 Sat by Pulse 100 Oximetry Medical Decision Making - Medical Decision Making 39-year-old presenting for chief complaint of chronic back pain. Denies any new features. Denies urinary symptoms fevers IV drug use cancer denies urinary tension loss of bowel bladder control. Patient ambulatory, no skin changes. No fevers. Patient appears well nontoxic. given MAPS score patient was given a tramadol starter pack but no outpatient prescriptions, recommend patient have one pcp for all pain mediations prescriptions. Disposition Clinical Impression: Chronic back pain Disposition: HOME SELF-CARE Condition: Good Instructions (If sedation given, give patient instructions): Chronic Back Pain (DC) Additional Instructions: Please use medication as discussed. Please follow-up with family doctor in the next 2 days.. Please return to emergency room if the symptoms increase or worsen or for any other concerns. Is patient prescribed a controlled substance at d/c from ED?: No Referrals: None,Stated [Primary Care Provider] - 1-2 days Time of Disposition: 11:05
== END 2020-12-08 11:25 | disposition home or self-care (01) ==
LOC: EC 10:36
DX: G89.29 Other chronic pain (principal); M54.9 Dorsalgia, unspecified; Z88.8 Allergy status to other drugs, medicaments and biological substances; Z91.010 Allergy to peanuts; Z88.6 Allergy status to analgesic agent; Z91.018 Allergy to other foods; Z87.891 Personal history of nicotine dependence
CPT/HCPCS: 99283

== ENCOUNTER 2020-12-23 11:10 | Emergency (ER) | payer OTHER ==
[2020-12-23 11:35] VITALS: BP 128/83; PULSE 76; RESP 18; TEMP 99
[2020-12-23] MEDS ORDERED: KETOROLAC 15 MG/ML 1 ML VIAL IM STA (11:49)
--- NOTE | 2020-12-23 11:50 | ED ---
Back Pain HPI - General Chief Complaint: Back Pain/Injury Stated Complaint: Back pain Time Seen by Provider: 12/23/20 11:37 Source: patient Limitations: no limitations - History of Present Illness Initial Comments: 40-year-old feel presented for chronic back pain x years. Patient that she has struggled back pain for years. She states that she is trying to arrange follow- up with a primary care provider but does not have an appointment until January. She denies any new changes in pain she states she is out of her tramadol starter pack she does have decreased strength loss of sensation urinary retention loss of bladder/bowel control, fevers, fall, IVDU, cancer. Patient appears well nontoxic no acute distress. - Related Data Home Medications Medication Instructions Recorded Confirmed No Known Home Medications 12/08/20 12/08/20 Allergies Allergy/AdvReac Type Severity Reaction Status Date / Time carisoprodol [From Soma] Allergy Unknown Verified 12/23/20 11:35 cyclobenzaprine Allergy Rash/Hives Verified 12/23/20 11:35 methocarbamol [From Robaxin] Allergy Rash/Hives Verified 12/23/20 11:35 naproxen [From Naprosyn] Allergy Nausea Verified 12/23/20 11:35 orphenadrine [From Norflex] Allergy Vomiting Verified 12/23/20 11:35 peanut Allergy Anaphylaxis Verified 12/23/20 11:35 Pork/Porcine Containing Allergy Rash/Hives Verified 12/23/20 11:35 Products [Pork] rice Allergy Rash/Hives Verified 12/23/20 11:35 tree nut [Nut] Allergy Swelling Verified 12/23/20 11:35 ketorolac [From Toradol] AdvReac Vomiting Verified 12/23/20 11:35 muscle relaxers Allergy Unknown Uncoded 12/08/20 10:41 steroids AdvReac Rash/Hives Uncoded 12/08/20 10:41 Review of Systems ROS Statement: Those systems with pertinent positive or pertinent negative responses have been documented in the HPI. ROS Other: All systems not noted in ROS Statement are negative. Past Medical History Past Medical History: Seizure Disorder Additional Past Medical History / Comment(s): cyst on kidney, migraines, back pain, brain tumors, History of Any Multi-Drug Resistant Organisms: None Reported Past Surgical History: Cholecystectomy, Tonsillectomy Past Psychological History: No Psychological Hx Reported Smoking Status: Former smoker Past Alcohol Use History: None Reported Past Drug Use History: None Reported General Exam - General Exam Comments Initial Comments: General: The patient is awake and alert, in no distress Eye: +3 mm pupils are equal, round and reactive to light, extra-ocular movements are intact. No nystagmus. There is normal conjunctiva bilaterally. No signs of icterus. Ears, nose, mouth and throat: There are moist mucous membranes and no oral lesions. Neck: The neck is supple, there is no tenderness or JVD. Cardiovascular: There is a regular rate and rhythm. No murmur, rub or gallop is appreciated. Respiratory: Lungs are clear to auscultation, respirations are non-labored, breath sounds are equal. No wheezes, stridor, rales, or rhonchi. Gastrointestinal: Soft, non-distended, non-tender abdomen without masses or organomegaly noted. There is no rebound or guarding present. Musculoskeletal: No midline tenderness, band like pareaspinal tenderness of lower thoracic spine. Normal ROM, no tenderness. Strength 5/5 of the LE b/l. Sensation intact of the LE b/l. Radial pulses equal bilaterally 2+. Neurological: A&O x 3. CN II-XII intact grossly, There are no obvious motor or sensory deficits. Coordination appears grossly intact. Speech is normal. Skin: Skin is warm and dry and no rashes or lesions are noted. Psychiatric: Cooperative, appropriate mood & affect, normal judgment. Limitations: no limitations Course Vital Signs 12/23/20 11:32 Temperature 99.0 F Pulse Rate 76 Respiratory 18 Rate Blood Pressure 128/83 O2 Sat by Pulse 99 Oximetry Medical Decision Making - Medical Decision Making patient is no focal neurological deficits. She presents chronically for this complaint. Requesting tramadol starter pack. This time feel inappropriate use of ER for chronic complaint. discussed opioid safety and risk of opioid addiction with patient' who verbalized understanding and requested initially toradol but changed mind and accepted ibuprofen orally. stating she does tolerate this at home. Return parameters discussed and patient discharged appearing well Disposition Clinical Impression: Chronic pain, Low back pain Disposition: HOME SELF-CARE Condition: Good Instructions (If sedation given, give patient instructions): Pain Management (ED), Chronic Pain (ED) Additional Instructions: Please use medication as discussed. Please follow-up with family doctor in the next 2 days. Please return to emergency room if the symptoms increase or worsen or for any other concerns. Is patient prescribed a controlled substance at d/c from ED?: No Referrals: None,Stated [Primary Care Provider] - 1-2 days Time of Disposition: 11:50
[2020-12-23] MEDS ORDERED: IBUPROFEN 800 MG TAB PO STA (11:56)
== END 2020-12-23 12:10 | disposition home or self-care (01) ==
LOC: EC 11:10
DX: G89.29 Other chronic pain (principal); M54.5 Low back pain; Z88.8 Allergy status to other drugs, medicaments and biological substances; Z91.018 Allergy to other foods; Z88.6 Allergy status to analgesic agent; Z91.010 Allergy to peanuts
CPT/HCPCS: 99283

== ENCOUNTER 2021-01-07 10:52 | Emergency (ER) | payer OTHER ==
[2021-01-07 10:55] VITALS: BP 124/87; PULSE 73; RESP 16; TEMP 98
--- NOTE | 2021-01-07 11:25 | ED ---
Back Pain HPI - General Chief Complaint: Back Pain/Injury Stated Complaint: back pain Time Seen by Provider: 01/07/21 11:02 Source: patient Limitations: no limitations - History of Present Illness Initial Comments: Patient is a 40-year-old female presenting to the emergency Department with complaints of acute exacerbation of her chronic back pain. Patient has been seen here multiple times for the same complaint. Patient states she was able to get a new doctor that is closer to her house, her appointment is on January 18. Patient states she feels like a spasming is worse than normal and the ibuprofen that she has is not working. Or chills, no saddle paresthesias, no numbness and tingling into her lower extremities, no bowel or bladder incontinence. She states this feels like her normal pain but just a little bit worse. She has no further complaints at this time. - Related Data Previous Rx's Medication Instructions Recorded Ibuprofen [Motrin] 600 mg PO Q8HR PRN #30 tab 01/07/21 Allergies Allergy/AdvReac Type Severity Reaction Status Date / Time carisoprodol [From Soma] Allergy Unknown Verified 01/07/21 10:53 cyclobenzaprine Allergy Rash/Hives Verified 01/07/21 10:53 methocarbamol [From Robaxin] Allergy Rash/Hives Verified 01/07/21 10:53 naproxen [From Naprosyn] Allergy Nausea Verified 01/07/21 10:53 orphenadrine [From Norflex] Allergy Vomiting Verified 01/07/21 10:53 peanut Allergy Anaphylaxis Verified 01/07/21 10:53 Pork/Porcine Containing Allergy Rash/Hives Verified 01/07/21 10:53 Products [Pork] rice Allergy Rash/Hives Verified 01/07/21 10:53 tree nut [Nut] Allergy Swelling Verified 01/07/21 10:53 ketorolac [From Toradol] AdvReac Vomiting Verified 01/07/21 10:53 muscle relaxers Allergy Unknown Uncoded 01/07/21 10:53 steroids AdvReac Rash/Hives Uncoded 01/07/21 10:53 Review of Systems ROS Statement: Those systems with pertinent positive or pertinent negative responses have been documented in the HPI. ROS Other: All systems not noted in ROS Statement are negative. Past Medical History Past Medical History: Seizure Disorder Additional Past Medical History / Comment(s): cyst on kidney, migraines, back pain, brain tumors, History of Any Multi-Drug Resistant Organisms: None Reported Past Surgical History: Cholecystectomy, Tonsillectomy Past Psychological History: No Psychological Hx Reported Smoking Status: Former smoker Past Alcohol Use History: None Reported Past Drug Use History: None Reported General Exam - General Exam Comments Initial Comments: GENERAL: Patient is well-developed and well-nourished. Patient is nontoxic and in no acute distress, is sitting comfortably on the bed, full trunk range of motion. HEAD: Atraumatic, normocephalic. EYES: Pupils equal round and reactive to light, extraocular movements intact, sclera anicteric, conjunctiva are normal. Eyelids were unremarkable. ENT: Nares patent, oropharynx clear without exudates. Moist mucous membranes. NECK: Normal range of motion, supple without lymphadenopathy or JVD. LUNGS: Unlabored respirations. Breath sounds clear to auscultation bilaterally and equal. No wheezes rales or rhonchi. HEART: Regular rate and rhythm without murmurs, rubs or gallops. ABDOMEN: Soft, nontender, normoactive bowel sounds. No guarding, no rebound. No masses appreciated. : Deferred MUSCULOSKELETAL: Normal extremities with adequate strength and normal range of motion, no pitting or edema. No clubbing or cyanosis. Some mild tenderness of the lumbar musculature. NEUROLOGICAL: Patient is alert and oriented x 3. Motor and sensory are also intact. Cranial nerves II through XII grossly intact. Symmetrical smile. Normal speech, normal gait. PSYCH: Normal mood, normal affect. SKIN: Warm, Dry, normal turgor, no rashes or lesions noted. Limitations: no limitations Course Vital Signs 01/07/21 10:53 Temperature 98.0 F Pulse Rate 73 Respiratory 16 Rate Blood Pressure 124/87 O2 Sat by Pulse 100 Oximetry Medical Decision Making - Medical Decision Making Patient is a 40 -year-old female for an acute exacerbation of her chronic back pain. Well known to the ER for same complaint. Her exam is unremarkable, she is sitting comfortably on the bed, no acute distress. She was told her last visit that we cannot give her pain medication anymore. Patient states she was able to finally make an appointment with a new doctor, it is an January 18. She states that her pain is worsening and she is requesting medication until that appointment. Patient states ibuprofen is not working. I will give her a starter pack of tramadol today however I told her that we will not give her any more. She needs to start getting her medications from her doctor. Patient states she will not come back and asked for pain medicine anymore. She is also asking for refill of her ibuprofen which I will do. Patient is stable for discharge. Patient is in agreement with this plan of care. Return parameters were discussed with the patient and they verbalized understanding. Case discussed with Dr. Kessler. Disposition Clinical Impression: Chronic back pain Disposition: HOME SELF-CARE Condition: Stable Instructions (If sedation given, give patient instructions): Chronic Back Pain (DC) Additional Instructions: Please return to the Emergency Department if symptoms worsen or any other concerns. Take Tylenol and ibuprofen for discomfort. Please follow-up with your new doctor concerning this chronic pain. Prescriptions: Ibuprofen [Motrin] 600 mg PO Q8HR PRN #30 tab PRN Reason: Pain Is patient prescribed a controlled substance at d/c from ED?: No Referrals: None,Stated [Primary Care Provider] - 1-2 days
[2021-01-07] MEDS ORDERED: traMADol 50 MG STARTER PACK 3 TAB BTL PO STA (11:27)
== END 2021-01-07 11:37 | disposition home or self-care (01) ==
LOC: EC 10:52
DX: G89.29 Other chronic pain (principal); M54.5 Low back pain; G40.909 Epilepsy, unspecified, not intractable, without status epilepticus; Z87.891 Personal history of nicotine dependence
CPT/HCPCS: 99283

== ENCOUNTER 2021-02-05 10:01 | Emergency (ER) | payer OTHER ==
[2021-02-05 10:06] VITALS: BP 143/68; PULSE 68; RESP 20; TEMP 98.6
[2021-02-05] MEDS ORDERED: traMADol 50 MG STARTER PACK 3 TAB BTL PO STA (10:59)
--- NOTE | 2021-02-05 10:59 | ED ---
Back Pain HPI - General Chief Complaint: Back Pain/Injury Stated Complaint: Back Pain Time Seen by Provider: 02/05/21 10:56 Source: patient Limitations: no limitations - History of Present Illness Initial Comments: Patient is a 40-year-old female with history of chronic back pain, presenting to the emergency Department with complaints of increase in her chronic back pain. Patient states she was helping her significant other change shingles on the rest and started having increasing pain. Patient is well-known to this ER for frequent visits for her back pain. She states she called her doctor's office but they were closed. She denies any fevers or chills, no numbness into and her extremities, no loss of bowel or bladder. She denies any falls or trauma. She has no further complaints at this time. - Related Data Previous Rx's Medication Instructions Recorded Ibuprofen [Motrin] 600 mg PO Q8HR PRN #30 tab 01/07/21 Allergies Allergy/AdvReac Type Severity Reaction Status Date / Time carisoprodol [From Soma] Allergy Unknown Verified 02/05/21 10:06 cyclobenzaprine Allergy Rash/Hives Verified 02/05/21 10:06 methocarbamol [From Robaxin] Allergy Rash/Hives Verified 02/05/21 10:06 naproxen [From Naprosyn] Allergy Nausea Verified 02/05/21 10:06 orphenadrine [From Norflex] Allergy Vomiting Verified 02/05/21 10:06 peanut Allergy Anaphylaxis Verified 02/05/21 10:06 Pork/Porcine Containing Allergy Rash/Hives Verified 02/05/21 10:06 Products [Pork] rice Allergy Rash/Hives Verified 02/05/21 10:06 tree nut [Nut] Allergy Swelling Verified 02/05/21 10:06 ketorolac [From Toradol] AdvReac Vomiting Verified 02/05/21 10:06 muscle relaxers Allergy Unknown Uncoded 02/05/21 10:06 steroids AdvReac Rash/Hives Uncoded 02/05/21 10:06 Review of Systems ROS Statement: Those systems with pertinent positive or pertinent negative responses have been documented in the HPI. ROS Other: All systems not noted in ROS Statement are negative. Past Medical History Past Medical History: Seizure Disorder Additional Past Medical History / Comment(s): cyst on kidney, migraines, back pain, brain tumors, History of Any Multi-Drug Resistant Organisms: None Reported Past Surgical History: Cholecystectomy, Tonsillectomy Past Psychological History: No Psychological Hx Reported Smoking Status: Former smoker Past Alcohol Use History: None Reported Past Drug Use History: None Reported General Exam - General Exam Comments Initial Comments: GENERAL: Patient is well-developed and well-nourished. Patient is nontoxic and in no acute distress. HEAD: Atraumatic, normocephalic. EYES: Pupils equal round and reactive to light, extraocular movements intact, sclera anicteric, conjunctiva are normal. Eyelids were unremarkable. ENT: TMs normal, nares patent, oropharynx clear without exudates. Moist mucous membranes. NECK: Normal range of motion, supple without lymphadenopathy or JVD. LUNGS: Unlabored respirations. Breath sounds clear to auscultation bilaterally and equal. No wheezes rales or rhonchi. HEART: Regular rate and rhythm without murmurs, rubs or gallops. ABDOMEN: Soft, nontender, normoactive bowel sounds. No guarding, no rebound. No masses appreciated. : Deferred MUSCULOSKELETAL: Normal extremities with adequate strength and normal range of motion, no pitting or edema. No clubbing or cyanosis. Normal trunk range of motion. NEUROLOGICAL: Patient is alert and oriented x 3. Motor and sensory are also intact. Cranial nerves II through XII grossly intact. Symmetrical smile. Normal speech, normal gait. PSYCH: Normal mood, normal affect. SKIN: Warm, Dry, normal turgor, no rashes or lesions noted. Limitations: no limitations Course Vital Signs 02/05/21 10:03 Temperature 98.6 F Pulse Rate 68 Respiratory 20 Rate Blood Pressure 143/68 O2 Sat by Pulse 100 Oximetry Medical Decision Making - Medical Decision Making Patient is a 40-year-old female here for chronic back pain, states increases when she was helping a friend work on the wrist. No falls or trauma. No fevers or chills, exam is normal. Patient will be given a starter pack of tramadol. She is stable for discharge. She is urged to follow up with her doctor for her chronic back pain as we cannot continue to give her medication to the ER. She i s in agreement this plan of care. Disposition Clinical Impression: Chronic low back pain Disposition: HOME SELF-CARE Condition: Stable Instructions (If sedation given, give patient instructions): Chronic Back Pain (DC) Additional Instructions: Please return to the Emergency Department if symptoms worsen or any other concerns. Please follow-up with your regular doctor for pain management. Is patient prescribed a controlled substance at d/c from ED?: No Referrals: None,Stated [Primary Care Provider] - 1-2 days Time of Disposition: 10:59
== END 2021-02-05 11:22 | disposition home or self-care (01) ==
LOC: EC 10:01
DX: G89.29 Other chronic pain (principal); M54.5 Low back pain; Z87.891 Personal history of nicotine dependence
CPT/HCPCS: 99283

== ENCOUNTER 2021-02-26 10:55 | Emergency (ER) | payer OTHER ==
[2021-02-26 11:05] VITALS: BP 132/92; PULSE 75; RESP 18; TEMP 98.1
[2021-02-26] MEDS ORDERED: traMADol 50 MG STARTER PACK 3 TAB BTL PO STA (11:10)
--- NOTE | 2021-02-26 11:11 | ED ---
Back Pain HPI - General Chief Complaint: Back Pain/Injury Stated Complaint: BACK PAIN Time Seen by Provider: 02/26/21 11:04 Source: patient Limitations: no limitations - History of Present Illness Initial Comments: 40-year-old female presents emergency Department with a chief complaint of back pain. Patient reports chronic history of back pain and currently is seeing an product support specialist. States she is currently waiting for MRI as well. States she went to an urgent care yesterday and was only prescribed ibuprofen which is not resolving her symptoms. Patient reports the only thing that helps with the pain is trouble. She denies any saddle anesthesia, urinary retention with overflow incontinence or bowel incontinence. Reports the pain is located in the paraspinal region, bilaterally in the lumbar spine. - Related Data Previous Rx's Medication Instructions Recorded Ibuprofen [Motrin] 600 mg PO Q8HR PRN #30 tab 01/07/21 Allergies Allergy/AdvReac Type Severity Reaction Status Date / Time carisoprodol [From Soma] Allergy Unknown Verified 02/26/21 11:04 cyclobenzaprine Allergy Rash/Hives Verified 02/26/21 11:04 methocarbamol [From Robaxin] Allergy Rash/Hives Verified 02/26/21 11:04 naproxen [From Naprosyn] Allergy Nausea Verified 02/26/21 11:04 orphenadrine [From Norflex] Allergy Vomiting Verified 02/26/21 11:04 peanut Allergy Anaphylaxis Verified 02/26/21 11:04 Pork/Porcine Containing Allergy Rash/Hives Verified 02/26/21 11:04 Products [Pork] rice Allergy Rash/Hives Verified 02/26/21 11:04 tree nut [Nut] Allergy Swelling Verified 02/26/21 11:04 ketorolac [From Toradol] AdvReac Vomiting Verified 02/26/21 11:04 muscle relaxers Allergy Unknown Uncoded 02/26/21 11:04 steroids AdvReac Rash/Hives Uncoded 02/26/21 11:04 Review of Systems ROS Statement: Those systems with pertinent positive or pertinent negative responses have been documented in the HPI. ROS Other: All systems not noted in ROS Statement are negative. Past Medical History Past Medical History: Seizure Disorder Additional Past Medical History / Comment(s): cyst on kidney, migraines, back pain, brain tumors, History of Any Multi-Drug Resistant Organisms: None Reported Past Surgical History: Cholecystectomy, Tonsillectomy Past Psychological History: No Psychological Hx Reported Smoking Status: Former smoker Past Alcohol Use History: None Reported Past Drug Use History: None Reported General Exam Limitations: no limitations General appearance: alert, in no apparent distress Head exam: Present: atraumatic, normocephalic, normal inspection Eye exam: Present: normal appearance, PERRL, EOMI Pupils: Present: normal accommodation ENT exam: Present: normal exam, normal oropharynx, mucous membranes moist, TM's normal bilaterally, normal external ear exam Neck exam: Present: normal inspection, full ROM. Absent: tenderness Respiratory exam: Present: normal lung sounds bilaterally. Absent: respiratory distress, wheezes, rales, rhonchi, stridor, chest wall tenderness, accessory muscle use Cardiovascular Exam: Present: regular rate, normal rhythm, normal heart sounds. Absent: systolic murmur Extremities exam: Present: normal inspection, full ROM, normal capillary refill. Absent: tenderness, pedal edema, joint swelling, calf tenderness Back exam: Present: normal inspection, full ROM, tenderness, paraspinal tenderness (Bilateral paraspinal tenderness in the lumbosacral region.). Absent: CVA tenderness (R), CVA tenderness (L), muscle spasm, vertebral tenderness Neurological exam: Present: alert, oriented X3, normal gait Psychiatric exam: Present: normal affect, normal mood Skin exam: Present: warm, dry, intact, normal color Course Vital Signs 02/26/21 11:02 Temperature 98.1 F Pulse Rate 75 Respiratory 18 Rate Blood Pressure 132/92 O2 Sat by Pulse 99 Oximetry Medical Decision Making - Medical Decision Making 40-year-old female with history of chronic back pain presents to emergency Department with a chief complaint of back pain. Physical examination, paraspinal tenderness in the lumbosacral region. No mid spinal tenderness. I gave the patient had tramadol starter pack. Advised the side effects of the medication. Otherwise Tylenol or Motrin for pain. She is ready seeing an product support specialist and is getting an MRI. No concern for cauda equina. Ret urn parameters discussed with patient is an attending ago. Case discussed with Disposition Clinical Impression: Chronic low back pain, Strain of lumbar region Disposition: HOME SELF-CARE Condition: Stable Instructions (If sedation given, give patient instructions): Acute Low Back Pain (ED) Additional Instructions: Please return to the Emergency Department if symptoms worsen or any other concerns. Is patient prescribed a controlled substance at d/c from ED?: No Referrals: Nonstaff,Physician [Primary Care Provider] - 1-2 days Time of Disposition: 11:10
== END 2021-02-26 11:19 | disposition home or self-care (01) ==
LOC: EC 10:55
DX: S39.012A Strain of muscle, fascia and tendon of lower back, initial encounter (principal); G40.909 Epilepsy, unspecified, not intractable, without status epilepticus; G43.909 Migraine, unspecified, not intractable, without status migrainosus; Z87.891 Personal history of nicotine dependence; X58.XXXA Exposure to other specified factors, initial encounter
CPT/HCPCS: 99283

== ENCOUNTER 2021-04-01 09:26 | Emergency (ER) | payer OTHER ==
[2021-04-01 09:30] VITALS: BP 129/82; PULSE 74; RESP 18; TEMP 98.5
--- NOTE | 2021-04-01 10:27 | ED ---
Back Pain HPI - General Chief Complaint: Back Pain/Injury Stated Complaint: Back Pain Time Seen by Provider: 04/01/21 10:04 Source: patient Limitations: no limitations - History of Present Illness Initial Comments: 40-year-old female patient presents to the emergency department today for evaluation of low back pain. Patient states pain radiates down the bilateral extremities. Denies numbness or tingling to the lower extremities. Denies saddle anesthesia or loss of bowel or bladder control. Patient states her pain is chronic from previous fractures and bulging disks. Not having any new symptoms. She is requesting tramadol. Patient is seen frequently in this emergency department for similar complaints. - Related Data Previous Rx's Medication Instructions Recorded Ibuprofen [Motrin] 600 mg PO Q8HR PRN #30 tab 01/07/21 Allergies Allergy/AdvReac Type Severity Reaction Status Date / Time baclofen Allergy Rash/Hives Verified 04/01/21 10:22 carisoprodol [From Soma] Allergy Unknown Verified 04/01/21 10:22 cyclobenzaprine Allergy Rash/Hives Verified 04/01/21 10:22 methocarbamol [From Robaxin] Allergy Rash/Hives Verified 04/01/21 10:22 naproxen [From Naprosyn] Allergy Nausea Verified 04/01/21 10:22 orphenadrine [From Norflex] Allergy Vomiting Verified 04/01/21 10:22 peanut Allergy Anaphylaxis Verified 04/01/21 10:22 Pork/Porcine Containing Allergy Rash/Hives Verified 04/01/21 10:22 Products [Pork] rice Allergy Rash/Hives Verified 04/01/21 10:22 tree nut [Nut] Allergy Swelling Verified 04/01/21 10:22 ketorolac [From Toradol] AdvReac Vomiting Verified 04/01/21 10:22 muscle relaxers Allergy Unknown Uncoded 04/01/21 09:30 steroids AdvReac Rash/Hives Uncoded 04/01/21 09:30 Review of Systems ROS Statement: Those systems with pertinent positive or pertinent negative responses have been documented in the HPI. ROS Other: All systems not noted in ROS Statement are negative. Past Medical History Past Medical History: Seizure Disorder Additional Past Medical History / Comment(s): cyst on kidney, migraines, back pain, brain tumors, History of Any Multi-Drug Resistant Organisms: None Reported Past Surgical History: Cholecystectomy, Tonsillectomy Past Psychological History: No Psychological Hx Reported Smoking Status: Former smoker Past Alcohol Use History: None Reported Past Drug Use History: None Reported General Exam Limitations: no limitations General appearance: alert, in no apparent distress Respiratory exam: Present: normal lung sounds bilaterally. Absent: respiratory distress, wheezes, rales, rhonchi, stridor Cardiovascular Exam: Present: regular rate, normal rhythm, normal heart sounds. Absent: systolic murmur, diastolic murmur, rubs, gallop, clicks GI/Abdominal exam: Present: soft, normal bowel sounds. Absent: distended, tenderness, guarding, rebound, rigid Extremities exam: Present: normal inspection, other (Skin to the lower extremities is pink, warm, dry. Cap refill less than 3 seconds. Pedal and posttibial pulses are 2+.) Back exam: Present: normal inspection, paraspinal tenderness (Bilateral lower). Absent: vertebral tenderness Neurological exam: Present: alert, oriented X3, CN II-XII intact, other (Strength to the lower extremities is 5/5.) Psychiatric exam: Present: normal affect, normal mood Skin exam: Present: warm, dry, intact, normal color. Absent: rash Course Vital Signs 04/01/21 04/01/21 04/01/21 09:27 10:29 10:43 Temperature 98.5 F 98.5 F Pulse Rate 74 74 Respiratory 18 18 18 Rate Blood Pressure 129/82 129/82 O2 Sat by Pulse 98 98 Oximetry Medical Decision Making - Medical Decision Making 40-year-old female patient presents to the emergency department today for evaluation of low back pain with radiation down the legs. Patient has chronic pain. Denies any new symptoms. She has no concerning symptoms for cauda equina. She is offered Toradol injection, she declines which she is requesting tramadol. She was informed that she would not be receiving narcotic medication for chronic pain. She is instructed father primary care physician, discuss referral to pain management. Return parameters were discussed in detail. She verbalizes understanding. Case discussed with my attending Dr. Kessler. Disposition Clinical Impression: Chronic back pain Disposition: HOME SELF-CARE Condition: Good Instructions (If sedation given, give patient instructions): Chronic Back Pain (DC) Additional Instructions: Follow-up with the primary care physician for recheck. Discuss getting into paint brush maker. Return for any new, worsening, or concerning symptoms. Is patient prescribed a controlled substance at d/c from ED?: No Referrals: None,Stated [Primary Care Provider] - 1-2 days Time of Disposition: 10:27
== END 2021-04-01 10:47 | disposition home or self-care (01) ==
LOC: EC 09:26
DX: M54.5 Low back pain (principal); G89.29 Other chronic pain; Z87.891 Personal history of nicotine dependence; Z90.49 Acquired absence of other specified parts of digestive tract; Z90.09 Acquired absence of other part of head and neck
CPT/HCPCS: 99283

== ENCOUNTER 2021-05-05 21:02 | Emergency (ER) | payer OTHER ==
[2021-05-05 21:15] VITALS: BP 114/64; PULSE 84; RESP 19; TEMP 98.6
[2021-05-05] MEDS ORDERED: traMADol 50 MG STARTER PACK 3 TAB BTL PO STA (21:36)
--- NOTE | 2021-05-05 21:54 | ED ---
Back Pain HPI - General Chief Complaint: Back Pain/Injury Stated Complaint: Back Pain Time Seen by Provider: 05/05/21 21:23 Source: patient - History of Present Illness Initial Comments: 40-year-old female presents to emergency department with a chief complaint of back pain. She does report history of chronic back pain and her indices a primary animal care worker. She is waiting approval to go to an information technology specialist. Denies saddle anesthesia, urinary retention with overflow or bowel incontinence. - Related Data Previous Rx's Medication Instructions Recorded Ibuprofen [Motrin] 600 mg PO Q8HR PRN #30 tab 01/07/21 Allergies Allergy/AdvReac Type Severity Reaction Status Date / Time baclofen Allergy Rash/Hives Verified 05/05/21 21:15 carisoprodol [From Soma] Allergy Unknown Verified 05/05/21 21:15 cyclobenzaprine Allergy Rash/Hives Verified 05/05/21 21:15 methocarbamol [From Robaxin] Allergy Rash/Hives Verified 05/05/21 21:15 naproxen [From Naprosyn] Allergy Nausea Verified 05/05/21 21:15 orphenadrine [From Norflex] Allergy Vomiting Verified 05/05/21 21:15 peanut Allergy Anaphylaxis Verified 05/05/21 21:15 Pork/Porcine Containing Allergy Rash/Hives Verified 05/05/21 21:15 Products [Pork] rice Allergy Rash/Hives Verified 05/05/21 21:15 tree nut [Nut] Allergy Swelling Verified 05/05/21 21:15 ketorolac [From Toradol] AdvReac Vomiting Verified 05/05/21 21:15 muscle relaxers Allergy Unknown Uncoded 05/05/21 21:15 steroids AdvReac Rash/Hives Uncoded 05/05/21 21:15 Review of Systems ROS Statement: Those systems with pertinent positive or pertinent negative responses have been documented in the HPI. ROS Other: All systems not noted in ROS Statement are negative. Past Medical History Past Medical History: Seizure Disorder Additional Past Medical History / Comment(s): cyst on kidney, migraines, back pain, brain tumors, History of Any Multi-Drug Resistant Organisms: None Reported Past Surgical History: Cholecystectomy, Tonsillectomy Past Psychological History: No Psychological Hx Reported Smoking Status: Former smoker Past Alcohol Use History: None Reported Past Drug Use History: None Reported General Exam Limitations: no limitations General appearance: alert, in no apparent distress Head exam: Present: atraumatic, normocephalic, normal inspection Eye exam: Present: normal appearance, PERRL, EOMI Pupils: Present: normal accommodation ENT exam: Present: normal exam, normal oropharynx, mucous membranes moist Neck exam: Present: normal inspection, full ROM. Absent: tenderness Respiratory exam: Present: normal lung sounds bilaterally. Absent: respiratory distress Cardiovascular Exam: Present: regular rate, normal rhythm, normal heart sounds Extremities exam: Present: normal inspection, full ROM, normal capillary refill. Absent: tenderness Back exam: Present: normal inspection, full ROM, tenderness, paraspinal tenderness, vertebral tenderness. Absent: CVA tenderness (R), CVA tenderness (L), muscle spasm Neurological exam: Present: alert, oriented X3, normal gait Psychiatric exam: Present: normal affect, normal mood Skin exam: Present: warm, dry, intact, normal color Course Vital Signs 05/05/21 21:12 Temperature 98.6 F Pulse Rate 84 Respiratory 19 Rate Blood Pressure 114/64 O2 Sat by Pulse 98 Oximetry Medical Decision Making - Medical Decision Making 40-year-old female with acute on chronic back pain. Given tramadol starter pack. Discharge with outpatient follow-up. Disposition Clinical Impression: Mechanical back pain Disposition: HOME SELF-CARE Condition: Stable Instructions (If sedation given, give patient instructions): Acute Low Back Pain (ED) Additional Instructions: Please return to the Emergency Department if symptoms worsen or any other concerns. Is patient prescribed a controlled substance at d/c from ED?: No Referrals: None,Stated [Primary Care Provider] - 1-2 days Ilya Lee MD [STAFF PHYSICIAN] - 1-2 days Time of Disposition: 21:54
== END 2021-05-05 22:15 | disposition home or self-care (01) ==
LOC: EC 21:02
DX: G89.29 Other chronic pain (principal); M54.9 Dorsalgia, unspecified; G40.909 Epilepsy, unspecified, not intractable, without status epilepticus; G43.909 Migraine, unspecified, not intractable, without status migrainosus; Z87.891 Personal history of nicotine dependence
CPT/HCPCS: 99283

== ENCOUNTER 2021-05-15 | Emergency (ER) | payer OTHER | END 2021-05-15 18:58 | disposition home or self-care (01) ==

== ENCOUNTER 2021-07-10 19:07 | Emergency (ER) | payer OTHER ==
[2021-07-10 19:25] VITALS: BP 130/88; PULSE 73; RESP 18; TEMP 98.1
[2021-07-10] MEDS ORDERED: KETOROLAC 15 MG/ML 1 ML VIAL IM STA (19:38)
[2021-07-10] MEDS ORDERED: traMADol 50 MG STARTER PACK 3 TAB BTL PO STA (19:38)
--- NOTE | 2021-07-10 19:39 | ED ---
Back Pain HPI - General Chief Complaint: Back Pain/Injury Stated Complaint: back pain Time Seen by Provider: 07/10/21 19:26 Source: patient Limitations: no limitations - History of Present Illness Initial Comments: 40 year-old female patient presents to the emergency department for evaluation of back pain. Patient has chronic back pain. 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 States it feels like a burning pain over the entirety of her back. Denies any chest pain, shortness of breath, nausea, vomiting, or abdominal pain. Denies fever or chills. She denies any radiation of the pain down her legs. Denies numbness or tingling to lower extremities. Denies saddle anesthesia or loss of bowel or bladder control. States she did recently establish with a primary care physician who has MRI scheduled for her this month. She has been taking [id number] ibuprofen and Tylenol without relief. Patient denies any recent rash, cough, nausea, vomiting, diarrhea, constipation, back pain, dizziness, weakness, hematuria, dysuria, urinary urgency, urinary frequency, headache, visual changes, or any other complaints. - Related Data Previous Rx's Medication Instructions Recorded Ibuprofen [Motrin] 600 mg PO Q8HR PRN #30 tab 01/07/21 Allergies Allergy/AdvReac Type Severity Reaction Status Date / Time baclofen Allergy Rash/Hives Verified 07/10/21 19:21 carisoprodol [From Soma] Allergy Unknown Verified 07/10/21 19:21 cyclobenzaprine Allergy Rash/Hives Verified 07/10/21 19:21 methocarbamol [From Robaxin] Allergy Rash/Hives Verified 07/10/21 19:21 naproxen [From Naprosyn] Allergy Nausea Verified 07/10/21 19:21 orphenadrine [From Norflex] Allergy Vomiting Verified 07/10/21 19:21 peanut Allergy Anaphylaxis Verified 07/10/21 19:21 Pork/Porcine Containing Allergy Rash/Hives Verified 07/10/21 19:21 Products [Pork] rice Allergy Rash/Hives Verified 07/10/21 19:21 tree nut [Nut] Allergy Swelling Verified 07/10/21 19:21 ketorolac [From Toradol] AdvReac Vomiting Verified 07/10/21 19:21 muscle relaxers Allergy Unknown Uncoded 07/10/21 19:21 steroids AdvReac Rash/Hives Uncoded 07/10/21 19:21 Review of Systems ROS Statement: Those systems with pertinent positive or pertinent negative responses have been documented in the HPI. ROS Other: All systems not noted in ROS Statement are negative. Past Medical History Past Medical History: Seizure Disorder Additional Past Medical History / Comment(s): cyst on kidney, migraines, back pain, brain tumors, History of Any Multi-Drug Resistant Organisms: None Reported Past Surgical History: Cholecystectomy, Tonsillectomy Past Psychological History: No Psychological Hx Reported Smoking Status: Former smoker Past Alcohol Use History: None Reported Past Drug Use History: None Reported General Exam Limitations: no limitations General appearance: alert, in no apparent distress, other (This is a well- developed, well-nourished adult female patient in no acute distress. Vital signs upon presentation are temperature 98.1F, pulse 73, respirations 18, blood pressure 130/88, pulse ox 99% on room air.) Eye exam: Present: normal appearance, PERRL, EOMI. Absent: scleral icterus, conjunctival injection, periorbital swelling ENT exam: Present: normal exam, normal oropharynx, mucous membranes moist Respiratory exam: Present: normal lung sounds bilaterally. Absent: respiratory distress, wheezes, rales, rhonchi, stridor Cardiovascular Exam: Present: regular rate, normal rhythm, normal heart sounds. Absent: systolic murmur, diastolic murmur, rubs, gallop, clicks GI/Abdominal exam: Present: soft, normal bowel sounds. Absent: distended, tenderness, guarding, rebound, rigid Back exam: Present: normal inspection. Absent: vertebral tenderness Neurological exam: Present: alert, oriented X3, CN II-XII intact Psychiatric exam: Present: normal affect, normal mood Skin exam: Present: warm, dry, intact, normal color. Absent: rash Course Vital Signs 07/10/21 19:22 Temperature 98.1 F Pulse Rate 73 Respiratory 18 Rate Blood Pressure 130/88 O2 Sat by Pulse 99 Oximetry Medical Decision Making - Medical Decision Making 40 year-old female patient presents to the emergency department for evaluation of back pain. She has chronic back pain. Does have MRI coming up this month. Denies any new pain but states her OTC medications are not working. No concerning symptoms for cauda equina. He'll be given IM dose of Toradol. She'll be given starter pack for Ultram. Instructed to follow-up with her primary care physician as soon as possible. Return parameters were discussed in detail. She verbalizes understanding and agrees with this plan. My attending is Dr. Leal. Disposition Clinical Impression: Back pain Disposition: HOME SELF-CARE Condition: Good Instructions (If sedation given, give patient instructions): Back Pain (ED) Additional Instructions: Take medication sparingly as needed for severe pain. Follow-up through primary care physician for recheck as soon as possible. Return to the emergency department for any new, worsening, or concerning symptoms. Is patient prescribed a controlled substance at d/c from ED?: No Referrals: None,Stated [Primary Care Provider] - 1-2 days Time of Disposition: 19:39
== END 2021-07-10 19:50 | disposition home or self-care (01) ==
LOC: EC 19:07
DX: M54.9 Dorsalgia, unspecified (principal); G40.909 Epilepsy, unspecified, not intractable, without status epilepticus; Z87.891 Personal history of nicotine dependence
CPT/HCPCS: 99283; 96372; J1885

== ENCOUNTER 2021-07-24 18:18 | Emergency (ER) | payer OTHER ==
[2021-07-24 18:24] VITALS: BP 126/85; PULSE 79; RESP 20; TEMP 98.3
[2021-07-24] MEDS ORDERED: traMADol 50 MG STARTER PACK 3 TAB BTL PO STA (19:11)
--- NOTE | 2021-07-24 19:14 | ED ---
Back Pain HPI - General Chief Complaint: Back Pain/Injury Stated Complaint: back pain Time Seen by Provider: 07/24/21 18:55 Source: patient, RN notes reviewed Limitations: no limitations - History of Present Illness Initial Comments: Patient is a 40-year-old female that presents to the emergency department complaining of chronic low back pain. 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 She notes that she is supposed to see a emr implementation specialist on the fourth but does not have any medications to help pain. She notes that tramadol and Motrinhelp and she ran out of tramadol. She notes that she was here several weeks ago and made a tramadol starter pack last until recently. She denied any other issues or complaints. She denied any saddle anesthesia weakness numbness tingling or bilateral lower extremities. She denied any bladder or bowel incontinence or retention. Denied any chest pain shortness of breath headache nausea vomiting diarrhea constipation fever fatigue chills. - Related Data Previous Rx's Medication Instructions Recorded Ibuprofen [Motrin] 600 mg PO Q8HR PRN #30 tab 01/07/21 Allergies Allergy/AdvReac Type Severity Reaction Status Date / Time baclofen Allergy Rash/Hives Verified 07/24/21 18:24 carisoprodol [From Soma] Allergy Unknown Verified 07/24/21 18:24 cyclobenzaprine Allergy Rash/Hives Verified 07/24/21 18:24 methocarbamol [From Robaxin] Allergy Rash/Hives Verified 07/24/21 18:24 naproxen [From Naprosyn] Allergy Nausea Verified 07/24/21 18:24 orphenadrine [From Norflex] Allergy Vomiting Verified 07/24/21 18:24 peanut Allergy Anaphylaxis Verified 07/24/21 18:24 Pork/Porcine Containing Allergy Rash/Hives Verified 07/24/21 18:24 Products [Pork] rice Allergy Rash/Hives Verified 07/24/21 18:24 tree nut [Nut] Allergy Swelling Verified 07/24/21 18:24 ketorolac [From Toradol] AdvReac Vomiting Verified 07/24/21 18:24 muscle relaxers Allergy Unknown Uncoded 07/24/21 18:24 steroids AdvReac Rash/Hives Uncoded 07/24/21 18:24 Review of Systems ROS Statement: Those systems with pertinent positive or pertinent negative responses have been documented in the HPI. ROS Other: All systems not noted in ROS Statement are negative. Past Medical History Past Medical History: Seizure Disorder Additional Past Medical History / Comment(s): cyst on kidney, migraines, back pain, brain tumors, History of Any Multi-Drug Resistant Organisms: None Reported Past Surgical History: Cholecystectomy, Tonsillectomy Past Psychological History: No Psychological Hx Reported Smoking Status: Former smoker Past Alcohol Use History: None Reported Past Drug Use History: None Reported General Exam Limitations: no limitations General appearance: alert, in no apparent distress Head exam: Present: atraumatic, normocephalic, normal inspection Eye exam: Present: normal appearance, PERRL, EOMI. Absent: scleral icterus, conjunctival injection, periorbital swelling Neck exam: Present: normal inspection Respiratory exam: Present: normal lung sounds bilaterally. Absent: respiratory distress, wheezes, rales, rhonchi, stridor Cardiovascular Exam: Present: regular rate, normal rhythm, normal heart sounds. Absent: systolic murmur, diastolic murmur, rubs, gallop, clicks Extremities exam: Present: normal inspection, full ROM, normal capillary refill. Absent: tenderness, pedal edema, joint swelling, calf tenderness Back exam: Present: normal inspection, tenderness (Low back) Neurological exam: Present: alert, oriented X3 Psychiatric exam: Present: normal affect, normal mood Skin exam: Present: warm, dry, intact, normal color. Absent: rash Course Vital Signs 07/24/21 18:22 Temperature 98.3 F Pulse Rate 79 Respiratory 20 Rate Blood Pressure 126/85 O2 Sat by Pulse 98 Oximetry Medical Decision Making - Medical Decision Making 40-year-old female complaining of chronic low back pain with no pain medication at home stating tramadol is the only thing that helps. Tramadol starter pack ordered. Patient declined the need for any imaging as she is supposed to have an MRI done soon. Case discussed with Dr. Sen, patient can discharge home. Disposition Clinical Impression: Back pain Disposition: HOME SELF-CARE Condition: Stable Instructions (If sedation given, give patient instructions): Acute Low Back Pain (ED) Additional Instructions: Please return to the Emergency Department if symptoms worsen or any other concerns. Is patient prescribed a controlled substance at d/c from ED?: No Referrals: None,Stated [Primary Care Provider] - 1-2 days Time of Disposition: 19:14
== END 2021-07-24 19:32 | disposition home or self-care (01) ==
LOC: EC 18:18
DX: M54.5 Low back pain (principal); G40.909 Epilepsy, unspecified, not intractable, without status epilepticus; Z87.891 Personal history of nicotine dependence
CPT/HCPCS: 99283

== ENCOUNTER 2022-05-20 07:51 | Emergency (ER) | payer OTHER ==
[2022-05-20 08:02] VITALS: BP 133/87; PULSE 88; RESP 18; TEMP 98.3
[2022-05-20] MEDS ORDERED: ACETAMINOPHEN TAB 500 MG TAB PO STA (08:12)
--- NOTE | 2022-05-20 08:17 | ED ---
Back Pain HPI - General Chief Complaint: Back Pain/Injury Stated Complaint: Back Pain Time Seen by Provider: 05/20/22 08:04 Source: patient Limitations: no limitations - History of Present Illness Initial Comments: Patient is a 41-year-old female presenting with chief complaint of back pain. Patient states this pain feels consistent with her chronic back pain. He states that about a month ago she was bending over when doing laundry which caused her pain to flare up. Patient states she has been taking Motrin with little relief. Patient is trying to get in with a new PCP and pain management. Patient denies any loss of bowel or bladder control or saddle paresthesia. He denies any dysuria, hematuria, urgency, frequency. Denies fever, chills, chest pain, shortness of breath, abdominal pain. - Related Data Previous Rx's Medication Instructions Recorded Ibuprofen [Motrin] 600 mg PO Q8HR PRN #30 tab 01/07/21 Ketorolac [Toradol] 10 mg PO Q6HR PRN #15 tab 05/20/22 Allergies Allergy/AdvReac Type Severity Reaction Status Date / Time baclofen Allergy Rash/Hives Verified 05/20/22 08:02 carisoprodol [From Soma] Allergy Unknown Verified 05/20/22 08:02 cyclobenzaprine Allergy Rash/Hives Verified 05/20/22 08:02 methocarbamol [From Robaxin] Allergy Rash/Hives Verified 05/20/22 08:02 naproxen [From Naprosyn] Allergy Nausea Verified 05/20/22 08:02 orphenadrine [From Norflex] Allergy Vomiting Verified 05/20/22 08:02 peanut Allergy Anaphylaxis Verified 05/20/22 08:02 Pork/Porcine Containing Allergy Rash/Hives Verified 05/20/22 08:02 Products [Pork] rice Allergy Rash/Hives Verified 05/20/22 08:02 tree nut [Nut] Allergy Swelling Verified 05/20/22 08:02 ketorolac [From Toradol] AdvReac Vomiting Verified 05/20/22 08:02 muscle relaxers Allergy Unknown Uncoded 05/20/22 08:02 steroids AdvReac Rash/Hives Uncoded 05/20/22 08:02 Review of Systems ROS Statement: Those systems with pertinent positive or pertinent negative responses have been documented in the HPI. ROS Other: All systems not noted in ROS Statement are negative. Past Medical History Past Medical History: Seizure Disorder Additional Past Medical History / Comment(s): cyst on kidney, migraines, back pain, brain tumors, History of Any Multi-Drug Resistant Organisms: None Reported Past Surgical History: Cholecystectomy, Tonsillectomy Past Psychological History: No Psychological Hx Reported Smoking Status: Former smoker Past Alcohol Use History: None Reported Past Drug Use History: None Reported General Exam Limitations: no limitations General appearance: alert, in no apparent distress Head exam: Present: atraumatic, normocephalic, normal inspection Eye exam: Present: normal appearance, EOMI. Absent: scleral icterus, periorbital swelling Neck exam: Present: normal inspection Respiratory exam: Present: normal lung sounds bilaterally. Absent: respiratory distress, wheezes, rales, rhonchi, stridor Cardiovascular Exam: Present: regular rate, normal rhythm, normal heart sounds. Absent: systolic murmur, diastolic murmur, rubs, gallop, clicks Back exam: Present: normal inspection, paraspinal tenderness. Absent: CVA tenderness (R), CVA tenderness (L), vertebral tenderness Neurological exam: Present: alert, oriented X3, CN II-XII intact Psychiatric exam: Present: normal affect, normal mood Skin exam: Present: warm, dry, intact, normal color. Absent: rash Course Vital Signs 05/20/22 07:58 Temperature 98.3 F Pulse Rate 88 Respiratory 18 Rate Blood Pressure 133/87 O2 Sat by Pulse 98 Oximetry Medical Decision Making - Medical Decision Making Patient is a 41-year-old female presenting with chief complaint of back pain. Patient has a history of chronic back pain, states that this feels consistent with her chronic pain. No red flag symptoms. On examination there is no vertebral tenderness, + paraspinal muscle tenderness. Patient is given pain medication. Instructed to follow-up with PCP this week. Report back to ER with any new or worsening symptoms. Discussed return parameters and answered all questions. Patient conveyed verbal understanding and agreed to the plan. I discussed this case with my attending Dr. Harper. Disposition Clinical Impression: Mechanical back pain Disposition: HOME SELF-CARE Condition: Good Instructions (If sedation given, give patient instructions): Chronic Back Pain (DC), Lower Back Exercises (ED) Additional Instructions: Follow-up with PCP this week. Report back to ER with any new or worsening symptoms. Take medication as prescribed. Do not take Toradol with Motrin or Aleve. Prescriptions: Ketorolac [Toradol] 10 mg PO Q6HR PRN #15 tab PRN Reason: Pain Is patient prescribed a controlled substance at d/c from ED?: No Referrals: None,Stated [Primary Care Provider] - 05/22/22 Time of Disposition: 08:31
[2022-05-20] MEDS ORDERED: LIDOCAINE 5% PATCH TOPICAL SCH (09:00)
== END 2022-05-20 08:35 | disposition home or self-care (01) ==
LOC: EC 07:51
DX: M54.50 Low back pain, unspecified (principal); Z87.891 Personal history of nicotine dependence; Z91.010 Allergy to peanuts; Z88.6 Allergy status to analgesic agent; Z88.5 Allergy status to narcotic agent; Z88.8 Allergy status to other drugs, medicaments and biological substances; Z91.048 Other nonmedicinal substance allergy status
CPT/HCPCS: 99283

== ENCOUNTER 2024-05-07 07:08 | Emergency (ER) | payer OTHER ==
[2024-05-07 07:14] VITALS: RESP 16; TEMP 98.1
--- NOTE | 2024-05-07 07:23 | ED ---
Back Pain HPI - General Chief Complaint: Back Pain/Injury Stated Complaint: back pain Time Seen by Provider: 05/07/24 07:16 Source: patient, RN notes reviewed Limitations: no limitations - History of Present Illness Initial Comments: 43-year-old female presents emergency department complaint of back pain. Patient states she was helping put a pool together and states that she felt something pop in her back. She has a history of chronic back pain. She denies any bowel, bladder incontinence retention no saddle anesthesias. She denies any abdominal pain no other associated symptoms. - Related Data Previous Rx's Medication Instructions Recorded Ibuprofen [Motrin] 600 mg PO Q8HR PRN #30 tab 01/07/21 Ketorolac [Toradol] 10 mg PO Q6HR PRN #15 tab 05/20/22 traMADol HCl [Ultram] 50 mg PO Q6H PRN #12 tab 05/07/24 Allergies Allergy/AdvReac Type Severity Reaction Status Date / Time baclofen Allergy Rash/Hives Verified 05/07/24 07:14 carisoprodol [From Soma] Allergy Unknown Verified 05/07/24 07:14 cyclobenzaprine Allergy Rash/Hives Verified 05/07/24 07:14 methocarbamol [From Robaxin] Allergy Rash/Hives Verified 05/07/24 07:14 naproxen [From Naprosyn] Allergy Nausea Verified 05/07/24 07:14 orphenadrine [From Norflex] Allergy Vomiting Verified 05/07/24 07:14 peanut Allergy Anaphylaxis Verified 05/07/24 07:14 Pork/Porcine Containing Allergy Rash/Hives Verified 05/07/24 07:14 Products [Pork] rice Allergy Rash/Hives Verified 05/07/24 07:14 tree nut [Nut] Allergy Swelling Verified 05/07/24 07:14 ketorolac [From Toradol] AdvReac Vomiting Verified 05/07/24 07:14 muscle relaxers Allergy Unknown Uncoded 05/07/24 07:14 steroids AdvReac Rash/Hives Uncoded 05/07/24 07:14 Review of Systems ROS Statement: Those systems with pertinent positive or pertinent negative responses have been documented in the HPI. ROS Other: All systems not noted in ROS Statement are negative. Past Medical History Past Medical History: Seizure Disorder Additional Past Medical History / Comment(s): cyst on kidney, migraines, back pain, brain tumors, History of Any Multi-Drug Resistant Organisms: None Reported Past Surgical History: Cholecystectomy, Tonsillectomy Past Psychological History: No Psychological Hx Reported Smoking Status: Former smoker Past Alcohol Use History: None Reported Past Drug Use History: None Reported General Exam Limitations: no limitations General appearance: alert, in no apparent distress Head exam: Present: atraumatic, normocephalic, normal inspection Respiratory exam: Present: normal lung sounds bilaterally. Absent: respiratory distress, wheezes, rales, rhonchi, stridor Cardiovascular Exam: Present: regular rate, normal rhythm, normal heart sounds. Absent: systolic murmur, diastolic murmur, rubs, gallop, clicks GI/Abdominal exam: Present: soft, normal bowel sounds. Absent: distended, tenderness, guarding, rebound, rigid Extremities exam: Present: normal inspection, full ROM, normal capillary refill. Absent: tenderness, pedal edema, joint swelling, calf tenderness Back exam: Present: full ROM, tenderness, muscle spasm, paraspinal tenderness. Absent: vertebral tenderness Course Vital Signs 05/07/24 07:12 Temperature 98.1 F Pulse Rate 72 Respiratory 16 Rate Blood Pressure 147/93 O2 Sat by Pulse 100 Oximetry Medical Decision Making - Medical Decision Making Was pt. sent in by a medical professional or institution (, PA, PRODUCTION OPERATIONS MANAGER, urgent care, hospital, or half-way...) When possible be specific @ -No Did you speak to anyone other than the patient for history (EMS, parent, family, police, friend...)? What history was obtained from this source @ -No Did you review nursing and triage notes (agree or disagree)? Why? @ -I reviewed and agree with nursing and triage notes Were old charts reviewed (outside hosp., previous admission, EMS record, old EKG, old radiological studies, urgent care reports/EKG's, half-way records)? Report findings @ -Reviewed prior lumbar x-ray Differential Diagnosis (chest pain, altered mental status, abdominal pain women, abdominal pain men, vaginal bleeding, weakness, fever, dyspnea, syncope, headache, dizziness, GI bleed, back pain, seizure, CVA, palpatations, mental health, musculoskeletal)? @ -Differential Back Pain: Strain, zoster, cauda equina syndrome, epidural abscess, vertebral osteomyelitis, discitis, fracture, subluxation, disc herniation, DJD, spinal stenosis, dissection, AAA, pancreatitis, peptic ulcer disease, pyelonephritis, kidney stone, this is not meant to be an all-inclusive list. EKG interpreted by me (3pts min.). @ -None X-rays interpreted by me (1pt min.). @ -None done CT interpreted by me (1pt min.). @ -None done U/S interpreted by me (1pt. min.). @ -None done What testing was considered but not performed or refused? (CT, X-rays, U/S, labs)? Why? @ -None What meds were considered but not given or refused? Why? @ -None Did you discuss the management of the patient with other professionals (professionals i.e. , PA, PRODUCTION OPERATIONS MANAGER, lab, RT, psych nurse, public health social worker, cable repairer, teacher, surveillance dual rate officer, case advocate)? Give summary @ -No Was smoking cessation discussed for >3mins.? @ -No Was critical care preformed (if so, how long)? @ -No Were there social determinants of health that impacted care today? How? (Jenae elessness, low income, unemployed, alcoholism, drug addiction, transportation, low edu. Level, literacy, decrease access to med. care, halfway, rehab)? @ -No Was there de-escalation of care discussed even if they declined (Discuss DNR or withdrawal of care, Hospice)? DNR status @ -No What co-morbidities impacted this encounter? (DM, HTN, Smoking, COPD, CAD, Cancer, CVA, ARF, Chemo, Hep., AIDS, mental health diagnosis, sleep apnea, morbid obesity)? @ -Back pain Was patient admitted / discharged? Hospital course, mention meds given and route, prescriptions, significant lab abnormalities, going to OR and other pertinent info. @ -Discharge patient presented for back pain this is acute on chronic symptoms patient has no red flag symptoms she has no focal weakness. Patient is discharged in stable condition return parameters discussed. Undiagnosed new problem with uncertain prognosis? @ -No Drug Therapy requiring intensive monitoring for toxicity (Heparin, Nitro, Insulin, Cardizem)? @ -No Were any procedures done? @ -No Diagnosis/symptom? @ -Back pain Acute, or Chronic, or Acute on Chronic? @ -Acute on chronic Uncomplicated (without systemic symptoms) or Complicated (systemic symptoms)? @ -Uncomplicated Side effects of treatment? @ -No Exacerbation, Progression, or Severe Exacerbation? @ -No Poses a threat to life or bodily function? How? (Chest pain, USA, VT, pneumonia, PE, COPD, DKA, ARF, appy, cholecystitis, CVA, Diverticulitis, Homicidal, Suicidal, threat to staff... and all critical care pts) @ -No Disposition Clinical Impression: Back pain, Strain of lumbar region Disposition: HOME SELF-CARE Condition: Stable Instructions (If sedation given, give patient instructions): Acute Low Back Pain (ED) Additional Instructions: Please return to the Emergency Department if symptoms worsen or any other concerns. Prescriptions: traMADol HCl [Ultram] 50 mg PO Q6H PRN #12 tab PRN Reason: Pain Is patient prescribed a controlled substance at d/c from ED?: No Referrals: None,Stated [Primary Care Provider] - 1-2 days Time of Disposition: 07:23
[2024-05-07] MEDS: traMADol 50 MG STARTER PACK 3 TAB BTL PO STA (07:35)
[2024-05-07 07:42] VITALS: BP 142/89; PULSE 71
== END 2024-05-07 07:42 | disposition home or self-care (01) ==
LOC: EC 07:08
DX: S39.012A Strain of muscle, fascia and tendon of lower back, initial encounter (principal); Z88.8 Allergy status to other drugs, medicaments and biological substances; Z91.010 Allergy to peanuts; Z88.6 Allergy status to analgesic agent; Z87.891 Personal history of nicotine dependence; X58.XXXA Exposure to other specified factors, initial encounter
CPT/HCPCS: 99283

== ENCOUNTER 2024-11-19 09:10 | Emergency (ER) | payer OTHER ==
[2024-11-19 09:14] VITALS: RESP 18
--- NOTE | 2024-11-19 09:29 | ED ---
Back Pain HPI - General Chief Complaint: Back Pain/Injury Stated Complaint: back pain Time Seen by Provider: 11/19/24 09:15 Source: patient, RN notes reviewed Limitations: no limitations - History of Present Illness Initial Comments: 43-year-old female presents emergency department with chief complaint of low back pain. Patient states she was putting away [employer] bins and then over injured her back. She denies any bowel, bladder incontinence retention no saddle anesthesias. Patient states that this is her typical back pain. She denies any abdominal pain. Patient offers no other complaints. - Related Data Previous Rx's Medication Instructions Recorded Ibuprofen [Motrin] 600 mg PO Q8HR PRN #30 tab 01/07/21 Ketorolac [Toradol] 10 mg PO Q6HR PRN #15 tab 05/20/22 traMADol HCl [Ultram] 50 mg PO Q6H PRN #12 tab 05/07/24 traMADol HCl [Ultram] 50 mg PO Q6H PRN #12 tab 11/19/24 Allergies Allergy/AdvReac Type Severity Reaction Status Date / Time baclofen Allergy Rash/Hives Verified 11/19/24 09:14 carisoprodol [From Soma] Allergy Unknown Verified 11/19/24 09:14 cyclobenzaprine Allergy Rash/Hives Verified 11/19/24 09:14 methocarbamol [From Robaxin] Allergy Rash/Hives Verified 11/19/24 09:14 naproxen [From Naprosyn] Allergy Nausea Verified 11/19/24 09:14 orphenadrine [From Norflex] Allergy Vomiting Verified 11/19/24 09:14 peanut Allergy Anaphylaxis Verified 11/19/24 09:14 Pork/Porcine Containing Allergy Rash/Hives Verified 11/19/24 09:14 Products [Pork] rice Allergy Rash/Hives Verified 11/19/24 09:14 tree nut [Nut] Allergy Swelling Verified 11/19/24 09:14 ketorolac [From Toradol] AdvReac Vomiting Verified 11/19/24 09:14 muscle relaxers Allergy Unknown Uncoded 11/19/24 09:14 steroids AdvReac Rash/Hives Uncoded 11/19/24 09:14 Review of Systems ROS Statement: Those systems with pertinent positive or pertinent negative responses have been documented in the HPI. ROS Other: All systems not noted in ROS Statement are negative. Past Medical History Past Medical History: Seizure Disorder Additional Past Medical History / Comment(s): cyst on kidney, migraines, back pain, brain tumors, History of Any Multi-Drug Resistant Organisms: None Reported Past Surgical History: Cholecystectomy, Tonsillectomy Past Psychological History: No Psychological Hx Reported Smoking Status: Former smoker Past Alcohol Use History: None Reported Past Drug Use History: None Reported General Exam Limitations: no limitations General appearance: alert, in no apparent distress Head exam: Present: atraumatic, normocephalic, normal inspection Neck exam: Present: normal inspection, full ROM. Absent: tenderness, meningismus, lymphadenopathy Respiratory exam: Present: normal lung sounds bilaterally. Absent: respiratory distress, wheezes, rales, rhonchi, stridor Cardiovascular Exam: Present: regular rate, normal rhythm, normal heart sounds. Absent: systolic murmur, diastolic murmur, rubs, gallop, clicks GI/Abdominal exam: Present: soft, normal bowel sounds. Absent: distended, tenderness, guarding, rebound, rigid Extremities exam: Present: normal inspection, full ROM, normal capillary refill. Absent: tenderness, pedal edema, joint swelling, calf tenderness Back exam: Present: full ROM, tenderness, paraspinal tenderness. Absent: vertebral tenderness Neurological exam: Present: alert, oriented X3, CN II-XII intact, reflexes normal. Absent: motor sensory deficit Course Vital Signs 11/19/24 11/19/24 09:13 09:36 Temperature 98 F 98.5 F Pulse Rate 75 76 Respiratory 18 18 Rate Blood Pressure 134/86 117/80 O2 Sat by Pulse 98 98 Oximetry Medical Decision Making - Medical Decision Making Was pt. sent in by a medical professional or institution (, PA, B[employer], urgent care, hospital, or [facility]...) When possible be specific @ -No Did you speak to anyone other than the patient for history (EMS, parent, family, police, friend...)? What history was obtained from this source @ -No Did you review nursing and triage notes (agree or disagree)? Why? @ -I reviewed and agree with nursing and triage notes Were old charts reviewed (outside hosp., previous admission, EMS record, old EKG, old radiological studies, urgent care reports/EKG's, [facility] records)? Report findings @ -No old charts were reviewed Differential Diagnosis (chest pain, altered mental status, abdominal pain women, abdominal pain men, vaginal bleeding, weakness, fever, dyspnea, syncope, headache, dizziness, GI bleed, back pain, seizure, CVA, palpatations, mental health, musculoskeletal)? @ -Differential Back Pain: Strain, zoster, cauda equina syndrome, epidural abscess, vertebral osteomyelitis, discitis, fracture, subluxation, disc herniation, DJD, spinal stenosis, dissection, AAA, pancreatitis, peptic ulcer disease, pyelonephritis, kidney stone, this is not meant to be an all-inclusive list. EKG interpreted by me (3pts min.). @ -None X-rays interpreted by me (1pt min.). @ -None done CT interpreted by me (1pt min.). @ -None done U/S interpreted by me (1pt. min.). @ -None done What testing was considered but not performed or refused? (CT, X-rays, U/S, labs)? Why? @ -None What meds were considered but not given or refused? Why? @ -None Did you discuss the management of the patient with other professionals (professionals i.e. , PA, B[employer], lab, RT, psych nurse, social media community manager, special weapons and tactics officer, teacher, branch lending officer, case management associate)? Give summary @ -No Was smoking cessation discussed for >3mins.? @ -No Was critical care preformed (if so, how long)? @ -No Were there social determinants of health that impacted care today? How? (Homelessness, low income, unemployed, alcoholism, drug addiction, transportation, low edu. Level, literacy, decrease access to med. care, intermediate, rehab)? @ -No Was there de-escalation of care discussed even if they declined (Discuss DNR or withdrawal of care, Hospice)? DNR status @ -No What co-morbidities impacted this encounter? (DM, HTN, Smoking, COPD, CAD, Cancer, CVA, ARF, Chemo, Hep., AIDS, mental health diagnosis, sleep apnea, morbid obesity)? @ -None Was patient admitted / discharged? Hospital course, mention meds given and route, prescriptions, significant lab abnormalities, going to OR and other pertinent info. @ -Discharge patient has lumbar strain with no red flag symptoms. Patient feels comfortable discharge without imaging return parameters were discussed. Undiagnosed new problem with uncertain prognosis? @ -No Drug Therapy requiring intensive monitoring for toxicity (Heparin, Nitro, Insulin, Cardizem)? @ -No Were any procedures done? @ -No Diagnosis/symptom? @ -Lumbar strain Acute, or Chronic, or Acute on Chronic? @ -Acute Uncomplicated (without systemic symptoms) or Complicated (systemic symptoms)? @ -uncomplicated Side effects of treatment? @ -No Exacerbation, Progression, or Severe Exacerbation? @ -No Poses a threat to life or bodily function? How? (Chest pain, [place], [place], pneumonia, PE, COPD, DKA, ARF, appy, cholecystitis, CVA, Diverticulitis, Homicidal, Suicidal, threat to staff... and all critical care pts) @ -No Disposition Clinical Impression: Strain of lumbar region Disposition: HOME SELF-CARE Condition: Stable Instructions (If sedation given, give patient instructions): Acute Low Back Pain (ED) Additional Instructions: Please return to the Emergency Department if symptoms worsen or any other concerns. Prescriptions: traMADol HCl [Ultram] 50 mg PO Q6H PRN #12 tab PRN Reason: Pain Is patient prescribed a controlled substance at d/c from ED?: Yes When asked, does pt state using other controlled substances?: No If prescribed controlled substance>3 days was MAPS reviewed?: Prescribed <3 Days If opioid is for acute pain is fill amount 7 days or less?: Yes If Rx opioid, was Start Talking consent form obtained?: Yes Referrals: Aubrey Dinh MD [Primary Care Provider] - 1-2 days Time of Disposition: 09:28
[2024-11-19] MEDS: traMADol 50 MG STARTER PACK 3 TAB BTL PO STA (09:34)
[2024-11-19 09:38] VITALS: BP 117/80; PULSE 76; TEMP 98.5
== END 2024-11-19 09:36 | disposition home or self-care (01) ==
LOC: EC 09:10
DX: S39.012A Strain of muscle, fascia and tendon of lower back, initial encounter (principal); Z87.891 Personal history of nicotine dependence; Z88.6 Allergy status to analgesic agent; Z91.018 Allergy to other foods; Z91.010 Allergy to peanuts; Z88.8 Allergy status to other drugs, medicaments and biological substances; W19.XXXA Unspecified fall, initial encounter; Y93.59 Activity, other involving other sports and athletics played individually
CPT/HCPCS: 99283